=== PATIENT | male | born 1940 | race Caucasian/White ===

== ENCOUNTER 2019-06-02 09:19 | Outpatient (CLI) | payer OTHER, SELFPAY ==
[2019-06-02 09:40] LABS: Basophils Percent Auto 0.7 % (0.2-1.2); Eosinophils Absolute Auto 0.2 K/mm3 (0-0.3); Hematocrit 36.7 % (42.0-52.0); Hemoglobin 12.6 g/dL (14.0-18.0); Immature Granulocyte Absolute 0.01 K/mm3 (0.00-0.031); Immature Granulocyte Percent A 0.2 % (0-0.5); Lymphocytes Absolute Auto 1.01 K/mm3 (0.9-3.2); Lymphocytes Percent Auto 22.1 % (18.3-44.2); Mean Corpuscular HGB Conc 34.3 g/dl (32-36); Mean Corpuscular Hemoglobin 36.3 pg (26-34); Mean Corpuscular Volume 105.8 fl (80-100); Mean Platelet Volume 9.4 fl (7.4-10.4); Monocytes Absolute Auto 0.5 K/mm3 (0.1-0.6); Monocytes Percent Auto 10.3 % (2.6-8.5); Neutrophils Absolute Auto 2.8 K/mm3 (1.3-6.7); Neutrophils Percent Auto 61.7 % (45.5-73.1); Platelet Count Result 103 k/mm3 (150-375); Red Blood Count 3.47 M/mm3 (4.6-6.20); White Blood Count 4.6 K/mm3 (4.5-10.0)
[2019-06-02 12:28] LABS: Alanine Aminotransferase 43 U/L (4-50); Albumin Level 3.8 g/dL (3.5-5.1); Alkaline Phosphatase 77 U/L (38-126); Aspartate Amino Transferase 40 U/L (17-59); Bilirubin,Total 0.8 mg/dL (0.2-1.3); Blood Urea Nitrogen 18 mg/dL (9-20); Calcium 8.9 mg/dL (8.4-10.2); Carbon Dioxide 24 mmol/L (22-30); Chloride 101 mmol/L (98-107); Estimated Glomerular Filt Rate 53; Glucose 330 mg/dL (75-110); Potassium 4.7 mmol/L (3.4-5.0); Sodium 134 mmol/L (137-145)
[2019-06-02 13:55] LABS: Iron 97 ug/dL (49-181); Percent Iron Saturation 37 % (20-50)
[2019-06-02 16:46] LABS: Hemoglobin A1C 7.6 % (<5.7)
== END 2019-06-02 09:20 | disposition home or self-care (01) ==
PROVIDERS: Nurse Practitioner Family; PCP Family Medicine; Visit Provider Internal Medicine Hematology & Oncology
DX: E83.19 Other disorders of iron metabolism (principal); E11.65 Type 2 diabetes mellitus with hyperglycemia
CPT/HCPCS: 36415; 80053; 82728; 83036; 83540; 83550; 85025

== ENCOUNTER 2019-11-27 08:48 | Outpatient (CLI) | payer OTHER, SELFPAY ==
[2019-11-27 09:16] LABS: Basophils Percent Auto 0.3 % (0.2-1.2); Eosinophils Absolute Auto 0.1 K/mm3 (0-0.3); Eosinophils Percent Auto 4.5 % (0-4.4); Hematocrit 37.8 % (42.0-52.0); Hemoglobin 12.8 g/dL (14.0-18.0); Immature Granulocyte Absolute 0.01 K/mm3 (0.00-0.031); Immature Granulocyte Percent A 0.3 % (0-0.5); Immature Platelet Fraction Pct 5.2 % (0.9-11.2); Lymphocytes Absolute Auto 0.94 K/mm3 (0.9-3.2); Mean Corpuscular HGB Conc 33.9 g/dl (32-36); Mean Corpuscular Hemoglobin 35.9 pg (26-34); Mean Corpuscular Volume 105.9 fl (80-100); Mean Platelet Volume 10.1 fl (7.4-10.4); Monocytes Absolute Auto 0.5 K/mm3 (0.1-0.6); Monocytes Percent Auto 15.3 % (2.6-8.5); Neutrophils Absolute Auto 1.6 K/mm3 (1.3-6.7); Neutrophils Percent Auto 49.6 % (45.5-73.1); Platelet Count Result 91 k/mm3 (150-375); Red Blood Count 3.57 M/mm3 (4.6-6.20); Red Cell Distribution Width 12.4 % (11.5-14.5); White Blood Count 3.1 K/mm3 (4.5-10.0)
[2019-11-27 09:17] LABS: Atypical Lymphocytes Present; Platelet Estimate Decreased (Adequate)
[2019-11-27 15:21] LABS: Iron 99 ug/dL (49-181)
[2019-11-27 15:30] LABS: Percent Iron Saturation 38 % (20-50)
[2019-11-27 15:36] LABS: Alanine Aminotransferase 47 U/L (4-50); Albumin Level 3.7 g/dL (3.5-5.1); Alkaline Phosphatase 67 U/L (38-126); Anion Gap 12.5 mmol/L (7-16); Aspartate Amino Transferase 51 U/L (17-59); Bilirubin,Total 0.5 mg/dL (0.2-1.3); Blood Urea Nitrogen 22 mg/dL (9-20); Calcium 8.4 mg/dL (8.4-10.2); Carbon Dioxide 23 mmol/L (22-30); Chloride 105 mmol/L (98-107); Estimated Glomerular Filt Rate 53; Glucose 126 mg/dL (75-110); Potassium 4.5 mmol/L (3.4-5.0); Sodium 136 mmol/L (137-145)
== END 2019-11-27 08:49 | disposition home or self-care (01) ==
PROVIDERS: PCP Family Medicine; Visit Provider Internal Medicine Hematology & Oncology
DX: D69.6 Thrombocytopenia, unspecified (principal)
CPT/HCPCS: 36415; 80053; 82728; 83540; 83550; 85025; 85055

== ENCOUNTER 2020-05-26 08:39 | Outpatient (CLI) | payer OTHER, SELFPAY ==
[2020-05-26 09:18] LABS: Basophils Percent Auto 0.7 % (0.2-1.2); Eosinophils Absolute Auto 0.2 K/mm3 (0-0.3); Eosinophils Percent Auto 3.7 % (0-4.4); Hematocrit 37.9 % (42.0-52.0); Hemoglobin 12.9 g/dL (14.0-18.0); Immature Granulocyte Absolute 0.01 K/mm3 (0.00-0.031); Immature Granulocyte Percent A 0.2 % (0-0.5); Immature Platelet Fraction Pct 14.5 % (0.9-11.2); Lymphocytes Absolute Auto 1.02 K/mm3 (0.9-3.2); Lymphocytes Percent Auto 23.6 % (18.3-44.2); Mean Corpuscular Hemoglobin 36.6 pg (26-34); Mean Corpuscular Volume 107.7 fl (80-100); Monocytes Absolute Auto 0.5 K/mm3 (0.1-0.6); Neutrophils Absolute Auto 2.6 K/mm3 (1.3-6.7); Neutrophils Percent Auto 59.8 % (45.5-73.1); Platelet Count Result 61 k/mm3 (150-375); Red Blood Count 3.52 M/mm3 (4.6-6.20); Red Cell Distribution Width 12.2 % (11.5-14.5); White Blood Count 4.3 K/mm3 (4.5-10.0)
[2020-05-26 11:22] LABS: Iron 205 ug/dL (49-181)
[2020-05-26 11:24] LABS: Alanine Aminotransferase 52 U/L (4-50); Albumin Level 3.6 g/dL (3.5-5.1); Alkaline Phosphatase 70 U/L (38-126); Anion Gap 4 mmol/L (8-16); Aspartate Amino Transferase 52 U/L (17-59); Bilirubin,Total 1.3 mg/dL (0.2-1.3); Blood Urea Nitrogen 18 mg/dL (9-20); Calcium 8.5 mg/dL (8.4-10.2); Carbon Dioxide 26 mmol/L (22-30); Chloride 105 mmol/L (98-107); Estimated Glomerular Filt Rate 53; Glucose 180 mg/dL (75-110); Potassium 4.6 mmol/L (3.4-5.0); Sodium 135 mmol/L (137-145)
[2020-05-26 11:29] LABS: Hemoglobin A1C 7.5 % (<5.7)
[2020-05-26 11:34] LABS: Percent Iron Saturation 82 % (20-50)
== END 2020-05-26 08:40 | disposition home or self-care (01) ==
LOC: ANHLAB 08:41
PROVIDERS: Internal Medicine Hematology & Oncology; PCP Family Medicine; Visit Provider Physician Assistant
DX: E83.19 Other disorders of iron metabolism (principal); E11.22 Type 2 diabetes mellitus with diabetic chronic kidney disease; I12.9 Hypertensive chronic kidney disease with stage 1 through stage 4 chronic kidney disease, or unspecified chronic kidney disease; N18.30 Chronic kidney disease, stage 3 unspecified
CPT/HCPCS: 36415; 80053; 82728; 83036; 83540; 83550; 85025; 85055

== ENCOUNTER 2020-08-02 08:33 | Outpatient (CLI) | payer OTHER, SELFPAY ==
[2020-08-02 08:51] LABS: Eosinophils Absolute Auto 0.2 K/mm3 (0-0.3); Eosinophils Percent Auto 5.2 % (0-4.4); Hematocrit 35.3 % (42.0-52.0); Hemoglobin 11.9 g/dL (14.0-18.0); Immature Granulocyte Absolute 0.02 K/mm3 (0.00-0.031); Immature Granulocyte Percent A 0.5 % (0-0.5); Lymphocytes Absolute Auto 1.06 K/mm3 (0.9-3.2); Lymphocytes Percent Auto 26.4 % (18.3-44.2); Mean Corpuscular HGB Conc 33.7 g/dl (32-36); Mean Corpuscular Hemoglobin 37.1 pg (26-34); Mean Platelet Volume 9.6 fl (7.4-10.4); Monocytes Absolute Auto 0.5 K/mm3 (0.1-0.6); Neutrophils Absolute Auto 2.2 K/mm3 (1.3-6.7); Neutrophils Percent Auto 54.9 % (45.5-73.1); Platelet Count Result 99 k/mm3 (150-375); Red Blood Count 3.21 M/mm3 (4.6-6.20); Red Cell Distribution Width 12.4 % (11.5-14.5)
[2020-08-02 12:36] LABS: Iron 140 ug/dL (49-181)
[2020-08-02 12:44] LABS: Alanine Aminotransferase 49 U/L (4-50); Albumin Level 3.6 g/dL (3.5-5.1); Alkaline Phosphatase 60 U/L (38-126); Anion Gap 6 mmol/L (8-16); Aspartate Amino Transferase 51 U/L (17-59); Blood Urea Nitrogen 19 mg/dL (9-20); Calcium 8.5 mg/dL (8.4-10.2); Carbon Dioxide 26 mmol/L (22-30); Chloride 106 mmol/L (98-107); Estimated Glomerular Filt Rate 53; Glucose 155 mg/dL (75-110); Potassium 4.3 mmol/L (3.4-5.0); Sodium 138 mmol/L (137-145)
[2020-08-02 12:46] LABS: Percent Iron Saturation 58 % (20-50)
[2020-08-07 18:02] LABS: Platelet Ab,Indirect (IgA) POSITIVE (NEGATIVE); Platelet Ab,Indirect (IgG) POSITIVE (NEGATIVE); Platelet Ab,Indirect (IgM) NEGATIVE (NEGATIVE)
== END 2020-08-02 08:34 | disposition home or self-care (01) ==
LOC: ANHLAB 08:35
PROVIDERS: PCP Family Medicine; Visit Provider Internal Medicine Hematology & Oncology
DX: D69.6 Thrombocytopenia, unspecified (principal); E83.19 Other disorders of iron metabolism
CPT/HCPCS: 36415; 80053; 82728; 83540; 83550; 85025; 86022

== ENCOUNTER 2021-01-27 08:24 | Outpatient (CLI) | payer OTHER, SELFPAY ==
[2021-01-27 09:09] LABS: Basophils Percent Auto 0.1 % (0.2-1.2); Eosinophils Absolute Auto 0.2 K/mm3 (0-0.3); Eosinophils Percent Auto 2.5 % (0-4.4); Hematocrit 38.9 % (42.0-52.0); Immature Granulocyte Absolute 0.06 K/mm3 (0.00-0.031); Immature Granulocyte Percent A 0.7 % (0-0.5); Lymphocytes Absolute Auto 1.86 K/mm3 (0.9-3.2); Mean Corpuscular HGB Conc 33.4 g/dl (32-36); Mean Corpuscular Hemoglobin 37.1 pg (26-34); Mean Corpuscular Volume 111.1 fl (80-100); Monocytes Absolute Auto 0.6 K/mm3 (0.1-0.6); Monocytes Percent Auto 7.3 % (2.6-8.5); Neutrophils Absolute Auto 5.7 K/mm3 (1.3-6.7); Neutrophils Percent Auto 67.4 % (45.5-73.1); Platelet Count Result 74 k/mm3 (150-375); Red Cell Distribution Width 13.1 % (11.5-14.5); White Blood Count 8.5 K/mm3 (4.5-10.0)
[2021-01-27 11:22] LABS: Iron 112 ug/dL (49-181)
[2021-01-27 11:25] LABS: Alanine Aminotransferase 54 U/L (4-50); Albumin Level 3.7 g/dL (3.5-5.1); Alkaline Phosphatase 64 U/L (38-126); Anion Gap 12 mmol/L (8-16); Aspartate Amino Transferase 72 U/L (17-59); Bilirubin,Total 1.7 mg/dL (0.2-1.3); Blood Urea Nitrogen 35 mg/dL (9-20); Calcium 8.9 mg/dL (8.4-10.2); Carbon Dioxide 19 mmol/L (22-30); Chloride 104 mmol/L (98-107); Estimated Glomerular Filt Rate 58; Glucose 104 mg/dL (65-110); Potassium 3.9 mmol/L (3.4-5.0); Sodium 135 mmol/L (137-145)
[2021-01-27 11:31] LABS: Percent Iron Saturation 47 % (20-50)
== END 2021-01-27 08:25 | disposition home or self-care (01) ==
LOC: ANHLAB 08:25
PROVIDERS: PCP Family Medicine; Visit Provider Internal Medicine Hematology & Oncology
DX: E83.19 Other disorders of iron metabolism (principal)
CPT/HCPCS: 36415; 80053; 82728; 83540; 83550; 85025

== ENCOUNTER 2021-04-11 16:21 | Observation (INO) | payer OTHER, SELFPAY ==
--- NOTE | ~2021-04-11 | CT_ITS ---
EXAMINATION: CT abdomen pelvis w con DATE: 04/11/2021 21:33 INDICATION: Sepsis. Elevated bilirubin. TECHNIQUE: Computed tomography (CT) of the abdomen and pelvis was performed with 100 cc Omnipaque 350 intravenous contrast. The dose-length product was 1394.76 mGy-cm. Automated exposure control and ite rative reconstruction technique were employed. COMPARISON: CT dated 09/03/2016. FINDINGS: Lung bases are unremarkable. Heart size normal. No significant pleural or pericardial effus ion. Mild atherosclerosis of the abdominal aorta without aneurysm. No evidence for abdominal lymphade nopathy. There is cirrhosis of the liver. There is ascites. There is splenomegaly. There are multiple varices in the upper abdomen, suspicious for portal hypertension. There are gallstones. Mild gallbladder wall thickening with possible pericholecystic fluid. There is a heterogeneously enhancing irregular shape d 3 cm right renal mass, consistent with renal cell carcinoma until proven otherwise. There is a nono bstructing left renal stone. The adrenal glands and pancreas are within normal limits. Status post pa rtial colectomy. There is apical normal mass at the proximal colon contiguous with the surgical anast omosis. Colonic diverticulosis without evidence for diverticulitis. There are multiple ventral abdomi nal wall hernias containing fat. Moderate lumbar spondylosis. No focal lytic or blastic lesions. IMPRESSION: 1. Cholelithiasis with gallbladder wall thickening and pericholecystic fluid, suspicious for cholecys titis in the appropriate clinical setting. 2: Heterogeneously enhancing 3 cm right renal mass, consistent with renal cell carcinoma until proven otherwise. 3: Proximal colon mass at the surgical anastomosis, suspicious for adenocarcinoma. 4: Cirrhosis of the liver with evidence for portal hypertension and splenomegaly. 5: Small amount of ascites. Reviewed, dictated and finalized at location A. T OPERATIONS WORKER IMPRESSION: 1. Cholelithiasis with gallbladder wall thickening and pericholecystic fluid, s uspicious for cholecystitis in the appropriate clinical setting. 2: Heterogeneously enhancing 3 cm right renal mass, consistent with renal cell carcinoma until proven otherwise. 3: Proximal colon mass at the surgical anastomosis, suspicious for adenocarcin nick. 4: Cirrhosis of the liver with evidence for portal hypertension and splenomegal y. 5: Small amount of ascites.
--- NOTE | ~2021-04-11 | XR_ITS ---
EXAMINATION: XR chest 1V portable 04/11/2021 19:57 INDICATION: Fever and chills. History of tachycardia. Hypertension. PROCEDURE: AP portable chest COMPARISON: 10/22/2017 FINDINGS: The lungs are clear. The cardiomediastinal silhouette is within normal limits. There are no pleural effusions. There is no pneumothorax suspected. IMPRESSION: 1: NO ACUTE CARDIOPULMONARY DISEASE. Reviewed, dictated and finalized at location A. LLMENT NURSE
--- NOTE | ~2021-04-11 | XR_ITS ---
EXAMINATION: XR chest 1V portable INDICATION: Fever TECHNIQUE: Portable AP chest at 0604 hours COMPARISON: 04/11/2021 FINDINGS: There are minimal interstitial and airspace opacities throughout the lungs. The heart size is upper limits of normal for technique. There is no pleural effusion or pneumothorax. IMPRESSION: 1. Mild diffuse lung disease, consistent with pneumonia and/or pulmonary edema. Reviewed, dictated and finalized at location A. GER MAINTENANCE
--- NOTE | ~2021-04-11 | NM_ITS ---
EXAMINATION: NM hepatobiliary w pharm EXAM DATE: 04/13/2021 09:18 INDICATION: Cholecystitis. Cirrhosis, ascites. TECHNIQUE: 5 mCi Tc-99m mebrofenin (Choletec) was administered intravenously. Scintigraphic images o f the abdomen were obtained for one hour. At the 1 hour time point, 2.2 mcg sincalide (Kinevac) was a dministered by slow intravenous infusion, and imaging was continued for 30 minutes. Gallbladder eject ion fraction was calculated by the technologist. Correlation is made to CT abdomen pelvis from 2020. FINDINGS: There is normal clearance of radiotracer from the blood pool. There is homogeneous tracer u ptake by the liver. Activity progresses to the gallbladder and bowel. The gallbladder ejection fract ion (GBEF) is 81 % (most patients with gallbladder dysfunction have GBEF < 35%, but there is overlap with the normal range of 10-90%). IMPRESSION: Gallbladder ejection fraction 81%, normal. Some other considerations for gallbladder fin dings on CT include interstitial edema, chronic liver disease. Reviewed, dictated and finalized at location B. GRAPHER IMPRESSION: Gallbladder ejection fraction 81%, normal. Some other consideratio ns for gallbladder findings on CT include interstitial edema, chronic liver dis ease.
[2021-04-11 16:41] VITALS: BP 155/51; PULSE 98; RESP 20; TEMP 38.2; O2SAT 96
[2021-04-11 19:16] VITALS: BP 139/50; PULSE 92; RESP 18; TEMP 37.6; O2SAT 98
[2021-04-11 19:47] VITALS: PULSE 91; RESP 16; TEMP 37.7; O2SAT 98
[2021-04-11 19:52] VITALS: RESP 16
[2021-04-11 20:23] LABS: Hematocrit 34.5 % (42.0-52.0); Hemoglobin 11.6 g/dL (14.0-18.0); Immature Platelet Fraction Pct 4.4 % (0.9-11.2); Mean Corpuscular HGB Conc 33.6 g/dl (32-36); Mean Corpuscular Hemoglobin 38.2 pg (26-34); Mean Corpuscular Volume 113.5 fl (80-100); Mean Platelet Volume 10.1 fl (7.4-10.4); Platelet Count Result 106 k/mm3 (150-375); Red Blood Count 3.04 M/mm3 (4.6-6.20); Red Cell Distribution Width 13.9 % (11.5-14.5); White Blood Count 13.9 K/mm3 (4.5-10.0)
[2021-04-11 20:35] LABS: Albumin Level 3.9 g/dL (3.5-5.1); Alkaline Phosphatase 55 U/L (38-126); Anion Gap 11 mmol/L (8-16); Aspartate Amino Transferase 63 U/L (17-59); Bilirubin,Total 2.7 mg/dL (0.2-1.3); Blood Urea Nitrogen 17 mg/dL (9-20); Calcium 9.2 mg/dL (8.4-10.2); Carbon Dioxide 20 mmol/L (22-30); Chloride 102 mmol/L (98-107); Estimated CRCL calculation 51 ml/min; Estimated Glomerular Filt Rate 58; Glucose 252 mg/dL (65-110); Lactic Acid Reflex 5.1 mmol/L (0.7-2.1); Potassium 4.6 mmol/L (3.4-5.0); Sodium 133 mmol/L (137-145)
[2021-04-11 20:36] LABS: Platelet Estimate Adequate (Adequate)
--- NOTE | 2021-04-11 20:36 | ED.FEVER ---
HPI - Fever General Chief Complaint: Fever <Ye Recinos MD - Last Filed: 04/11/21 21:15> Stated Complaint: chills, fever <Ye Recinos MD - Last Filed: 04/11/21 21:15> Time Seen by Provider: 04/11/21 19:46 <Ye Recinos MD - Last Filed: 04/11/21 21:15> Source: patient and family <Ye Recinos MD - Last Filed: 04/11/21 21:15> Mode of arrival: ambulatory <Ye Recinos MD - Last Filed: 04/11/21 21:15> Limitations: no limitations <Ye Recinos MD - Last Filed: 04/11/21 21:15> History of Present Illness HPI Narrative: 80-year-old male History of hypertension and type 2 diabetes Patient complains of abrupt onset around 10:00 this morning of chills and sweats Family checked on him and found him buried under a bunch of blankets Patient complains that he feels dehydrated but he does not have any other focal symptoms, denies a sore throat, no cough or shortness of breath, no nausea vomiting or diarrhea, no urinary symptoms no rash or musculoskeletal pains <Ye Recinos MD - Last Filed: 04/11/21 21:15> Related Data Home Medications: Home Medications Medication Instructions Recorded Confirmed aspirin 81 mg tablet,delayed 81 mg PO DAILY 01/04/21 01/04/21 release <Ye Recinos MD - Last Filed: 04/11/21 21:15> Allergies/Adverse Reactions: Allergies Allergy/AdvReac Type Severity Reaction Status Date / Time EUGENE Inhibitors Allergy Intermediate cough Verified 01/04/21 13:54 shellfish derived Allergy Mild Itching Verified 04/11/21 20:38 AND RASH <Ye Recinos MD - Last Filed: 04/11/21 21:15> Review of Systems Review of Systems: All systems reviewed & are unremarkable except as noted in HPI and below <Ye Recinos MD - Last Filed: 04/11/21 21:15> Constitutional: Constitutional: Reports chills, Reports fatigue, Reports fever(s) and Denies headache(s) <Ye Recinos MD - Last Filed: 04/11/21 21:15> Eyes: Eyes: Reports no additional eye complaints and Denies change in vision <Ye Recinos MD - Last Filed: 04/11/21 21:15> ENT: Denies headache(s) and Denies sore throat <Ye Recinos MD - Last Filed: 04/11/21 21:15> Cardiovascular: Cardiovascular: Denies chest pain and Denies dyspnea <Ye Recinos MD - Last Filed: 04/11/21 21:15> Respiratory: Respiratory: Denies cough and Denies dyspnea <Ye Recinos MD - Last Filed: 04/11/21 21:15> Gastrointestinal: Gastrointestinal: Denies abdominal pain, Denies diarrhea and Denies vomiting <Ye Recinos MD - Last Filed: 04/11/21 21:15> Genitourinary: Genitourinary: Denies dysuria and Denies urinary frequency <Ye Recinos MD - Last Filed: 04/11/21 21:15> Musculoskeletal: Musculoskeletal: Reports myalgias, Denies deformity, Denies arthralgias, Denies joint swelling and Denies numbness <Ye Recinos MD - Last Filed: 04/11/21 21:15> Integumentary/Breasts: Skin/Breast: Denies rash and Denies wounds <Ye Recinos MD - Last Filed: 04/11/21 21:15> Neurologic: Denies headache(s), Denies focal weakness and Denies numbness <Ye Recinos MD - Last Filed: 04/11/21 21:15> Psychiatric: Psychiatric: Reports no additional psychiatric complaints <Ye Recinos MD - Last Filed: 04/11/21 21:15> Endocrine: Endocrine: Reports no additional endocrine complaints <Ye Recinos MD - Last Filed: 04/11/21 21:15> Hematologic/Lymphatic: Hematologic/Lymphatic: Reports no additional hematologic/lymphatic complaints <Ye Recinos MD - Last Filed: 04/11/21 21:15> Allergic/Immunologic: Allergic/Immunologic: Reports no additional allergic/immunologic complaints <Ye Recinos MD - Last Filed: 04/11/21 21:15> PMFSH Past Medical History Medical History: Medical History (Updated 04/11/21 @ 23:21 by Prosper Russell MD) Alcohol abuse Alcohol dependence, in remission Benign reactive hypertension Chronic kidney disease, stage 3 (moderate) Chronic kidney disease, stage 3a Cirrhosis
[2021-04-11 20:44] LABS: Alanine Aminotransferase 52 U/L (4-50)
[2021-04-11] MEDS: LACTATED RINGERS 1,000 ML 999 ML IV CONT ×2 (21:00→22:26)
[2021-04-11 21:57] LABS: Add Urine Microscopic? YES; Appearance Urine Clear (Clear); Bacteria Urine 1+ /hpf; Bilirubin Urine Negative (Negative); Blood Urine 1+ (Negative); Color Urine Yellow (Yellow); Glucose Urine UA 2+ mg/dL (Negative); Ketones Urine Negative (Negative); Leukocyte Esterase Ur 1+ LEU/UL (Negative); Mucus Urine Rare /lpf; Nitrate Urine Negative (Negative); Protein Urine 1+ mg/dL (Negative); Squamous Epithelial Cell Urine Few /hpf (Few)
[2021-04-11 22:01] LABS: Specific Grav Ur 1.043 (1.001-1.035)
[2021-04-11 22:27] VITALS: BP 154/106; PULSE 90; RESP 18; O2SAT 98
[2021-04-11 22:38] VITALS: BP 175/79
[2021-04-11 23:19] LABS: Reflex Lactic Acid Yes or No Add Lactic
[2021-04-12] VITALS (15 sets, daily range): BP systolic 156–180; BP diastolic 61–82; PULSE 72–88; RESP 12–19; TEMP 36.6–37.1; O2SAT 95–100; BMI 36.6
[2021-04-12] MEDS: SODIUM CHLORIDE 0.9% IV 1,000 ML 125 ML IV CONT ×3 (02:45→18:14)
--- NOTE | 2021-04-12 04:53 | PM.IMHP ---
H&P: HPI History of Present Illness Date/Time: 04/12/21 04:53 Chief Complaint: Chills Narrative: This is a 80-year-old male with past medical history of hypertension and type 2 diabetes history of colon cancer diagnosed in 2010 status post colectomy history of alcohol abuse portal hypertension presents with abrupt onset of chills and feeling dehydrated. He denies any other symptoms like sore throat cough shortness of breath no nausea vomiting or diarrhea. Also denies any urinary symptoms. His family brought him in for evaluation. In the ER he was noted to have fever of 38.2 mildly hypertensive adequate oxygen saturation. Laboratory evaluation showed mild leukocytosis at 13.9 mild hyponatremia of 133 mild anemia at 11.6 hyperglycemia of 252 was noted to have elevated lactic acid was 5.1 along with mildly elevated transaminases and total bilirubin of 2.7. Influenza screen a and B was done which came back negative. She has been swab for COVID which is pending. His urinalysis showed some RBC along with WBC and urine culture has been sent. He has felt better since he is been in the ER. Chest x-ray was negative for any acute cardiopulmonary disease. He subsequently had a CT abdomen and pelvis done for infectious source which revealed multiple different abnormal findings. 1. cholelithiasis with gallbladder wall thickening and pericholecystic fluid suspicious for cholecystitis 2. heterogeneously enhancing 3 cm right renal mass consistent with renal cell carcinoma 3. proximal colon mass at the surgical anastomosis suspicious for adenocarcinoma 4. cirrhosis of liver with evidence for portal hypertension and splenomegaly 5. small amount of ascites Tertiary center were contacted for transfer for further treatment however none of the facilities had open bed available and hence he is getting admitted for further treatment. Review of Systems Review of Systems: - CONSTITUTIONAL: Denies weight loss, reports fever and chills. - HEENT: Denies changes in vision and hearing - RESPIRATORY: Denies SOB and cough. - CV: Denies palpitations and CP. - GI: Denies abdominal pain, nausea, vomiting and diarrhea. - : Denies dysuria and urinary frequency. - MSK: Denies myalgia and joint pain. - SKIN: Denies rash and pruritus. - NEUROLOGICAL: Denies headache and syncope. - PSYCHIATRIC: Denies recent changes in mood. Denies anxiety and depression. All systems reviewed & are unremarkable except as noted in HPI and below Constitutional: Constitutional: Reports fatigue and Reports weakness Neurologic: Reports weakness Endocrine: Endocrine: Reports fatigue [facility] Past Medical History Medical History (Updated 04/11/21 @ 23:21 by Prosper Russell MD) Alcohol abuse Alcohol dependence, in remission Benign reactive hypertension Chronic kidney disease, stage 3 (moderate) Chronic kidney disease, stage 3a Cirrhosis Colon cancer DISH (diffuse idiopathic skeletal hyperostosis) Diverticulosis DM type 2 causing CKD stage 3 History of colon cancer Macrocytic anemia Neuropathy associated with cancer Obesity (BMI 30.0-34.9) 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 Portal hypertension Thrombocytopenia Type 2 diabetes mellitus with diabetic chronic kidney disease Surgical History Surgical History History of colon resection Family History Family History (Updated 04/12/21 @ 03:40 by Marilynn Fernando RN) Sibling Family history of malignant neoplasm of testis Malignant neoplasm of prostate Family history of arthritis Patient's brother is Hypertension Family history of gout Social History Social History Social History: Single Smoking status: Never smoker Second hand tobacco smoke exposure: No Alcohol intake: current Drinks per week: 4 Alcohol use details: couple times a month Substance use: never Subs
[2021-04-12 06:34] LABS: Basophils Percent Auto 0.2 % (0.2-1.2); Eosinophils Absolute Auto 0.1 K/mm3 (0-0.3); Eosinophils Percent Auto 0.8 % (0-4.4); Hematocrit 31.9 % (42.0-52.0); Hemoglobin 10.7 g/dL (14.0-18.0); Immature Granulocyte Absolute 0.05 K/mm3 (0.00-0.031); Immature Granulocyte Percent A 0.4 % (0-0.5); Lymphocytes Absolute Auto 1.18 K/mm3 (0.9-3.2); Lymphocytes Percent Auto 9.8 % (18.3-44.2); Mean Corpuscular HGB Conc 33.5 g/dl (32-36); Mean Corpuscular Hemoglobin 37.4 pg (26-34); Mean Corpuscular Volume 111.5 fl (80-100); Monocytes Absolute Auto 1.2 K/mm3 (0.1-0.6); Monocytes Percent Auto 9.9 % (2.6-8.5); Neutrophils Absolute Auto 9.5 K/mm3 (1.3-6.7); Neutrophils Percent Auto 78.9 % (45.5-73.1); Platelet Count Result 84 k/mm3 (150-375); Red Blood Count 2.86 M/mm3 (4.6-6.20); Red Cell Distribution Width 13.7 % (11.5-14.5); White Blood Count 12.1 K/mm3 (4.5-10.0)
[2021-04-12 06:40] LABS: Alanine Aminotransferase 41 U/L (4-50); Albumin Level 3.1 g/dL (3.5-5.1); Alkaline Phosphatase 52 U/L (38-126); Anion Gap 7 mmol/L (8-16); Aspartate Amino Transferase 45 U/L (17-59); Bilirubin,Total 1.9 mg/dL (0.2-1.3); Blood Urea Nitrogen 16 mg/dL (9-20); Calcium 8.9 mg/dL (8.4-10.2); Carbon Dioxide 23 mmol/L (22-30); Chloride 106 mmol/L (98-107); Estimated CRCL calculation 51 ml/min; Estimated Glomerular Filt Rate 58; Glucose 251 mg/dL (65-110); Potassium 3.8 mmol/L (3.4-5.0); Sodium 136 mmol/L (137-145)
[2021-04-12 06:41] LABS: Hemoglobin A1C 7.4 % (<5.7)
[2021-04-12 06:42] LABS: Lactic Acid Reflex 2.3 mmol/L (0.7-2.1)
--- NOTE | 2021-04-12 08:19 | WPDGICN ---
Assessment and Plan Assessment and plan (1) Fever: Qualifiers: Fever type: unspecified Qualified Code(s): R50.9 - Fever, unspecified Code(s): R50.9 - Fever, unspecified Status: Acute Assessment and Plan: Fever noted at time of presentation. Etiology unclear but scanning suggest he may have cholelithiasis with cholecystitis. Agree with surgical evaluation. Timing of intervention and cholecystectomy may be complicated by findings on the CT scan including underlying cirrhosis and apparent recurrent colon mass. (2) Kidney mass: Code(s): N28.89 - Other specified disorders of kidney and ureter Status: Acute Assessment and Plan: CT scan suggest patient has a renal cell carcinoma. Hematuria is noted on the urinalysis. Follow-up with Urology service is suggested but this may be secondary to his other infectious process. (3) Colonic mass: Code(s): K63.89 - Other specified diseases of intestine Status: Acute Assessment and Plan: CT scan suggest a colon mass. Patient does have a history of colon cancer in 2009 felt to be cured. Given the mass at the anastomosis, recurrent cancer needs to be excluded by a colonoscopy. Alternate explanations for this mass includes scar tissue Septra. Likely this will need to be accomplished before surgery unless patient decompensates. Hopefully this can be done or Saturday this week. (4) Cholelithiasis: Qualifiers: Biliary obstruction: without biliary obstruction Cholelithiasis location: other site Qualified Code(s): K80.80 - Other cholelithiasis without obstruction Code(s): K80.20 - Calculus of gallbladder without cholecystitis without obstruction Status: Acute Assessment and Plan: CT scan suggest gallstones and possible cholecystitis. Surgery follow-up anticipated. Ultimate cholecystectomy likely to be required but could be higher risk because of what appears to be underlying cirrhosis of liver. (5) Obesity (BMI 30.0-34.9): Code(s): E66.9 - Obesity, unspecified Status: Acute (6) Alcohol abuse: Code(s): F10.10 - Alcohol abuse, uncomplicated Status: Acute (7) Cirrhosis: Code(s): K74.60 - Unspecified cirrhosis of liver Status: Acute Assessment and Plan: Patient appears to have cirrhosis of the liver this correlates with his lab work including thrombocytopenia and macrocytosis. This also correlates with x-ray findings. This appears to be on the basis of his significant alcohol abuse over the years. Likely will complicate surgical plans. Surgery consult farr pending. Supportive care advised at this time. He only has mild ascites evident on the CT scan. Low-salt diet would be advised in low dose of diuretics if necessary. GI Consult Note Consult date/time: 04/12/21 08:19 HPI: Robby Graves is a 80 year old male I am asked to see because of history of colon cancer and abnormal CT scan findings. Patient reported to be in his usual state of health till 1 week ago when he began to have a fever. Began to have chills and for this reason presented to the emergency room. He denies abdominal pain or change in bowel habits. He has been eating adequately. A CT scan of the abdomen was performed which revealed multiple abnormalities including of renal mass. Changes consistent with cirrhosis of the liver. Gallstones with suspicion of cholecystitis. Evidence for previous right hemicolectomy with question of a mass at the ileocolonic anastomosis. Patient has a distant history of colon cancer in 2009 this was resected and felt stable. He gives no history of follow-up for that. He has seen Oncology because of Thrombocytopenia. At present patient denies abdominal pain. His bowel habits been normal apparently has been eating well. He does drink alcohol routine basis. Review of Systems Review of Systems: All systems reviewed & are unremarkable
[2021-04-12 08:48] LABS: EDCOVIDSCREEN Negative (Negative)
[2021-04-12 09:25] LABS: Glucose Point of Care 200 mg/dl (65-105)
[2021-04-12] MEDS: ASPIRIN 81 MG ENTERIC TABLET PO (09:35)
[2021-04-12] MEDS: ENOXAPARIN 40 MG/0.4 ML SYRINGE SUB-Q (09:36)
[2021-04-12 11:07] LABS: Carcinoembryonic Antigen 4.2 ng/mL (0.0-3.0)
--- NOTE | 2021-04-12 11:50 | PC.NURSE ---
Assumed care of pt, currently resting in NAD. Pt A&Ox4, denies any needs at this time. Lunch order placed for patient. Call light in reach.
--- NOTE | 2021-04-12 12:17 | PM.CNGS ---
Assessment and Plan Assessment and plan (1) Acute calculous cholecystitis: Code(s): K80.00 - Calculus of gallbladder with acute cholecystitis without obstruction Status: Acute Assessment and Plan: CT scan reviewed and discussed with the patient in detail. He has evidence of cholelithiasis with gallbladder wall thickening and pericholecystic fluid, concerning for acute cholecystitis. He also has leukocytosis and presented with a low-grade fever. His LFTs are elevated, but have trended down this morning. He also has a history of liver cirrhosis with portal hypertension. The patient is not complaining of any abdominal pain and denies any recent issues with abdominal pain prior to admission. Clinically, he appears to be improving with current medical management. The Hospitalist ordered a HIDA scan for today. We will await these results. He would be an extremely high risk surgical candidate for a cholecystectomy considering his liver cirrhosis and multiple medical problems. If the HIDA scan does show cystic duct obstruction, then we may need to consider percutaneous cholecystostomy tube placement. For now, continue broad-spectrum IV antibiotics. Repeat labs and monitor closely. We would agree with a colonoscopy to further assess the possible colon mass noted on the CT scan. If this is found to be a recurrent colon cancer, then we would likely recommend he seek further treatment at a tertiary care facility who also has hepatobiliary specialists to help coordinate his care. Thank you for allowing us to see the patient in consultation and we will continue to follow along with you. (2) SIRS (systemic inflammatory response syndrome): Code(s): R65.10 - Systemic inflammatory response syndrome (SIRS) of non-infectious origin without acute organ dysfunction Status: Acute Assessment and Plan: SIRS criteria met with leukocytosis, fever, and lactic acidosis. Unclear etiology. Possibly secondary to acute cholecystitis, although patient is completely asymptomatic. CXR without any acute findings. UA not suggestive of UTI. Blood cultures pending. Continue broad-spectrum IV antibiotics and IV fluids. HIDA pending. Monitor labs. (3) Elevated lactic acid level: Code(s): R79.89 - Other specified abnormal findings of blood chemistry Status: Acute Assessment and Plan: Lactic acid 5.1 on admission and has come down to 2.3 with IV fluid hydration and medical management. Continue to monitor labs. See plan above. (4) Colonic mass: Code(s): K63.89 - Other specified diseases of intestine Status: Acute Assessment and Plan: GI and Oncology consulted. He has a mass in the proximal colon where the previous anastomosis is located. This is concerning for adenocarcinoma. CEA checked and elevated at 4.2. GI recommendations noted and planning a colonoscopy in the next 1-2 days. (5) Kidney mass: Code(s): N28.89 - Other specified disorders of kidney and ureter Status: Acute Assessment and Plan: Right renal mass that is incidentally noted on the CT scan. In review of his chart, he did have a CT scan in 2017 for a right renal mass found on an ultrasound. At that time, the Radiologist suggested this appeared to be a hemorrhagic cystic mass and he was found to have other renal cysts. I discussed the findings with the patient. Imaging could be compared to 2017. Oncology was consulted. (6) Cirrhosis: Code(s): K74.60 - Unspecified cirrhosis of liver Status: Acute Assessment and Plan: He has known alcoholic liver cirrhosis with evidence of portal hypertension and small volume of ascites on the CT scan. This makes the patient a very high risk surgical candidate for a cholecystectomy. See plan above. (7) Type 2 diabetes mellitus with diabetic chronic kidney disease: Code(s): E11.22 - Type 2 diabetes mellitus with diabetic chronic kidney disease Status: Acute (8) History of colon cancer:
--- NOTE | 2021-04-12 12:47 | PDONCCN ---
HPI - Date of Consult Date/Time: 04/12/21 12:47 Requesting Physician: Darwin Anthony MD Primary Care Provider: Sneha Garcia MD - Consult Narrative Reason for consult: Relapsed colon cancer and renal mass Narrative: Robby Graves is a 80 year old male with history of colon cancer diagnosed in 2009 status post colectomy as well as history of liver cirrhosis secondary to alcohol abuse. He came into the hospital with fevers and chills for couple of days duration. He denies any cough and sore throat. He denies any diarrhea and nausea vomiting. Denies any shortness of breath. Labs showed WBC count of 13.9 with hemoglobin of 11.6. CT abdomen and pelvis was performed that showed 3 cm right renal mass consistent with renal cell carcinoma as well as proximal colon mass at surgical anastomosis site suspicious for relapse adenocarcinoma along with liver cirrhosis and splenomegaly. He denies any diarrhea constipation and bleeding. He denies any dysuria and hematuria. Weight and appetite stable Review of Systems - Review of Systems All systems reviewed & are unremarkable except as noted in HPI and bel - Neurologic Reports weakness, Denies headache(s), Denies focal weakness, Denies numbness PMFSH Medical History: Medical History (Last Reviewed 04/12/21 @ 12:43 by TEJA Rome) Alcohol abuse Benign reactive hypertension Chronic kidney disease, stage 3 (moderate) Cirrhosis with portal hypertension and ascites DISH (diffuse idiopathic skeletal hyperostosis) Diverticulosis DM type 2 causing CKD stage 3 History of colon cancer 2009 s/p right hemicolectomy and chemotherapy Macrocytic anemia Neuropathy associated with cancer Portal hypertension Thrombocytopenia Surgical History: Surgical History (Last Reviewed 04/12/21 @ 12:43 by TEJA Rome) History of colon resection 2009 Family History: Family History (Last Reviewed 04/12/21 @ 12:43 by TEJA Rome) Sibling Family history of malignant neoplasm of testis Malignant neoplasm of prostate Family history of arthritis Patient's brother is Hypertension Family history of gout - Social History Social History: Social History (Last Reviewed 04/12/21 @ 12:43 by TEJA Rome) Gender Identity: Gender identity (if verbalized by the patient): Male Sexual Orientation: Sexual Orientation (if Verbalized by the Patient): Straight or Heterosexual Alcohol Use: Alcohol intake: current Drinks per week: 4 Alcohol use details: couple times a month Substance Use: Substance use: never Substance use type: does not use Others: Spiritual care concerns: No Living Arrangements: Living arrangements: alone Smoking Status: Smoking status: Never smoker Second hand tobacco smoke exposure: No Meds Home Medications Medication Instructions Recorded Confirmed Type lancets 33 gauge #100 ea 08/23/20 04/12/21 Rx blood sugar diagnostic #300 ea 08/25/20 04/12/21 Rx blood sugar diagnostic #300 ea 09/06/20 04/12/21 Rx losartan 25 mg tablet 25 mg PO BID #180 tablet 11/23/20 04/12/21 Rx metformin 1,000 mg tablet 1,000 mg PO BID #180 tablet 11/23/20 04/12/21 Rx aspirin 81 mg tablet,delayed 81 mg PO DAILY 01/04/21 04/12/21 History release Allergies Allergy/AdvReac Type Severity Reaction Status Date / Time EUGENE Inhibitors Allergy Intermediate cough Verified 04/12/21 03:35 shellfish derived Allergy Mild Itching Verified 04/12/21 03:35 AND RASH Results - Labs CBC & Chem 7: 04/12/21 06:20 04/12/21 06:20 Labs: Short CBC 04/11/21 04/12/21 Range/Units 20:15 06:20 WBC 13.9 H 12.1 H (4.5-10.0) K/mm3 Hgb 11.6 L 10.7 L (14.0-18.0) g/dL Hct 34.5 L 31.9 L (42.0-52.0) % Plt Count 106 L 84 L (150-375) k/mm3 [facility] 04/11/21 04/12/21 20:15 06:20 Sodium 133 L 136 L Potassium 4.6 3.8 Chloride 1
[2021-04-12 13:34] LABS: Glucose Point of Care 226 mg/dl (65-105)
[2021-04-12 14:30] LABS: SARS-CoV-2 RNA PCR Negative
[2021-04-12] MEDS: INSULIN ASPART (*BKC) 100 UNITS/ML SUB-Q (14:35)
--- NOTE | 2021-04-12 14:44 | PM.IMPN ---
Progress Note: A&P Assessment and Plan (1) Sepsis: Code(s): A41.9 - Sepsis, unspecified organism Status: Acute (2) Acute calculous cholecystitis: Code(s): K80.00 - Calculus of gallbladder with acute cholecystitis without obstruction Status: Acute (3) Kidney mass: Code(s): N28.89 - Other specified disorders of kidney and ureter Status: Acute (4) Colonic mass: Code(s): K63.89 - Other specified diseases of intestine Status: Acute (5) Cirrhosis: Code(s): K74.60 - Unspecified cirrhosis of liver Status: Acute (6) Alcohol dependence, in remission: Code(s): F10.21 - Alcohol dependence, in remission Status: Deleted (7) Chronic kidney disease, stage 3a: Code(s): N18.31 - Chronic kidney disease, stage 3a Status: Deleted (8) Type 2 diabetes mellitus with diabetic chronic kidney disease: Code(s): E11.22 - Type 2 diabetes mellitus with diabetic chronic kidney disease Status: Acute (9) History of colon cancer: Code(s): Z85.038 - Personal history of other malignant neoplasm of large intestine Status: Acute (10) Portal hypertension: Code(s): K76.6 - Portal hypertension Status: Acute (11) Benign reactive hypertension: Code(s): I10 - Essential (primary) hypertension Status: Acute (12) Obesity (BMI 30.0-34.9): Code(s): E66.9 - Obesity, unspecified Status: Deleted Additional Plan Patient presents with complaints of fever and found to have sepsis present on admission (fever, leukocytosis and lactic acidosis). Etiology unclear but concern for acute cholecystitis. UA noted but no UCx obtained. BCx pending. CXR clear. UTD on vaccines. Influenza negative. Agree with HIDA scan. WBC better. Fever curve better. Continue IV abx. General surgery consulted and appreciate their input. CT scan also showing colonic mass at the anastomotic site. CEA elevated to 4.2. GI consulted with plans for colonoscopy in the morning. The renal mass notes and blood in the urine. Consider RCC. Will need to follow up with urology after discharge once the acute process improved. He has a hx of colon cancer and oncology also consulted and appreciate their input. A1c 7.4. Continue sliding scale. He will be NPO after MN. Review home medications and resume. Continue to monitor. Further recommendations as course dictates. Stop Lovenox and ASA given the low plt count and possible procedures that are planned. SCDs. Subjective Date/time seen: 04/12/21 14:44 Interval history: 80yo male with cirrhosis and hx of colon cancer here for fevers. Patient feels well. No n/v. Has been having diarrheal stools. Not on abx recently. No dysuria or heamturia. Having fevers off/on x 1 week. No anosmia or dysgeusia. No cough or SOB. No weight loss. No abd pain. 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 COVID vaccine with booster. Had flu vaccine in January. Exam Narrative: Tm 100.8 98.4 180/64 76 13 95% RA Gen - NARD Chest - bibasilar inspiratory crackles, nml RR CV - RRR S1/S2 Abd - Soft, obese, NT Ext - trace pedal edema Neuro - Alert and oriented. Nonfocal exam. Psych - Nml mood and affect Skin - small diffuse excoriations/papules mostly abd and LE. Objective Data Vital Signs Vital Signs: Vital Signs - 24 hr 04/11/21 16:41 04/11/21 19:16 04/11/21 19:47 Temperature 100.8 F H 99.6 F 99.8 F H Pulse Rate 98 92 91 Respiratory Rate 20 18 16 Blood Pressure 155/51 H 139/50 L Pulse Oximetry 96 98 98 04/11/21 19:52 04/11/21 22:27 04/11/21 22:38 Temperature Pulse Rate 90 Respiratory Rate 16 18 Blood Pressure 154/106 H 175/79 H Pulse Oximetry 98 04/12/21 00:16 04/12/21 06:20 04/12/21 07:49 Temperature 98.7 F 98.4 F Pulse Rate 88 80 76 Respiratory Rate 18 18 18 Blood Pressure 158/82 H 180/64 H Pulse Oximetry 99 98 95 04/12/21 11:02 04/12/21 11:15 04/12/21 11
--- NOTE | 2021-04-12 16:23 | ADMGEN ---
This patient, Robby Graves, was admitted to [facility] Surg Room 306-02. Patient/family oriented to hospital policies and general routines including ID bracelet, bed and alarms, visiting hours, pain management, procedures, bathroom and other care routines, personal items, smoking policy, room service/diet, and visiting hours. Information on how to activate the Rapid Response Team has been discussed. Patient/Family are encouraged to report perceived risks to care and to ask questions if they do not understand what they are told or what they should do.
[2021-04-12] MEDS: LOSARTAN POTASSIUM 25 MG TABLET PO (17:04)
[2021-04-12 17:11] LABS: Glucose Point of Care 188 mg/dl (65-105)
[2021-04-12 21:55] LABS: Glucose Point of Care 163 mg/dl (65-105)
[2021-04-13 00:21] VITALS: O2SAT 95
[2021-04-13] MEDS: SODIUM CHLORIDE 0.9% IV 1,000 ML 125 ML IV CONT ×2 (01:01→11:11)
[2021-04-13 05:59] VITALS: BP 127/60; PULSE 63; RESP 18; TEMP 36.8; O2SAT 97
[2021-04-13 07:10] LABS: Basophils Percent Auto 0.6 % (0.2-1.2); Eosinophils Absolute Auto 0.3 K/mm3 (0-0.3); Eosinophils Percent Auto 4.1 % (0-4.4); Hematocrit 29.7 % (42.0-52.0); Hemoglobin 9.9 g/dL (14.0-18.0); Immature Granulocyte Absolute 0.02 K/mm3 (0.00-0.031); Immature Granulocyte Percent A 0.3 % (0-0.5); Lymphocytes Absolute Auto 1.09 K/mm3 (0.9-3.2); Lymphocytes Percent Auto 16.6 % (18.3-44.2); Mean Corpuscular HGB Conc 33.3 g/dl (32-36); Mean Corpuscular Hemoglobin 37.6 pg (26-34); Mean Corpuscular Volume 112.9 fl (80-100); Mean Platelet Volume 10.2 fl (7.4-10.4); Monocytes Absolute Auto 0.7 K/mm3 (0.1-0.6); Monocytes Percent Auto 10.4 % (2.6-8.5); Neutrophils Absolute Auto 4.5 K/mm3 (1.3-6.7); Platelet Count Result 80 k/mm3 (150-375); Red Blood Count 2.63 M/mm3 (4.6-6.20); Red Cell Distribution Width 13.7 % (11.5-14.5); White Blood Count 6.6 K/mm3 (4.5-10.0)
[2021-04-13 07:20] LABS: INR 1.6; Prothrombin Time 18.6 Seconds (11.1-14.7)
[2021-04-13 07:21] LABS: Partial Thromboplastin Time 39.4 SECONDS (22.3-36.8)
[2021-04-13 07:23] LABS: Lactic Acid Reflex 1.1 mmol/L (0.7-2.1)
[2021-04-13 07:25] LABS: Alanine Aminotransferase 35 U/L (4-50); Albumin Level 2.8 g/dL (3.5-5.1); Alkaline Phosphatase 49 U/L (38-126); Anion Gap 9 mmol/L (8-16); Aspartate Amino Transferase 40 U/L (17-59); Bilirubin,Total 1.5 mg/dL (0.2-1.3); Blood Urea Nitrogen 14 mg/dL (9-20); CRP 8.9 mg/dL (<1.0); Carbon Dioxide 20 mmol/L (22-30); Chloride 110 mmol/L (98-107); Estimated CRCL calculation 49 ml/min; Estimated Glomerular Filt Rate 53; Glucose 129 mg/dL (65-110); Magnesium 1.8 mg/dL (1.6-2.3); Phosphorus 2.7 mg/dL (2.5-4.5); Potassium 3.7 mmol/L (3.4-5.0); Sodium 139 mmol/L (137-145)
--- NOTE | 2021-04-13 09:31 | WPDGIPROGNO ---
Progress Note: A&P Assessment and Plan (1) Acute calculous cholecystitis: Code(s): K80.00 - Calculus of gallbladder with acute cholecystitis without obstruction Status: Acute Assessment and Plan: Acute cholecystitis with gallstones identified by CT scan. Patient is to have HIDA scan today. Surgery following. Clinically he is improving on antibiotics. (2) Alcohol abuse: Code(s): F10.10 - Alcohol abuse, uncomplicated Status: Acute Assessment and Plan: Long time use of alcohol abuse identified. He should discontinue alcohol use. (3) Kidney mass: Code(s): N28.89 - Other specified disorders of kidney and ureter Status: Acute Assessment and Plan: Renal mass suspicious for renal cell carcinoma identified by CT scan. Ultimately will need nephrology follow-up at some point electively. Hematuria peers to be on this basis. (4) Colonic mass: Code(s): K63.89 - Other specified diseases of intestine Status: Acute Assessment and Plan: CT scan suggest mass at the ileocolonic anastomosis. Colonoscopy will be planned tomorrow after preparation today. He has not had screening colonoscopy after colon cancer resection 10 years ago. CEA is mildly elevated (5) Diverticulosis: Code(s): K57.90 - Diverticulosis of intestine, part unspecified, without perforation or abscess without bleeding Status: Chronic (6) History of colon cancer: Code(s): Z85.038 - Personal history of other malignant neoplasm of large intestine Status: Acute Assessment and Plan: patient has a history of colon cancer resected 10 years ago in [place]. Plan is for follow-up colonoscopy at this time given finding of a suspicious lesion at the ileocolonic anastomosis on CT scan. (7) Cirrhosis: Code(s): K74.60 - Unspecified cirrhosis of liver Status: Acute Assessment and Plan: Patient has cirrhosis of the liver evident by lab test as well as clinical exam and CT scan findings. Continued supportive care suggested. Subjective Date/time seen: 04/13/21 09:31 Patient alert and comfortable this morning. He denies abdominal pain. No fever. Bowel habits have remained normal. Review of Systems Review of Systems: All systems reviewed & are unremarkable except as noted in HPI and below Exam Narrative: On physical exam patient is alert. Vital signs stable. HEENT exam reveals no icterus. Lungs are clear. Heart without murmur. Abdomen is obese. Modest distention identified. Bowel sounds are present soft nontender with no organomegaly. Objective Data Vital Signs Vital Signs: Vital Signs - 24 hr 04/12/21 11:02 04/12/21 11:15 04/12/21 11:30 Temperature Pulse Rate 78 75 80 Respiratory Rate 15 13 15 Blood Pressure Pulse Oximetry 04/12/21 11:45 04/12/21 12:02 04/12/21 12:15 Temperature Pulse Rate 78 76 76 Respiratory Rate 15 15 13 Blood Pressure Pulse Oximetry 04/12/21 14:35 04/12/21 14:39 04/12/21 14:45 Temperature Pulse Rate 74 72 75 Respiratory Rate 14 12 19 Blood Pressure 169/71 H Pulse Oximetry 100 04/12/21 15:00 04/12/21 22:00 04/13/21 00:21 Temperature 97.8 F Pulse Rate 77 73 Respiratory Rate 13 18 Blood Pressure 156/73 H Pulse Oximetry 100 98 95 04/13/21 05:59 Temperature 98.2 F Pulse Rate 63 Respiratory Rate 18 Blood Pressure 127/60 Pulse Oximetry 97 Intake/Output Intake/Output: Intake & Output 04/10/21 04/11/21 04/12/21 04/13/21 23:59 23:59 23:59 23:59 Intake Total 1050 3940 1350 Balance 1050 3940 1350 Meds/Results Medications: Active Medications Generic Name Dose Route Start Last Admin Trade Name Freq PRN Reason Stop Dose Admin Dextrose 12.5 gm 04/12/21 04:52 Dextrose 50% 25 Gm/50 Ml Syringe IV PUSH PRN PRN Hypoglycemia Protocol Glucagon 1 mg 04/12/21 04:52 Glucagon For Inj 1 Mg Vial IM PRN PRN Hypoglycem
[2021-04-13 09:33] LABS: Glucose Point of Care 121 mg/dl (65-105)
[2021-04-13 10:00] VITALS: O2SAT 97
[2021-04-13] MEDS: LOSARTAN POTASSIUM 25 MG TABLET PO ×2 (11:09→18:14)
[2021-04-13] MEDS: PEG (High)/E-LYTE SOLN 4,000 ML BTL 4000 ML PO (11:12)
--- NOTE | 2021-04-13 11:54 | PM.PNGS ---
Progress Note: A&P Assessment and Plan (1) Cholelithiasis without cholecystitis: Onset Date: Unknown Code(s): K80.20 - Calculus of gallbladder without cholecystitis without obstruction Status: Acute Assessment and Plan: Today's HIDA scan shows that there is no acute cholecystitis. Gallbladder did fill. Also there was a much better than average ejection fraction on that portion of the study. I have discussed this with Dr. Maciel Rodriguez regarding that I doubt that his gallbladder caused the infectious signs that he experienced such as fever, lactic acid elevation, and elevated white count. the only possibility I can think of his there is some possibility that he passed a small stone that got stuck temporarily in the common bile duct, but this study also shows that the bile duct drains. So I think this is unlikely. Also the patient did not experience any pain suggestive of that type of an incident. depending on the findings his colonoscopy I believe this patient is probably best served for surgery either for just his gallbladder at some point or to combine a resection for his bowel and gallbladder at the same time at a tertiary care center where a team can follow his gross is surrounding the time of surgery and ideal eyes him for intra-abdominal surgery in view of his thrombocytopenia, signs of cirrhosis and elevated clotting factors. I have also discussed this with Dr. Mendosa he has a hepatobiliary surgeon in mind at [facility] if the patient wishes to go there. I did mention this to the patient and his daughter today. For now I will sign off the patient's case but check back to see what the findings of colonoscopy are. Please call if you need further assistance from General surgery. (2) Diverticulosis: Code(s): K57.90 - Diverticulosis of intestine, part unspecified, without perforation or abscess without bleeding Status: Chronic Assessment and Plan: known from previous colonoscopy. (3) Colonic mass: Code(s): K63.89 - Other specified diseases of intestine Status: Acute Assessment and Plan: This is suspected on recent CT scan of the abdomen and pelvis. From the report sounds as if this is most likely near the site of his previous ileocolic anastomosis. If surgical intervention is needed would suggest patient consider having surgery at a tertiary care center where a team approach be used in view of his significant cirrhosis. He is at increased risk for complications at the time of any intra-abdominal surgery. (4) Kidney mass: Code(s): N28.89 - Other specified disorders of kidney and ureter Status: Acute Assessment and Plan: See CT report. recommend urologic evaluation as an outpatient. (5) Alcohol abuse: Code(s): F10.10 - Alcohol abuse, uncomplicated Status: Acute Assessment and Plan: Further discussion with patient well POA daughter is present reveals that over the last 3 years patient has really cut back on his alcoholic intake. Typically limits o'clock intake now to 2-3 beers every Saturday. (6) Cirrhosis: Code(s): K74.60 - Unspecified cirrhosis of liver Status: Acute Assessment and Plan: Seen on CT but all parameters slightly improving with bilirubin down, sodium serum pretty normal and no history of bleeding from their sees seen. Does have thrombocytopenia and splenomegaly. (7) DM type 2 causing CKD stage 3: Code(s): E11.22 - Type 2 diabetes mellitus with diabetic chronic kidney disease; N18.3 - Chronic kidney disease, stage 3 (moderate) Status: Acute Assessment and Plan: As per primary service. (8) Thrombocytopenia: Code(s): D69.6 - Thrombocytopenia, unspecified Status: Acute Assessment and Plan: Most likely related to his splenomegaly secondary to cirrhosis. (9) Macrocytic anemia: Code(s): D53.9 - Nutritional anemia, unspecified Status: Acute
[2021-04-13 12:25] LABS: Glucose Point of Care 127 mg/dl (65-105)
--- NOTE | 2021-04-13 13:25 | PM.IMPN ---
Progress Note: A&P Assessment and Plan (1) Sepsis: Code(s): A41.9 - Sepsis, unspecified organism Status: Acute (2) Kidney mass: Code(s): N28.89 - Other specified disorders of kidney and ureter Status: Acute (3) Colonic mass: Code(s): K63.89 - Other specified diseases of intestine Status: Acute (4) Cirrhosis: Code(s): K74.60 - Unspecified cirrhosis of liver Status: Acute (5) Thrombocytopenia: Code(s): D69.6 - Thrombocytopenia, unspecified Status: Acute (6) Chronic kidney disease, stage 3a: Code(s): N18.31 - Chronic kidney disease, stage 3a Status: Deleted (7) Type 2 diabetes mellitus with diabetic chronic kidney disease: Code(s): E11.22 - Type 2 diabetes mellitus with diabetic chronic kidney disease Status: Acute (8) History of colon cancer: Code(s): Z85.038 - Personal history of other malignant neoplasm of large intestine Status: Acute (9) Portal hypertension: Code(s): K76.6 - Portal hypertension Status: Acute (10) Benign reactive hypertension: Code(s): I10 - Essential (primary) hypertension Status: Acute (11) Alcohol dependence, in remission: Code(s): F10.21 - Alcohol dependence, in remission Status: Deleted Additional Plan Patient presents with complaints of fever and found to have sepsis present on admission (fever, leukocytosis and lactic acidosis). Etiology unclear but concern for acute cholecystitis. UA noted but no UCx obtained. BCx pending. CXR clear. UTD on vaccines. Influenza negative. Agree with HIDA scan. WBC better. Fever curve better. Continue IV abx. General surgery consulted and appreciate their input. CT scan also showing colonic mass at the anastomotic site. CEA elevated to 4.2. GI consulted with plans for colonoscopy in the morning. The renal mass notes and blood in the urine. Consider RCC. Will need to follow up with urology after discharge once the acute process improved. He has a hx of colon cancer and oncology also consulted and appreciate their input. A1c 7.4. Continue sliding scale. He will be NPO after MN. Review home medications and resume. Continue to monitor. 16: No fevers overnight. White count is normal. CRP still elevated at 8.9. Renal function stable with mild metabolic acidosis but has been noted in the past. hgb dropped to 10 now from 11.6. Plt count low but stable. Feels well. No source for the fevers. BCx NGTD. CXR clear. HIDA with GB EF 81% making acute cholecystitis less likely. Remains on Zosyn. Stop IV fluids. Repeat CXR in the morning. Subjective Date/time seen: 04/13/21 13:25 Interval history: 80yo male with cirrhosis and hx of colon cancer here for fevers. No CP. No fever or cough. No sore throat or other complaints. Toelrating bowel prep. Exam Narrative: AF 98.2 127/60 63 18 97% RA Gen - NARD Chest - mild bibasilar inspiratory rhonchi CV - RRR S1/S2 Abd - Soft, obese, NT Ext - trace pedal edema Psych - Nml mood and affect Skin - mild diffuse dry papular and crusted rash Objective Data Vital Signs Vital Signs: Vital Signs - 24 hr 04/12/21 14:35 04/12/21 14:39 04/12/21 14:45 Temperature Pulse Rate 74 72 75 Respiratory Rate 14 12 19 Blood Pressure 169/71 H Pulse Oximetry 100 04/12/21 15:00 04/12/21 22:00 04/13/21 00:21 Temperature 97.8 F Pulse Rate 77 73 Respiratory Rate 13 18 Blood Pressure 156/73 H Pulse Oximetry 100 98 95 04/13/21 05:59 04/13/21 10:00 Temperature 98.2 F Pulse Rate 63 Respiratory Rate 18 Blood Pressure 127/60 Pulse Oximetry 97 97 Intake/Output Intake/Output: Intake & Output 04/10/21 04/11/21 04/12/21 04/13/21 23:59 23:59 23:59 23:59 Intake Total 1050 3940 2350 Balance 1050 3940 2350 Meds/Results Medications: Active Medications Generic Name Dose Route Start Last Admin Trade Name Freq PRN Reason Stop Dose Admin Dextrose 12.5 gm 04/12/21
[2021-04-13 14:00] VITALS: BP 151/78; PULSE 75; RESP 18; TEMP 36.4; O2SAT 95
[2021-04-13 17:15] LABS: Glucose Point of Care 120 mg/dl (65-105)
[2021-04-13 20:24] LABS: Glucose Point of Care 195 mg/dl (65-105)
[2021-04-13 22:00] VITALS: BP 158/65; PULSE 75; RESP 18; TEMP 36.9; O2SAT 99
[2021-04-14 05:52] VITALS: BP 135/58; PULSE 71; RESP 20; TEMP 36.9; O2SAT 98
[2021-04-14 06:54] LABS: Basophils Percent Auto 0.6 % (0.2-1.2); Eosinophils Absolute Auto 0.3 K/mm3 (0-0.3); Eosinophils Percent Auto 6.8 % (0-4.4); Hematocrit 30.9 % (42.0-52.0); Hemoglobin 10.5 g/dL (14.0-18.0); Immature Granulocyte Absolute 0.02 K/mm3 (0.00-0.031); Immature Granulocyte Percent A 0.4 % (0-0.5); Lymphocytes Absolute Auto 0.88 K/mm3 (0.9-3.2); Lymphocytes Percent Auto 17.5 % (18.3-44.2); Mean Corpuscular Hemoglobin 38.6 pg (26-34); Mean Corpuscular Volume 113.6 fl (80-100); Mean Platelet Volume 10.3 fl (7.4-10.4); Monocytes Absolute Auto 0.7 K/mm3 (0.1-0.6); Monocytes Percent Auto 13.1 % (2.6-8.5); Neutrophils Absolute Auto 3.1 K/mm3 (1.3-6.7); Neutrophils Percent Auto 61.6 % (45.5-73.1); Platelet Count Result 86 k/mm3 (150-375); Red Blood Count 2.72 M/mm3 (4.6-6.20); Red Cell Distribution Width 13.6 % (11.5-14.5)
[2021-04-14 07:14] LABS: Albumin Level 3.1 g/dL (3.5-5.1); Anion Gap 4 mmol/L (8-16); Blood Urea Nitrogen 13 mg/dL (9-20); CRP 4.6 mg/dL (<1.0); Calcium 7.8 mg/dL (8.4-10.2); Carbon Dioxide 23 mmol/L (22-30); Chloride 106 mmol/L (98-107); Estimated CRCL calculation 45 ml/min; Estimated Glomerular Filt Rate 49; Glucose 112 mg/dL (65-110); Magnesium 1.8 mg/dL (1.6-2.3); Phosphorus 2.9 mg/dL (2.5-4.5); Sodium 133 mmol/L (137-145)
[2021-04-14 08:11] LABS: Glucose Point of Care 122 mg/dl (65-105)
[2021-04-14 12:16] LABS: Glucose Point of Care 114 mg/dl (65-105)
[2021-04-14 12:30] VITALS: BP 171/66; PULSE 76; RESP 18; TEMP 36.6; O2SAT 98
--- NOTE | 2021-04-14 12:30 | PC.NURSE ---
To GI Lab per wheelchair at 1230 with an IV 22 right hand present and is saline locked. Denies pain or discomfort.
--- NOTE | 2021-04-14 13:00 | WPDANESEPPF ---
Anes - Initial Pre Proc Eval Procedure: Operation Date: 04/14/21 13:30 Proposed Procedures p Colonoscopy - Ye aSnz MD Date/Time: 04/14/21 13:00 Surgeon: Darwin Anthony MD Pre Op Diagnosis: Fever Patient Data Age: 80 Gender: M Height: 1.75 m Weight: 112.7 kg Last Vital Signs Temp 36.9 C 04/14/21 05:52 Pulse 71 04/14/21 05:52 Resp 20 04/14/21 05:52 BP 135/58 L 04/14/21 05:52 Pulse Ox 98 04/14/21 05:52 Allergies Allergy/AdvReac Type Severity Reaction Status Date / Time EUGENE Inhibitors Allergy Intermediate cough Verified 04/14/21 13:02 shellfish derived Allergy Mild Itching Verified 04/14/21 13:02 AND RASH Home Medications Medication Instructions Recorded Confirmed Type lancets 33 gauge #100 ea 08/23/20 04/12/21 Rx blood sugar diagnostic #300 ea 08/25/20 04/12/21 Rx blood sugar diagnostic #300 ea 09/06/20 04/12/21 Rx losartan 25 mg tablet 25 mg PO BID #180 tablet 11/23/20 04/12/21 Rx metformin 1,000 mg tablet 1,000 mg PO BID #180 tablet 11/23/20 04/12/21 Rx aspirin 81 mg tablet,delayed 81 mg PO DAILY 01/04/21 04/12/21 History release Laboratory Tests 04/13/21 04/13/21 04/14/21 17:07 20:12 05:52 WBC 5.0 K/mm3 K/mm3 (4.5-10.0) RBC 2.72 M/mm3 L M/mm3 (4.6-6.20) Hgb 10.5 g/dL L g/dL (14.0-18.0) Hct 30.9 % L % (42.0-52.0) MCV 113.6 fl H fl (80-100) MCH 38.6 pg H pg (26-34) MCHC 34.0 g/dl g/dl (32-36) RDW 13.6 % % (11.5-14.5) Plt Count 86 k/mm3 L k/mm3 (150-375) MPV 10.3 fl fl (7.4-10.4) Immature Gran % (Auto) 0.4 % % (0-0.5) Neut % (Auto) 61.6 % % (45.5-73.1) Lymph % (Auto) 17.5 % L % (18.3-44.2) Banks % (Auto) 13.1 % H % (2.6-8.5) Eos % (Auto) 6.8 % H % (0-4.4) Baso % (Auto) 0.6 % % (0.2-1.2) Lymph # (Auto) 0.88 K/mm3 L K/mm3 (0.9-3.2) Banks # (Auto) 0.7 K/mm3 H K/mm3 (0.1-0.6) Eos # (Auto) 0.3 K/mm3 K/mm3 (0-0.3) Baso # (Auto) 0.0 K/mm3 K/mm3 (0.0-0.1) Abs Immat Gran (auto) 0.02 K/mm3 K/mm3 (0.00-0.031) Absolute Neuts (auto) 3.1 K/mm3 K/mm3 (1.3-6.7) Absolute Nucleated RBC 0.0 K/mm3 K/mm3 (0.0-0.012) Nucleated RBC % 0.0 % % (0.0-0.2) Sodium Potassium Chloride Carbon Dioxide Anion Gap BUN Creatinine Estim Creat Clear Calc Estimated GFR Glucose POC Capillary Glucose 120 mg/dl H mg/dl 195 mg/dl H mg/dl (65-105) (65-105) Calcium Phosphorus Magnesium C-Reactive Protein Albumin 04/14/21 04/14/21 04/14/21 05:52 08:08 11:45 WBC RBC Hgb Hct MCV MCH MCHC RDW Plt Count MPV Immature Gran % (Auto) Neut % (Auto) Lymph % (Auto) Banks % (Auto) Eos % (Auto) Baso % (Auto) Lymph # (Auto) Banks # (Auto) Eos # (Auto) Baso # (Auto) Abs Immat Gran (auto) Absolute Neuts (auto) Absolute Nucleated RBC Nucleated RBC % Sodium 133 mmol/L L mmol/L (137-145) Potassium 4.0 mmol/L mmol/L (3.4-5.0) Chloride 106 mmol/L mmol/L (98-107) Carbon Dioxide 23 mmol/L mmol/L (22-30) Anion Gap 4 mmol/L L mmol/L (8-16) BUN 13 mg/dL mg/dL (9-20) Creatinine 1.40 mg/dL H mg/dL (0.7-1.3) Estim Creat Clear Calc 45 ml/min ml/min Estimated GFR 49 L (59 - ) Glucose 112 mg/dL H mg/dL (65-110) POC Capillary Glucose 122 mg/dl H
[2021-04-14] MEDS: LACTATED RINGERS 1,000 ML 150 ML IV CONT (13:08)
[2021-04-14 14:00] VITALS: BP 166/79; PULSE 73; RESP 19; TEMP 36.1; O2SAT 100
--- NOTE | 2021-04-14 14:12 | PM.IMPN ---
Progress Note: A&P Assessment and Plan (1) Sepsis: Code(s): A41.9 - Sepsis, unspecified organism Status: Acute (2) Kidney mass: Code(s): N28.89 - Other specified disorders of kidney and ureter Status: Acute (3) Colonic mass: Code(s): K63.89 - Other specified diseases of intestine Status: Acute (4) Cirrhosis: Code(s): K74.60 - Unspecified cirrhosis of liver Status: Acute (5) Thrombocytopenia: Code(s): D69.6 - Thrombocytopenia, unspecified Status: Acute (6) Chronic kidney disease, stage 3a: Code(s): N18.31 - Chronic kidney disease, stage 3a Status: Deleted (7) Type 2 diabetes mellitus with diabetic chronic kidney disease: Code(s): E11.22 - Type 2 diabetes mellitus with diabetic chronic kidney disease Status: Acute (8) History of colon cancer: Code(s): Z85.038 - Personal history of other malignant neoplasm of large intestine Status: Acute (9) Portal hypertension: Code(s): K76.6 - Portal hypertension Status: Acute (10) Benign reactive hypertension: Code(s): I10 - Essential (primary) hypertension Status: Acute (11) Alcohol dependence, in remission: Code(s): F10.21 - Alcohol dependence, in remission Status: Deleted Additional Plan Patient presents with complaints of fever and found to have sepsis present on admission (fever, leukocytosis and lactic acidosis). Etiology unclear but concern for acute cholecystitis. UA noted but no UCx obtained. BCx pending. CXR clear. UTD on vaccines. Influenza negative. Agree with HIDA scan. WBC better. Fever curve better. Continue IV abx. General surgery consulted and appreciate their input. CT scan also showing colonic mass at the anastomotic site. CEA elevated to 4.2. GI consulted with plans for colonoscopy in the morning. The renal mass notes and blood in the urine. Consider RCC. Will need to follow up with urology after discharge once the acute process improved. He has a hx of colon cancer and oncology also consulted and appreciate their input. A1c 7.4. Continue sliding scale. He will be NPO after MN. Review home medications and resume. Continue to monitor. 16: No fevers overnight. White count is normal. CRP still elevated at 8.9. Renal function stable with mild metabolic acidosis but has been noted in the past. hgb dropped to 10 now from 11.6. Plt count low but stable. Feels well. No source for the fevers. BCx NGTD. CXR clear. HIDA with GB EF 81% making acute cholecystitis less likely. Remains on Zosyn. Stop IV fluids. Repeat CXR in the morning. 04/14: CXR reviewed showing mild diffuse lung disease. Consider PNA or edema. WBC remaining normal and CRP trending downward. COVID PCR was negative. Cr up slightly but will follow. Currently on Zosyn. Platelet count low but stable. Remains on room air. Home on Augmentin when okay with others. Subjective Date/time seen: 04/14/21 14:12 Interval history: 80yo male with cirrhosis and hx of colon cancer here for fevers. No problems overnight. No CP or SOB. Slight cough that is nonproductive. Walking tothe bathroom and out in the halls. Exam Narrative: AF 97.8 171/66 76 18 98% RA Gen - NARD Chest - few basilar rhonchi CV - RRR Abd - soft, NT/ND Ext - trace pedal edema Psych - nml mood and affect Skin - warm and dry, difuse resolving rash noted Objective Data Vital Signs Vital Signs: Vital Signs - 24 hr 04/13/21 22:00 04/14/21 05:52 04/14/21 12:30 Temperature 98.5 F 98.5 F 97.8 F Pulse Rate 75 71 76 Respiratory Rate 18 20 18 Blood Pressure 158/65 H 135/58 L 171/66 H Pulse Oximetry 99 98 98 Intake/Output Intake/Output: Intake & Output 04/11/21 04/12/21 04/13/21 04/14/21 23:59 23:59 23:59 23:59 Intake Total 1050 3940 5620 100 Output Total 300 Balance 1050 3940 5620 -200 Meds/Results Medications: Active Medications Generic Name Dose Route Start Last Admin Tr
[2021-04-14 14:13] VITALS: BP 118/67; PULSE 67; RESP 13; O2SAT 97
[2021-04-14 14:23] VITALS: BP 133/70; PULSE 65; RESP 23; O2SAT 98
[2021-04-14 14:33] VITALS: BP 153/71; PULSE 71; RESP 18; O2SAT 94
[2021-04-14] MEDS: LOSARTAN POTASSIUM 25 MG TABLET PO ×2 (15:26→18:21)
--- NOTE | 2021-04-14 16:37 | PM.DS ---
DS: Admitting Diagnosis Discharge Date 04/14/21 Admitting Diagnosis Chills DS: Discharge Diagnosis Discharge Diagnosis (1) SIRS (systemic inflammatory response syndrome): Code(s): R65.10 - Systemic inflammatory response syndrome (SIRS) of non-infectious origin without acute organ dysfunction Status: Acute (2) Cholelithiasis without cholecystitis: Onset Date: Unknown Code(s): K80.20 - Calculus of gallbladder without cholecystitis without obstruction Status: Acute (3) Kidney mass: Code(s): N28.89 - Other specified disorders of kidney and ureter Status: Acute (4) Colonic mass: Code(s): K63.89 - Other specified diseases of intestine Status: Acute (5) Cirrhosis: Code(s): K74.60 - Unspecified cirrhosis of liver Status: Acute (6) Thrombocytopenia: Code(s): D69.6 - Thrombocytopenia, unspecified Status: Acute (7) Chronic kidney disease, stage 3a: Code(s): N18.31 - Chronic kidney disease, stage 3a Status: Deleted (8) Type 2 diabetes mellitus with diabetic chronic kidney disease: Code(s): E11.22 - Type 2 diabetes mellitus with diabetic chronic kidney disease Status: Acute (9) History of colon cancer: Code(s): Z85.038 - Personal history of other malignant neoplasm of large intestine Status: Acute (10) Portal hypertension: Code(s): K76.6 - Portal hypertension Status: Acute (11) Benign reactive hypertension: Code(s): I10 - Essential (primary) hypertension Status: Acute (12) Alcohol dependence, in remission: Code(s): F10.21 - Alcohol dependence, in remission Status: Deleted DS: Summary Hospital Course Reason for hospitalization: 80yo male with cirrhosis and hx of colon cancer here for chills. Please see H&P details. Hospital Course: Patient presents with complaints of chills and found to have sepsis present on admission (low-grade fever, leukocytosis and lactic acidosis). Chest x-ray was clear. CT of the abdomen and pelvis showed clear lung bases, cholelithiasis gallbladder wall thickening pericholecystic fluid, 3 cm right renal mass approximate clonic mass at the surgical anastomosis. Incidental finding of cirrhosis of liver with evidence of portal hypertension and splenomegaly. He has a history of alcohol abuse. Small amount of ascites noted. He has some cytopenia which is chronic. White count was 87087. Blood cultures collected. UA noted and UCx pending. We did repeat chest x-ray which shows mild diffuse lung disease consistent with pneumonia versus pulmonary edema possibly edema related to the IV fluids. He never required supplemental O2. He is UTD on vaccines. Influenza was negative. HIDA scan was performed which showed gallbladder EF 81%. Was felt acute cholecystitis is less likely. He was started on Zosyn on admission. Patient was seen by General surgery and appreciate their input. Patient also seen by GI and patient underwent colonoscopy on 04/14/2021. He had multiple polyps that were removed. He had internal hemorrhoids. At the ileocolonic anastomosis, there was no obvious masses near this area. Patient's white count normalized. No further low-grade fevers or chills; suspec he had a viral illness. CEA was elevated to 4.2. The renal mass noted and blood in the urine. Consider RCC. Will need to follow up with urology after discharge. He has a hx of colon cancer and oncology also consulted and appreciate their input. Plan to follow up Oncology after discharge. He has diabetes and his A1c 7.4. He was treated with sliding scale and hypoglycemia protocol was available as needed. He overall did well as a been discharged home on 04/14/2021. Status at Discharge Cognitive/behavioral status at discharge: Stable Time Spent with Patient Time attestation: Total time spent providing and/or coordinating discharge services: 38 minutes Exam Narrative: AF 97.8
--- NOTE | 2021-04-14 18:17 | PC.NURSE ---
Dr Martinez made aware that hospitalist is discharging patient home. No follow up with surgery needed. If it is needed, Dr. Valencia will call them on Saturday to schedule.
[2021-04-17 07:01] LABS: Glucose Point of Care 102 mg/dl (65-105)
--- NOTE | 2021-05-04 08:00 | PC.NURSE ---
Pathology report faxed to Dr. Hoover.
== END 2021-04-14 19:00 | disposition home or self-care (01) ==
LOC: ANHED 23:20 → ANH3MEDSUR 04-12 14:03
PROVIDERS: Emergency Medicine; Internal Medicine Gastroenterology; Surgery; Admitting Provider Internal Medicine; Emergency Provider Emergency Medicine; PCP Family Medicine; Visit Provider Internal Medicine
PROC: 0DJD8ZZ Inspection of Lower Intestinal Tract, Via Natural or Artificial Opening Endoscopic (ICD-10-PCS; CPT 45378; principal; 2021-04-14 13:30)
DX: A41.9 Sepsis, unspecified organism (principal); R65.10 Systemic inflammatory response syndrome (SIRS) of non-infectious origin without acute organ dysfunction; K80.20 Calculus of gallbladder without cholecystitis without obstruction; N28.89 Other specified disorders of kidney and ureter; K63.89 Other specified diseases of intestine; D13.39 Benign neoplasm of other parts of small intestine; D12.4 Benign neoplasm of descending colon; D12.5 Benign neoplasm of sigmoid colon; I12.9 Hypertensive chronic kidney disease with stage 1 through stage 4 chronic kidney disease, or unspecified chronic kidney disease; E11.22 Type 2 diabetes mellitus with diabetic chronic kidney disease; F10.10 Alcohol abuse, uncomplicated; K76.6 Portal hypertension; K64.8 Other hemorrhoids; K74.60 Unspecified cirrhosis of liver; D69.6 Thrombocytopenia, unspecified; N18.30 Chronic kidney disease, stage 3 unspecified; R16.1 Splenomegaly, not elsewhere classified; D75.9 Disease of blood and blood-forming organs, unspecified; R91.8 Other nonspecific abnormal finding of lung field; Z85.038 Personal history of other malignant neoplasm of large intestine; Z90.49 Acquired absence of other specified parts of digestive tract; Z20.822 Contact with and (suspected) exposure to COVID-19; Z79.84 Long term (current) use of oral hypoglycemic drugs
CPT/HCPCS: 45385; 36415; 71045; 74177; 78227; 80053; 80069; 81001; 82378; 82948; 83036; 83605; 83735; 84100; 85025; 85055; 85610; 85730; 86140; 87040; 87086; 87426; 87804; 88305; 96361; 96365; 96366; 96367; 96372; 97161; 97165; 99285; A9270; A9537; C9803; G0378; J0696; J1650; J1815; J2543; J2704; J2805; J7030; J7120; Q9967; U0003; U0005

== ENCOUNTER 2021-07-12 09:25 | Outpatient (CLI) | payer OTHER, SELFPAY ==
--- NOTE | ~2021-07-12 | CT_ITS ---
EXAMINATION: CT abdomen pelvis wo/w con DATE: 07/12/2021 10:05 INDICATION: Renal mass TECHNIQUE: Computed tomography (CT) of the abdomen and pelvis was performed without and subsequently with 100 CC Omnipaque 350 intravenous contrast. Automated exposure control and iterative reconstructi on technique were employed. Exam dose: 2279.07 mGy-cm total exam DLP. COMPARISON: 04/11/2021 and 09/03/2016 CT abdomen pelvis examinations FINDINGS: Heart size is within normal range. No pericardial or pleural effusion. There is minimal neli ateral dependent lower lobe atelectasis and/or scarring. There is surface nodularity of the liver consistent with cirrhosis. The spleen measures 15 cm height, consistent with mild splenomegaly. No hepatic, splenic, and adrenal or renal space-occupying mass lesion is evident. No pancreatic calci fication or ductal dilatation. Small gallstones are noted. No gallbladder wall thickening or pericholecystic fluid or fat stranding. Circumscribed approximately 3 cm x 2.2 cm probable right hemorrhagic cyst; this measured 2.7 x 2.1 cm on 09/03/2016 but is unchanged in size since 04/11/2021. Adjacent stable 7 mm cyst. Stable of millimeter cyst at the inferior tip of the left kidney. There are a couple of stable left renal cysts measuring up to 1 cm. There is atherosclerotic calcification of the abdominal aorta, iliac and femoral arteries. No intrape ritoneal or retroperitoneal or pelvic mass lesion or adenopathy or ascites. Moderate prostate enlargement. Moderate diffuse thickening of the urinary bladder wall, likely due to the prostatomegaly. Status post right partial colectomy. There is diverticulosis of left and right colon; no CT evidence of diverticulitis. No bowel obstruction or intraperitoneal free air. There are couple of supraumbilical fat-containing ventral abdominal wall hernias near midline. Diffuse idiopathic skeletal hyperostosis of the thoracic and lumbar spine. No suspicious osteolytic o r osteoblastic lesions are noted. Bilateral hip osteoarthritis. IMPRESSION: Cirrhosis, mild splenomegaly, portal hypertension Cholelithiasis Status post right partial colectomy Diverticulosis of colon; no CT evidence of diverticulitis Stable bilateral renal probable cysts including up to 2.2 x 3 cm right probable hemorrhagic renal cys t Prostatomegaly, likely responsible for moderate diffuse thickening of the urinary bladder wall Supraumbilical fat-containing abdominal wall hernias. Small fat-containing right inguinal hernia. Reviewed, dictated and finalized at [facility]. Reviewed, dictated and finalized at location A. IMPRESSION: Cirrhosis, mild splenomegaly, portal hypertension Cholelithiasis Status post right partial colectomy Diverticulosis of colon; no CT evidence of diverticulitis Stable bilateral renal probable cysts including up to 2.2 x 3 cm right probable hemorrhagic renal cyst Prostatomegaly, likely responsible for moderate diffuse thickening of the urina ry bladder wall Supraumbilical fat-containing abdominal wall hernias. Small fat-containing right inguinal hernia.
[2021-07-12 09:53] LABS: Estimated Glomerular Filt Rate 53
== END 2021-07-12 09:26 | disposition home or self-care (01) ==
LOC: ANHIMG 09:28
PROVIDERS: PCP Family Medicine; Visit Provider Urology
DX: N28.89 Other specified disorders of kidney and ureter (principal); K74.69 Other cirrhosis of liver; K80.20 Calculus of gallbladder without cholecystitis without obstruction; K57.30 Diverticulosis of large intestine without perforation or abscess without bleeding; K40.90 Unilateral inguinal hernia, without obstruction or gangrene, not specified as recurrent; K44.9 Diaphragmatic hernia without obstruction or gangrene; N40.0 Benign prostatic hyperplasia without lower urinary tract symptoms
CPT/HCPCS: 74178; Q9967

== ENCOUNTER 2021-11-03 09:04 | Outpatient (CLI) | payer OTHER, SELFPAY ==
[2021-11-03 09:23] LABS: Basophils Percent Auto 0.5 % (0.2-1.2); Eosinophils Absolute Auto 0.3 K/mm3 (0-0.3); Eosinophils Percent Auto 6.7 % (0-4.4); Hematocrit 33.6 % (42.0-52.0); Hemoglobin 11.4 g/dL (14.0-18.0); Immature Granulocyte Absolute 0.01 K/mm3 (0.00-0.031); Immature Granulocyte Percent A 0.3 % (0-0.5); Lymphocytes Absolute Auto 0.84 K/mm3 (0.9-3.2); Lymphocytes Percent Auto 21.6 % (18.3-44.2); Mean Corpuscular HGB Conc 33.9 g/dl (32-36); Mean Corpuscular Hemoglobin 37.6 pg (26-34); Mean Corpuscular Volume 110.9 fl (80-100); Mean Platelet Volume 9.5 fl (7.4-10.4); Monocytes Absolute Auto 0.4 K/mm3 (0.1-0.6); Monocytes Percent Auto 11.1 % (2.6-8.5); Neutrophils Absolute Auto 2.3 K/mm3 (1.3-6.7); Neutrophils Percent Auto 59.8 % (45.5-73.1); Platelet Count Result 83 k/mm3 (150-375); Red Blood Count 3.03 M/mm3 (4.6-6.20); Red Cell Distribution Width 12.2 % (11.5-14.5); White Blood Count 3.9 K/mm3 (4.5-10.0)
[2021-11-03 16:50] LABS: Alanine Aminotransferase 34 U/L (6-50); Albumin Level 3.4 g/dL (3.5-5.1); Alkaline Phosphatase 70 U/L (38-126); Anion Gap 7 mmol/L (8-16); Aspartate Amino Transferase 43 U/L (17-59); Bilirubin,Total 1.4 mg/dL (0.2-1.3); Blood Urea Nitrogen 16 mg/dL (9-20); Calcium 8.6 mg/dL (8.4-10.2); Carbon Dioxide 25 mmol/L (22-30); Chloride 105 mmol/L (98-107); Estimated Glomerular Filt Rate 53; Glucose 305 mg/dL (65-110); Potassium 4.6 mmol/L (3.4-5.0); Sodium 137 mmol/L (137-145)
[2021-11-03 17:16] LABS: Carcinoembryonic Antigen 3.4 ng/mL (0.0-3.0)
== END 2021-11-03 09:05 | disposition home or self-care (01) ==
LOC: ANHLAB 09:06
PROVIDERS: PCP Family Medicine; Visit Provider Internal Medicine Hematology & Oncology
DX: D69.6 Thrombocytopenia, unspecified (principal); C18.9 Malignant neoplasm of colon, unspecified
CPT/HCPCS: 36415; 80053; 82378; 85025

== ENCOUNTER 2022-05-14 09:04 | Outpatient (CLI) | payer OTHER, SELFPAY ==
[2022-05-14 09:22] LABS: Basophils Percent Auto 1.3 % (0.2-1.2); Eosinophils Absolute Auto 0.3 K/mm3 (0-0.3); Eosinophils Percent Auto 7.8 % (0-4.4); Hematocrit 34.2 % (42.0-52.0); Hemoglobin 11.5 g/dL (14.0-18.0); Immature Granulocyte Absolute 0.01 K/mm3 (0.00-0.031); Immature Granulocyte Percent A 0.3 % (0-0.5); Lymphocytes Absolute Auto 0.87 K/mm3 (0.9-3.2); Lymphocytes Percent Auto 27.3 % (18.3-44.2); Mean Corpuscular HGB Conc 33.6 g/dl (32-36); Mean Corpuscular Volume 112.9 fl (80-100); Mean Platelet Volume 9.1 fl (7.4-10.4); Monocytes Absolute Auto 0.3 K/mm3 (0.1-0.6); Monocytes Percent Auto 10.7 % (2.6-8.5); Neutrophils Absolute Auto 1.7 K/mm3 (1.3-6.7); Neutrophils Percent Auto 52.6 % (45.5-73.1); Platelet Count Result 102 k/mm3 (150-375); Red Blood Count 3.03 M/mm3 (4.6-6.20); Red Cell Distribution Width 12.3 % (11.5-14.5); White Blood Count 3.2 K/mm3 (4.5-10.0)
[2022-05-14 12:35] LABS: Iron 107 ug/dL (49-181)
[2022-05-14 12:42] LABS: Alanine Aminotransferase 38 U/L (6-50); Albumin Level 3.3 g/dL (3.5-5.1); Alkaline Phosphatase 69 U/L (38-126); Anion Gap 6 mmol/L (8-16); Aspartate Amino Transferase 48 U/L (17-59); Blood Urea Nitrogen 17 mg/dL (9-20); Calcium 8.2 mg/dL (8.4-10.2); Carbon Dioxide 24 mmol/L (22-30); Chloride 108 mmol/L (98-107); Estimated Glomerular Filt Rate 48; Glucose 238 mg/dL (65-110); Potassium 4.2 mmol/L (3.4-5.0); Sodium 138 mmol/L (137-145)
[2022-05-14 13:26] LABS: Percent Iron Saturation 46 % (20-50)
== END 2022-05-14 09:05 | disposition home or self-care (01) ==
LOC: ANHLAB 09:05
PROVIDERS: PCP Family Medicine; Visit Provider Internal Medicine Hematology & Oncology
DX: D69.6 Thrombocytopenia, unspecified (principal); E83.19 Other disorders of iron metabolism
CPT/HCPCS: 36415; 80053; 82607; 82728; 82746; 83540; 83550; 85025

== ENCOUNTER 2022-09-02 17:36 | Emergency (ER) | payer OTHER, SELFPAY ==
--- NOTE | ~2022-09-02 | XR_ITS ---
EXAMINATION: XR chest 1V portable DATE: 09/02/2022 18:33 INDICATION: Cough. TECHNIQUE: A single frontal view of the chest was obtained. COMPARISON: Chest single view 04/14/2021, CT abdomen and pelvis 07/12/2021 FINDINGS: There is mild atelectasis in left lower lung zone. No pleural effusion or pneumothorax. The heart size is normal. IMPRESSION: 1. Mild atelectasis in left lower lung zone. Reviewed, dictated and finalized at location A.
--- NOTE | 2022-09-02 17:40 | ECG_ITS ---
Measurements Intervals Shell Rate: 78 P: 28 ND: 167 QRS: -32 QRSD: 96 T: 50 QT: 381 QTc: 435 Interpretive Statements SINUS RHYTHM LEFT AXIS DEVIATION VOLTAGE CRITERIA FOR LVH MINIMAL Q WAVES- HIGH LATERAL LEADS BASELINE WANDER- V6 BORDERLINE ECG NO PREVIOUS ECG AVAILABLE FOR COMPARISON Electronically Signed On 09-02-2022 21:24:13 CDT by Cory Woods D.O.
[2022-09-02 17:43] VITALS: BP 162/65; PULSE 80; RESP 17; TEMP 36.9; O2SAT 98
--- NOTE | 2022-09-02 18:03 | PC.NURSE ---
Pt ambulates into ER from home c/o weakness. Pt returned from [place] on Saturday and states he started to feel weak. States the weakness has progress over the week. States that he feels dehydrated. States he has not been wanting to eat and has been sleeping extra. Denies any SOB, CP, n/v/d.
--- NOTE | 2022-09-02 18:37 | ED.GENADULT ---
HPI - General Adult General Chief complaint: Weakness Stated complaint: bad cold, weak, dehydrated Time Seen by Provider: 09/02/22 17:49 History of Present Illness HPI narrative: 81-year-old male presented the emergency department for evaluation of increased generalized weakness. Patient states symptoms started on Saturday have slowly been progressing. Patient states he does not feel he has been drinking enough water and suspects he is dehydrated. Patient denies any chest pain or shortness of breath. Patient denies any nausea vomiting diarrhea. Patient denies any associate abdominal pain. Patient reports he has had issues with dehydration previously. Patient did just return from a trip to [place]. Related Data Home Medications Medication Instructions Recorded Confirmed aspirin 81 mg tablet,delayed 81 mg PO DAILY 01/04/21 07/17/22 release (Adult Aspirin Regimen) empagliflozin 10 mg tablet 10 mg PO DAILY 03/05/22 07/17/22 (Jardiance) Allergies Allergy/AdvReac Type Severity Reaction Status Date / Time EUGENE Inhibitors Allergy Intermediate cough Verified 09/02/22 18:02 shellfish derived Allergy Mild Itching Verified 09/02/22 18:02 AND RASH Review of Systems Review of Systems: All systems reviewed & are unremarkable except as noted in HPI and below PMFSH Past Medical History Medical History Acute calculous cholecystitis Acute left flank pain Alcohol abuse Alcohol abuse Alcoholic cirrhosis of liver without ascites Arthritis Balanitis Benign reactive hypertension Blood glucose elevated Cholelithiasis NOS Chronic kidney disease, stage 3 (moderate) Chronic kidney disease, stage II (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 Congestive splenomegaly Cough Counseling for living will Cyst of kidney, acquired Dietary counseling and surveillance (08/28/18) DISH (diffuse idiopathic skeletal hyperostosis) DISH (diffuse idiopathic skeletal hyperostosis) Diverticulosis DM type 2 causing CKD stage 3 Elevated lactic acid level Elevated liver enzymes Encounter for other general examination Essential (primary) hypertension Fatty liver Gout, unspecified Hemochromatosis History of colon cancer 2009 s/p right hemicolectomy and chemotherapy History of colon cancer in adulthood Idiopathic chronic gout Leukocytosis (leucocytosis) Macrocytic anemia Malignant (primary) neoplasm, unspecified Mixed hyperlipidemia Neuropathy associated with cancer PMR (polymyalgia rheumatica) Pneumonia Polyneuropathy 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assified elsewhere Portal hypertension Right renal mass Rotator cuff tear arthropathy Sepsis Shoulder arthritis SIRS (systemic inflammatory response syndrome) Thrombocytopenia Ventral hernia without obstruction or gangrene Surgical History Surgical History History of colon resection 2009 Family History Family History Sibling Family history of malignant neoplasm of testis Malignant neoplasm of prostate Family history of arthritis Patient's brother is Hypertension Family history of gout Social History Social History Social History: Single Smoking status: Never smoker Second hand tobacco smoke exposure: No Alcohol intake: current Alcohol use details: Occasionally Substance use: never Substance use type: does not use Living arrangements: with family Occupation/Education: retired Gender identity (if verbalized by the patient): Male Sexual Orientation (if Verbalized by the Patient): Straight or Heterosexual Spiritual care concerns: No Exam Narrative: APPEARANCE: Well appearing, no pain, no distress, well-nourished. HEAD: normocephalic, atraumatic. EYES: PERRLA/EOMI, conjunct
[2022-09-02] MEDS: SODIUM CHLORIDE 0.9% IV 1,000 ML 999 ML IV CONT (18:42)
[2022-09-02 18:45] LABS: Basophils Absolute Auto 0.1 K/mm3 (0.0-0.1); Basophils Percent Auto 0.9 % (0.2-1.2); Eosinophils Absolute Auto 0.3 K/mm3 (0-0.3); Hematocrit 32.8 % (42.0-52.0); Immature Granulocyte Absolute 0.03 K/mm3 (0.00-0.031); Immature Granulocyte Percent A 0.5 % (0-0.5); Immature Platelet Fraction Pct 6.2 % (0.9-11.2); Lymphocytes Absolute Auto 0.74 K/mm3 (0.9-3.2); Lymphocytes Percent Auto 12.8 % (18.3-44.2); Mean Corpuscular HGB Conc 33.5 g/dl (32-36); Mean Corpuscular Hemoglobin 37.8 pg (26-34); Mean Corpuscular Volume 112.7 fl (80-100); Mean Platelet Volume 10.7 fl (7.4-10.4); Neutrophils Absolute Auto 3.6 K/mm3 (1.3-6.7); Neutrophils Percent Auto 62.8 % (45.5-73.1); Platelet Count Result 101 k/mm3 (150-375); Red Blood Count 2.91 M/mm3 (4.6-6.20); Red Cell Distribution Width 12.8 % (11.5-14.5); White Blood Count 5.8 K/mm3 (4.5-10.0)
[2022-09-02 18:54] LABS: Macrocytosis 1+ (NORMAL); Platelet Estimate Decreased (Adequate)
[2022-09-02 18:55] LABS: Schistocytes None Seen (NORMAL)
--- NOTE | 2022-09-02 18:57 | PC.NURSE ---
Pt attempted to urinate into a urinal and the lid closed causing pt to urinate onto the floor. Pt states that he has not had any issues urinating at home.
[2022-09-02 18:59] LABS: Alanine Aminotransferase 35 U/L (6-50); Albumin Level 3.3 g/dL (3.5-5.1); Alkaline Phosphatase 80 U/L (38-126); Anion Gap 6 mmol/L (8-16); Aspartate Amino Transferase 42 U/L (17-59); Bilirubin,Total 1.2 mg/dL (0.2-1.3); Blood Urea Nitrogen 24 mg/dL (9-20); Calcium 8.1 mg/dL (8.4-10.2); Carbon Dioxide 24 mmol/L (22-30); Chloride 107 mmol/L (98-107); Estimated CRCL calculation 43 ml/min; Estimated Glomerular Filt Rate 48; Glucose 153 mg/dL (65-110); Sodium 137 mmol/L (137-145)
--- NOTE | 2022-09-02 19:01 | PC.NURSE ---
Pt has hx of HTN and DM.
[2022-09-02 19:04] LABS: SARS-CoV-2 RNA PCR Negative (Negative)
[2022-09-02 19:14] VITALS: BP 152/69; PULSE 76; RESP 25; O2SAT 85
[2022-09-02 19:15] VITALS: PULSE 76; RESP 16; O2SAT 99
[2022-09-02 19:16] VITALS: BP 178/68; PULSE 76; RESP 16; O2SAT 99
[2022-09-02 20:34] LABS: Appearance Urine Clear (Clear); Bacteria Urine None Seen /hpf; Bilirubin Urine Negative (Negative); Blood Urine Negative (Negative); Color Urine Yellow (Yellow); Glucose Urine UA 3+ mg/dL (Negative); Ketones Urine Negative (Negative); Leukocyte Esterase Ur Negative LEU/UL (Negative); Need Manual Microscopic Reviewed; Nitrate Urine Positive (Negative); Non Pathogenic Casts 0-2; Protein Urine Negative (Negative); RBC Urine 0-2 /hpf (0-2); Specific Grav Ur 1.029 (1.001-1.035); Squamous Epithelial Cell Urine None seen /hpf (Few); Urobilinogen Urine >=8.0 mg/dL (<2.0)
[2022-09-02 20:35] LABS: Add Urine Microscopic? YES
[2022-09-02] MEDS: ERYTHROMYCIN OPHTH OINTMENT 1 GM TUBE 1 APPLIC LEFT EYE (20:58)
== END 2022-09-02 21:07 | disposition home or self-care (01) ==
PROVIDERS: Emergency Medicine; Emergency Provider Emergency Medicine; PCP Family Medicine
DX: R53.1 Weakness (principal); H10.9 Unspecified conjunctivitis; Z20.822 Contact with and (suspected) exposure to COVID-19; K70.30 Alcoholic cirrhosis of liver without ascites; K76.6 Portal hypertension; E11.22 Type 2 diabetes mellitus with diabetic chronic kidney disease; I12.9 Hypertensive chronic kidney disease with stage 1 through stage 4 chronic kidney disease, or unspecified chronic kidney disease; E11.42 Type 2 diabetes mellitus with diabetic polyneuropathy; N18.30 Chronic kidney disease, stage 3 unspecified; E78.2 Mixed hyperlipidemia; D53.9 Nutritional anemia, unspecified; M1A.00X0 Idiopathic chronic gout, unspecified site, without tophus (tophi); Z85.038 Personal history of other malignant neoplasm of large intestine; Z92.21 Personal history of antineoplastic chemotherapy; Z90.49 Acquired absence of other specified parts of digestive tract; Z79.4 Long term (current) use of insulin; Z79.82 Long term (current) use of aspirin; R94.31 Abnormal electrocardiogram [ECG] [EKG]
CPT/HCPCS: 36415; 71045; 80053; 81001; 85025; 85055; 87086; 87147; 87181; 87186; 93005; 96360; 96361; 99283; A9270; J7030; U0003; U0005

== ENCOUNTER 2022-11-08 11:55 | Outpatient (CLI) | payer OTHER, SELFPAY ==
[2022-11-08 12:11] LABS: Basophils Percent Auto 0.8 % (0.2-1.2); Eosinophils Absolute Auto 0.2 K/mm3 (0-0.3); Eosinophils Percent Auto 4.4 % (0-4.4); Hematocrit 34.4 % (42.0-52.0); Hemoglobin 11.3 g/dL (14.0-18.0); Immature Granulocyte Absolute 0.01 K/mm3 (0.00-0.031); Immature Granulocyte Percent A 0.3 % (0-0.5); Lymphocytes Absolute Auto 0.81 K/mm3 (0.9-3.2); Lymphocytes Percent Auto 21.1 % (18.3-44.2); Mean Corpuscular HGB Conc 32.8 g/dl (32-36); Mean Corpuscular Hemoglobin 37.8 pg (26-34); Mean Corpuscular Volume 115.1 fl (80-100); Mean Platelet Volume 10.1 fl (7.4-10.4); Monocytes Absolute Auto 0.5 K/mm3 (0.1-0.6); Monocytes Percent Auto 14.1 % (2.6-8.5); Neutrophils Absolute Auto 2.3 K/mm3 (1.3-6.7); Neutrophils Percent Auto 59.3 % (45.5-73.1); Platelet Count Result 79 k/mm3 (150-375); Red Blood Count 2.99 M/mm3 (4.6-6.20); Red Cell Distribution Width 13.4 % (11.5-14.5); White Blood Count 3.8 K/mm3 (4.5-10.0)
[2022-11-08 12:43] LABS: Iron 144 ug/dL (49-181)
[2022-11-08 12:45] LABS: Alanine Aminotransferase 32 U/L (6-50); Albumin Level 3.6 g/dL (3.5-5.1); Alkaline Phosphatase 95 U/L (38-126); Anion Gap 7 mmol/L (8-16); Aspartate Amino Transferase 47 U/L (17-59); Bilirubin,Total 1.1 mg/dL (0.2-1.3); Blood Urea Nitrogen 22 mg/dL (9-20); Calcium 8.9 mg/dL (8.4-10.2); Carbon Dioxide 24 mmol/L (22-30); Chloride 108 mmol/L (98-107); Estimated Glomerular Filt Rate 53; Glucose 144 mg/dL (65-110); Potassium 4.1 mmol/L (3.4-5.0); Sodium 139 mmol/L (137-145)
[2022-11-08 12:59] LABS: Percent Iron Saturation 58 % (20-50)
[2022-11-08 13:16] LABS: Carcinoembryonic Antigen 2.8 ng/mL (0.0-3.0)
[2022-11-08 14:48] LABS: Folic Acid 16.9 ng/mL (2.76->20)
== END 2022-11-08 11:56 | disposition home or self-care (01) ==
LOC: ANHLAB 11:56
PROVIDERS: PCP Family Medicine; Visit Provider Internal Medicine Hematology & Oncology
DX: E83.19 Other disorders of iron metabolism (principal); C18.9 Malignant neoplasm of colon, unspecified
CPT/HCPCS: 36415; 80053; 82378; 82607; 82728; 82746; 83540; 83550; 85025

== ENCOUNTER 2023-05-14 10:56 | Outpatient (CLI) | payer OTHER, SELFPAY ==
[2023-05-14 11:22] LABS: Basophils Percent Auto 0.6 % (0.2-1.2); Eosinophils Absolute Auto 0.2 K/mm3 (0-0.3); Eosinophils Percent Auto 5.3 % (0-4.4); Hematocrit 32.9 % (42.0-52.0); Hemoglobin 11.2 g/dL (14.0-18.0); Immature Granulocyte Absolute 0.02 K/mm3 (0.00-0.031); Immature Granulocyte Percent A 0.6 % (0-0.5); Immature Platelet Fraction Pct 4.1 % (0.9-11.2); Lymphocytes Absolute Auto 0.68 K/mm3 (0.9-3.2); Mean Corpuscular Hemoglobin 38.8 pg (26-34); Mean Corpuscular Volume 113.8 fl (80-100); Mean Platelet Volume 10.2 fl (7.4-10.4); Monocytes Absolute Auto 0.5 K/mm3 (0.1-0.6); Monocytes Percent Auto 15.3 % (2.6-8.5); Neutrophils Percent Auto 58.2 % (45.5-73.1); Platelet Count Result 76 k/mm3 (150-375); Red Blood Count 2.89 M/mm3 (4.6-6.20); Red Cell Distribution Width 13.5 % (11.5-14.5); White Blood Count 3.4 K/mm3 (4.5-10.0)
[2023-05-14 13:45] LABS: Iron 210 ug/dL (49-181)
[2023-05-14 13:48] LABS: Alanine Aminotransferase 34 U/L (6-50); Albumin Level 3.3 g/dL (3.5-5.1); Alkaline Phosphatase 91 U/L (38-126); Anion Gap 8 mmol/L (8-16); Aspartate Amino Transferase 54 U/L (17-59); Bilirubin,Total 1.7 mg/dL (0.2-1.3); Blood Urea Nitrogen 22 mg/dL (9-20); Calcium 8.5 mg/dL (8.4-10.2); Carbon Dioxide 25 mmol/L (22-30); Chloride 102 mmol/L (98-107); Estimated Glomerular Filt Rate > 60; Glucose 351 mg/dL (65-110); Potassium 4.2 mmol/L (3.4-5.0); Sodium 135 mmol/L (137-145)
[2023-05-14 13:57] LABS: Percent Iron Saturation 96 % (20-50)
[2023-05-14 14:17] LABS: Carcinoembryonic Antigen 3.9 ng/mL (0.0-3.0)
[2023-05-14 16:08] LABS: Folic Acid > 20.0 ng/mL (2.76->20)
== END 2023-05-14 10:57 | disposition home or self-care (01) ==
LOC: ANHLAB 10:58
PROVIDERS: PCP Family Medicine; Visit Provider Internal Medicine Hematology & Oncology
DX: C18.9 Malignant neoplasm of colon, unspecified (principal); D64.9 Anemia, unspecified
CPT/HCPCS: 36415; 80053; 82378; 82607; 82728; 82746; 83540; 83550; 85025; 85055

== ENCOUNTER 2023-06-05 01:17 | Day surgery (SDC) | payer OTHER, SELFPAY ==
[2023-06-04 12:26] VITALS: BMI 34.7
--- NOTE | ~2023-06-05 | BM_ITS ---
EXAMINATION: CCL bone marrow asp w bx diag ORDER COMPLETED DATE: 06/05/2023 09:50 INDICATION: Leukocytopenia. TECHNIQUE: A time-out was performed to verify the patient's name, date of , and procedure to b e performed. The procedure including the risks and benefits was discussed with the patient. Risks dis cussed included bleeding, infection, nerve injury and allergic reaction. The patient understood the r isks and agreed to proceed. The skin overlying the right posterior iliac spine was prepped and draped in usual sterile fashion. Anesthetic was administered with 1% lidocaine subcutaneously. Moderate co nscious sedation was achieved with 50 mcg fentanyl IV. An 11 gauge needle was inserted into the right ilium with fluoroscopic guidance. Bone marrow was aspirated. An 8 gauge needle was then inserted int o the right ilium with fluoroscopic guidance. 2 core bone marrow biopsy specimens were obtained. The needle was removed and the entry site was cleaned and dressed. There were no immediate complications . A total of 0 fluoroscopic images were recorded. Fluoroscopy exposure time was 0.1 minutes. Total DA P was 159 mGycm^2 FINDINGS: Real-time fluoroscopy demonstrates the biopsy needle tip overlying the right posterior kike c spine. IMPRESSION: 1. Successful fluoroscopic guided bone marrow aspiration. 2. Successful fluoroscopic guided bone marrow biopsy. Reviewed, dictated and finalized at location A. EQUIPMENT FIELD SERVICE TECHNICIAN
[2023-06-05 07:43] VITALS: BP 144/63; PULSE 75; RESP 18; TEMP 37.1; O2SAT 98; BMI 34.7
[2023-06-05 08:03] LABS: Basophils Percent Auto 0.8 % (0.2-1.2); Eosinophils Absolute Auto 0.3 K/mm3 (0-0.3); Eosinophils Percent Auto 6.4 % (0-4.4); Hematocrit 33.7 % (42.0-52.0); Hemoglobin 11.4 g/dL (14.0-18.0); Immature Granulocyte Absolute 0.01 K/mm3 (0.00-0.031); Immature Granulocyte Percent A 0.3 % (0-0.5); Immature Platelet Fraction Pct 12.6 % (0.9-11.2); Lymphocytes Absolute Auto 0.87 K/mm3 (0.9-3.2); Lymphocytes Percent Auto 22.2 % (18.3-44.2); Mean Corpuscular HGB Conc 33.8 g/dl (32-36); Mean Corpuscular Volume 112.3 fl (80-100); Mean Platelet Volume 11.7 fl (7.4-10.4); Monocytes Absolute Auto 0.5 K/mm3 (0.1-0.6); Neutrophils Absolute Auto 2.3 K/mm3 (1.3-6.7); Neutrophils Percent Auto 57.3 % (45.5-73.1); Platelet Count Result 55 k/mm3 (150-375); White Blood Count 3.9 K/mm3 (4.5-10.0)
[2023-06-05 08:23] LABS: INR 1.3
--- NOTE | 2023-06-05 09:12 | WPDMODSED ---
Moderate Sedation Note-Pt Data Patient Data Diagnosis: iron overload Present Complaint: iron overload Procedure to be performed/Plan: bone marrow biopsy Allergies Allergy/AdvReac Type Severity Reaction Status Date / Time EUGENE Inhibitors Allergy Intermediate cough Verified 06/05/23 07:41 shellfish derived Allergy Mild Itching Verified 06/05/23 07:41 AND RASH Home Medications Medication Instructions Recorded Confirmed Type blood sugar diagnostic (Contour #300 ea 08/25/20 01/22/23 Rx Test Strips) needle (disp) #100 ea 03/07/22 01/22/23 Rx blood sugar diagnostic (Contour #300 ea 09/27/22 01/22/23 Rx Next Test Strips) lancets (Microlet Lancet) #100 ea 12/06/22 01/22/23 Rx losartan 25 mg tablet 25 mg PO BID #180 tabs 01/10/23 06/05/23 Rx metformin 1,000 mg tablet 500 mg PO BID #90 tabs 05/16/23 06/04/23 Rx omega 3-uhd-baw-fish oil 300 1 cap PO DAILY 06/04/23 06/04/23 History mg-1,000 mg capsule (Fish Oil) vit A 7,160 unit-vit C 113 mg-vit 1 tablet PO DAILY 06/04/23 06/04/23 History E 100 kqhp-dwcm-qvqomp tablet vitamin B complex (B 1 tablet PO DAILY 06/04/23 06/04/23 History Complex-Vitamin B12 tablet) furosemide 20 mg tablet See Rx Instructions .Route 06/05/23 Rx .COMPLEX #90 tabs Sedation/Anesthesia: No previous sedation/anesthesia problems (including family history). [facility] Past Medical History Medical History Acute calculous cholecystitis Acute left flank pain Alcohol abuse Alcohol abuse Alcoholic cirrhosis of liver without ascites Arthritis Balanitis Benign reactive hypertension Blood glucose elevated Cholelithiasis NOS Chronic kidney disease, stage 3 (moderate) Chronic kidney disease, stage II (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 Congestive splenomegaly Cough Counseling for living will Cyst of kidney, acquired Dietary counseling and surveillance (08/28/18) DISH (diffuse idiopathic skeletal hyperostosis) DISH (diffuse idiopathic skeletal hyperostosis) Diverticulosis DM type 2 causing CKD stage 3 Elevated lactic acid level Elevated liver enzymes Encounter for other general examination Essential (primary) hypertension Fatty liver Gout, unspecified Hemochromatosis History of colon cancer 2009 s/p right hemicolectomy and chemotherapy History of colon cancer in adulthood Idiopathic chronic gout Leukocytosis (leucocytosis) Macrocytic anemia Malignant (primary) neoplasm, unspecified Mixed hyperlipidemia Neuropathy associated with cancer PMR (polymyalgia rheumatica) Pneumonia Polyneuropathy 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assified elsewhere Portal hypertension Right renal mass Rotator cuff tear arthropathy Sepsis Shoulder arthritis SIRS (systemic inflammatory response syndrome) Thrombocytopenia Ventral hernia without obstruction or gangrene Surgical History Surgical History History of colon resection 2009 Family History Family History Sibling Family history of malignant neoplasm of testis Malignant neoplasm of prostate Family history of arthritis Patient's brother is Hypertension Family history of gout Social History Social History Social History: Single Smoking status: Never smoker Second hand tobacco smoke exposure: No Alcohol intake: former Alcohol use details: Occasionally Substance use: never Substance use type: does not use Lack of Transportation: No Lack of Food: Never True Current Housing: I Have Housing Concerned About Future Housing: No Difficulty Paying Gas/Electric Bills: No Difficulty Paying for Meds: No Currently Unemployed: YES Education: Decline to Answer Difficulty w/ Childcare or Family Care: No Living arrangements: alone O
[2023-06-05 09:55] VITALS: BP 153/68; PULSE 66; RESP 12; TEMP 36.9; O2SAT 99
[2023-06-05 10:00] VITALS: BP 151/65; PULSE 65; RESP 14; O2SAT 98
[2023-06-05 10:15] VITALS: BP 153/72; PULSE 67; RESP 14; O2SAT 99
[2023-06-05 10:30] VITALS: BP 159/72; PULSE 65; RESP 13; O2SAT 98
[2023-06-05 10:45] VITALS: BP 163/74; PULSE 66; RESP 15; O2SAT 94
== END 2023-06-05 11:03 | disposition home or self-care (01) ==
PROVIDERS: Radiology Diagnostic Radiology; PCP Family Medicine; Referring Provider Internal Medicine Hematology & Oncology; Visit Provider Radiology Diagnostic Radiology
DX: E83.119 Hemochromatosis, unspecified (principal); D72.819 Decreased white blood cell count, unspecified; I12.9 Hypertensive chronic kidney disease with stage 1 through stage 4 chronic kidney disease, or unspecified chronic kidney disease; N18.30 Chronic kidney disease, stage 3 unspecified; E78.2 Mixed hyperlipidemia; K74.69 Other cirrhosis of liver; M48.10 Ankylosing hyperostosis [Forestier], site unspecified; K57.90 Diverticulosis of intestine, part unspecified, without perforation or abscess without bleeding; E11.8 Type 2 diabetes mellitus with unspecified complications; D53.9 Nutritional anemia, unspecified; M35.3 Polymyalgia rheumatica; R65.10 Systemic inflammatory response syndrome (SIRS) of non-infectious origin without acute organ dysfunction; D69.6 Thrombocytopenia, unspecified; Z79.84 Long term (current) use of oral hypoglycemic drugs; Z90.49 Acquired absence of other specified parts of digestive tract; Z85.038 Personal history of other malignant neoplasm of large intestine; Z80.42 Family history of malignant neoplasm of prostate; Z80.43 Family history of malignant neoplasm of testis
CPT/HCPCS: 36415; 38222; 85025; 85055; 85610; 88305; 88311; 88313; J1642; J2250; J3010; J7040

== ENCOUNTER 2023-07-04 10:31 | Outpatient (CLI) | payer OTHER, SELFPAY ==
--- NOTE | ~2023-07-04 | XR_ITS ---
EXAMINATION: XR lumbar spine min 4V DATE: 07/04/2023 10:56 INDICATION: Chronic low back pain. TECHNIQUE: 5 views of lumbar spine were obtained. COMPARISON: CT abdomen and pelvis 07/12/2021 FINDINGS: Bone alignment is normal. Vertebral body heights are normal. There are endplate osteophytes at most levels. There are bridging endplate osteophytes at multiple levels in the spine, consistent with diffuse idiopathic skeletal hyperostosis (DISH). There is multilevel facet joint osteoarthritis, severe on the left at L4-L5 and bilaterally at T12-L1 and L5-S1. IMPRESSION: 1. Mild lumbar spondylosis. 2. DISH. Reviewed, dictated and finalized at location E. H LEADER
== END 2023-07-04 10:32 | disposition home or self-care (01) ==
PROVIDERS: PCP Family Medicine; Visit Provider Family Medicine
DX: M48.16 Ankylosing hyperostosis [Forestier], lumbar region (principal); M47.896 Other spondylosis, lumbar region
CPT/HCPCS: 72110

== ENCOUNTER 2023-07-15 09:59 | Outpatient (CLI) | payer OTHER, SELFPAY ==
[2023-07-15 10:24] LABS: Eosinophils Absolute Auto 0.2 K/mm3 (0-0.3); Eosinophils Percent Auto 6.7 % (0-4.4); Hematocrit 31.3 % (42.0-52.0); Hemoglobin 10.6 g/dL (14.0-18.0); Immature Granulocyte Absolute 0.01 K/mm3 (0.00-0.031); Immature Granulocyte Percent A 0.3 % (0-0.5); Immature Platelet Fraction Pct 3.8 % (0.9-11.2); Lymphocytes Absolute Auto 0.71 K/mm3 (0.9-3.2); Lymphocytes Percent Auto 22.5 % (18.3-44.2); Mean Corpuscular HGB Conc 33.9 g/dl (32-36); Mean Corpuscular Hemoglobin 38.3 pg (26-34); Mean Platelet Volume 9.5 fl (7.4-10.4); Monocytes Absolute Auto 0.4 K/mm3 (0.1-0.6); Neutrophils Absolute Auto 1.8 K/mm3 (1.3-6.7); Neutrophils Percent Auto 56.5 % (45.5-73.1); Platelet Count Result 92 k/mm3 (150-375); Red Blood Count 2.77 M/mm3 (4.6-6.20); Red Cell Distribution Width 12.9 % (11.5-14.5); White Blood Count 3.2 K/mm3 (4.5-10.0)
[2023-07-15 10:25] LABS: Blood Urea Nitrogen 17 mg/dL (8-26); Carbon Dioxide 25 mmol/L (22-30); Chloride 103 mmol/L (98-109); Estimated Glomerular Filt Rate 58; Glucose 302 mg/dL (70-105); Ionized Calcium (POC) 1.19 mmol/L (1.11-1.31); Sodium 140 mmol/L (138-146)
== END 2023-07-15 10:00 | disposition home or self-care (01) ==
PROVIDERS: PCP Family Medicine; Visit Provider Internal Medicine Hematology & Oncology
DX: D61.818 Other pancytopenia (principal)
CPT/HCPCS: 36415; 80047; 85025; 85055

== ENCOUNTER 2023-07-29 12:52 | Emergency (ER) | payer OTHER, SELFPAY ==
[2023-07-29] VITALS (10 sets, daily range): BP systolic 161–189; BP diastolic 67–87; PULSE 69–77; RESP 3–19; TEMP 36.5–36.9; O2SAT 98–100
--- NOTE | ~2023-07-29 | XR_ITS ---
EXAMINATION: XR chest 2V Exam Date/Time: 07/29/2023 16:40 CDT HISTORY: weakness, SOB, NANCY LEG SWELLING Comparison: 04/14/2021, report only. RESULT: Lines, tubes, and devices: None. Lungs and pleura: Mild diffuse reticular opacities, indistinct vessels. Streaky bibasilar atelectasi s/scar. Cardiomediastinal silhouette: Stable. Other: No acute osseous or upper abdominal finding. IMPRESSION: Mild interstitial edema. Reviewed, dictated and finalized at location K. IMPRESSION: Mild interstitial edema.
--- NOTE | ~2023-07-29 | CT_ITS ---
EXAMINATION: CTA abdomen pelvis DATE: 07/29/2023 18:47 INDICATION: precipitous anemia; hx colon cancer; c/f GI Bleed TECHNIQUE: Computed tomography (CT) of the abdomen and pelvis was performed with 100 mL Omnipaque-350 intravenous contrast in the arterial phase. Automated exposure control and iterative reconstruction technique were employed. The dose-length product was 1264.24 mGy-cm. COMPARISON: 07/12/2021. FINDINGS: Lower thorax: Coronary artery calcification. Bibasilar scar/atelectasis. Liver: Nodular liver border. Diffuse low-density liver parenchyma. Biliary/Gallbladder: Gallbladder is normal. No bile duct dilation. Pancreas: No mass or duct dilation. Spleen: Enlarged. Adrenals:No mass. Kidneys: No obstructing calcification or hydronephrosis. Bilateral simple cysts and hypodensities angelita t are too small to characterize. Field pancreas fatty infiltration. GI tract: Mild distal esophageal and gastric wall edema. No abnormal hyperdensity or extravasation de tected within the colon. Status post left colonic anastomosis. No small or large bowel dilation. Norm al appendix. Diverticulosis without diverticulitis. Mesentery/Peritoneum: No ascites, mass, or free air. Retroperitoneum: No mass. Atherosclerotic abdominal aortic and/or arterial calcifications. Pelvis: Mild bladder wall thickening and distention, likely related to obstruction from prostatomegal y. Soft Tissues: Fat-containing uncomplicated small ventral hernias. Bones: No acute osseous finding. IMPRESSION: Cirrhosis with splenomegaly. Mild esophagitis/gastritis. Cystitis versus chronic wall thickening from outlet obstruction. Otherwise, no acute abdominopelvic process. No CT findings to explain GI bleeding. Reviewed, dictated and finalized at location K. IMPRESSION: Cirrhosis with splenomegaly. Mild esophagitis/gastritis. Cystitis versus chronic wall thickening from outlet obstruction. Otherwise, no acute abdominopelvic process. No CT findings to explain GI bleedi ng.
--- NOTE | 2023-07-29 16:21 | ECG_ITS ---
Measurements Intervals [place] Rate: 69 P: 27 MS: 175 QRS: -34 QRSD: 114 T: 51 QT: 431 QTc: 465 Interpretive Statements SINUS RHYTHM PREMATURE VENTRICULAR CONTRACTIONS MARKED LEFT AXIS DEVIATION [QRS AXIS < -30] LEFT VENTRICULAR HYPERTROPHY AND ST-T CHANGE [VOLTAGE CRITERIA PLUS ST/T ABNORMALITY] COMPARED TO ECG 09/02/2022 18:05:17 NO SIGNIFICANT CHANGES Electronically Signed On 07-30-2023 8:47:26 CDT by Ethel Delatorre M.D.
[2023-07-29 16:47] LABS: Basophils Percent Auto 0.4 % (0.2-1.2); Eosinophils Absolute Auto 0.3 K/mm3 (0-0.3); Eosinophils Percent Auto 6.7 % (0-4.4); Immature Granulocyte Absolute 0.02 K/mm3 (0.00-0.031); Immature Granulocyte Percent A 0.4 % (0-0.5); Lymphocytes Absolute Auto 1.04 K/mm3 (0.9-3.2); Lymphocytes Percent Auto 20.5 % (18.3-44.2); Mean Corpuscular HGB Conc 33.2 g/dl (32-36); Mean Corpuscular Hemoglobin 38.2 pg (26-34); Mean Corpuscular Volume 115.3 fl (80-100); Mean Platelet Volume 10.4 fl (7.4-10.4); Monocytes Absolute Auto 0.7 K/mm3 (0.1-0.6); Monocytes Percent Auto 13.2 % (2.6-8.5); Neutrophils Percent Auto 58.8 % (45.5-73.1); Platelet Count Result 102 k/mm3 (150-375); Red Cell Distribution Width 13.7 % (11.5-14.5); White Blood Count 5.1 K/mm3 (4.5-10.0)
[2023-07-29 16:55] LABS: Appearance Urine Clear (Clear); Bacteria Urine None Seen /hpf; Bilirubin Urine Negative (Negative); Blood Urine Negative (Negative); Color Urine Yellow (Yellow); Glucose Urine UA Negative (Negative); Ketones Urine Negative (Negative); Leukocyte Esterase Ur Trace LEU/UL (Negative); Nitrate Urine Negative (Negative); Non Pathogenic Casts 0-2; Protein Urine Negative (Negative); RBC Urine 0-2 /hpf (0-2); Specific Grav Ur 1.005 (1.001-1.035); Squamous Epithelial Cell Urine None Seen /hpf (Few); WBC Urine 0-5 /hpf (0-3)
[2023-07-29 17:02] LABS: Hematocrit 19.6 % (42.0-52.0); Hemoglobin 6.5 g/dL (14.0-18.0)
[2023-07-29 17:07] LABS: Macrocytosis 1+ (NORMAL); Ovalocytes 1+; Platelet Estimate Decreased (Adequate); Schistocytes None Seen
--- NOTE | 2023-07-29 17:07 | ED.WEAKNESS ---
HPI - Weakness General Chief complaint: Weakness Stated complaint: dehydration Time Seen by Provider: 07/29/23 16:54 Source: patient and family (son) Mode of arrival: ambulatory Limitations: no limitations History of Present Illness HPI Narrative: Patient is a 82-year-old male who presents with report of generalized weakness particularly in his bilateral lower extremities which also ache. no Recent falls or trauma. He believes he may be dehydrated since he experienced these symptoms before when dehydrated but denies any vomiting or diarrhea. Denies paresthesias. His grandson brought him some Liquid IV. History of colon cancer treatment 13 years ago finished 2009. Denies history of CHF or SOB. No cough or fevers. Medications patient's list include 1 listed below as well as losartan, metformin glimepiride. He also previously to gabapentin states he discontinued this as it was helping. He also states he takes a medication that begins with an f that makes me have to go to the bathroom but can not say with certainty if it is furosemide/Lasix. Related Data Home Medications Medication Instructions Recorded Confirmed omega 1-bxo-ets-fish oil 300 1 cap PO DAILY 06/04/23 07/04/23 mg-1,000 mg capsule (Fish Oil) vit A 7,160 unit-vit C 113 mg-vit 1 tablet PO DAILY 06/04/23 07/04/23 E 100 yilk-xkeu-cetabf tablet vitamin B complex (B 1 tablet PO DAILY 06/04/23 07/04/23 Complex-Vitamin B12 tablet) Allergies Allergy/AdvReac Type Severity Reaction Status Date / Time EUGENE Inhibitors Allergy Intermediate cough Verified 07/04/23 09:29 shellfish derived Allergy Mild Itching Verified 07/04/23 09:29 AND RASH PMFSH Past Medical History Medical History Acute calculous cholecystitis Acute left flank pain Alcohol abuse Alcohol abuse Alcoholic cirrhosis of liver without ascites Arthritis Balanitis Benign reactive hypertension Blood glucose elevated Cholelithiasis NOS Chronic kidney disease, stage 3 (moderate) Chronic kidney disease, stage II (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 Congestive splenomegaly Cough Counseling for living will Cyst of kidney, acquired Dietary counseling and surveillance (08/28/18) DISH (diffuse idiopathic skeletal hyperostosis) DISH (diffuse idiopathic skeletal hyperostosis) Diverticulosis DM type 2 causing CKD stage 3 Elevated lactic acid level Elevated liver enzymes Encounter for other general examination Essential (primary) hypertension Fatty liver Gout, unspecified Hemochromatosis History of colon cancer 2009 s/p right hemicolectomy and chemotherapy History of colon cancer in adulthood Idiopathic chronic gout Leukocytosis (leucocytosis) Macrocytic anemia Malignant (primary) neoplasm, unspecified Mixed hyperlipidemia Neuropathy associated with cancer PMR (polymyalgia rheumatica) Pneumonia Polyneuropathy 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assified elsewhere Portal hypertension Right renal mass Rotator cuff tear arthropathy Sepsis Shoulder arthritis SIRS (systemic inflammatory response syndrome) Thrombocytopenia Ventral hernia without obstruction or gangrene Surgical History Surgical History History of colon resection 2009 Family History Family History Sibling Family history of malignant neoplasm of testis Malignant neoplasm of prostate Family history of arthritis Patient's brother is Hypertension Family history of gout Social History Social History Social History: Single Smoking status: Never smoker Second hand tobacco smoke exposure: No Alcohol intake: current Alcohol use details: 2-3 cans/week Substance use: never Substance use type: does not use Do You Feel Safe in yo
[2023-07-29 17:14] LABS: Alanine Aminotransferase 38 U/L (6-50); Albumin Level 3.5 g/dL (3.5-5.1); Alkaline Phosphatase 109 U/L (38-126); Anion Gap 3 mmol/L (4-12); Aspartate Amino Transferase 65 U/L (17-59); Bilirubin,Total 1.5 mg/dL (0.2-1.3); Blood Urea Nitrogen 15 mg/dL (9-20); Calcium 9.1 mg/dL (8.4-10.2); Carbon Dioxide 26 mmol/L (22-30); Chloride 110 mmol/L (98-107); Estimated CRCL calculation 58 ml/min; Estimated Glomerular Filt Rate > 60; Glucose 79 mg/dL (65-110); Potassium 3.9 mmol/L (3.4-5.0); Sodium 139 mmol/L (137-145)
[2023-07-29 17:28] LABS: Add Urine Microscopic? YES
[2023-07-29 17:38] LABS: INR 1.3; Prothrombin Time 16.8 Seconds (11.1-14.7)
[2023-07-29 17:39] LABS: Partial Thromboplastin Time 34.3 Seconds (22.3-36.8)
[2023-07-29 17:41] LABS: Creatine Kinase 158 U/L (55-170)
[2023-07-29] MEDS: SODIUM CHLORIDE 0.9% IV 250 ML 30 ML IV CONT (19:18)
== END 2023-07-29 22:21 | disposition home or self-care (01) ==
PROVIDERS: Emergency Provider Student in an Organized Health Care Education/Training Program; PCP Family Medicine
DX: D53.9 Nutritional anemia, unspecified (principal); E11.22 Type 2 diabetes mellitus with diabetic chronic kidney disease; I12.9 Hypertensive chronic kidney disease with stage 1 through stage 4 chronic kidney disease, or unspecified chronic kidney disease; N18.30 Chronic kidney disease, stage 3 unspecified; E11.42 Type 2 diabetes mellitus with diabetic polyneuropathy; D73.2 Chronic congestive splenomegaly; K70.30 Alcoholic cirrhosis of liver without ascites; E78.2 Mixed hyperlipidemia; M48.10 Ankylosing hyperostosis [Forestier], site unspecified; M1A.00X0 Idiopathic chronic gout, unspecified site, without tophus (tophi); M35.3 Polymyalgia rheumatica; M19.019 Primary osteoarthritis, unspecified shoulder; Z85.038 Personal history of other malignant neoplasm of large intestine; Z87.01 Personal history of pneumonia (recurrent); Z92.21 Personal history of antineoplastic chemotherapy; Z90.49 Acquired absence of other specified parts of digestive tract; I49.3 Ventricular premature depolarization; I51.7 Cardiomegaly; J81.1 Chronic pulmonary edema; K20.90 Esophagitis, unspecified without bleeding; K29.70 Gastritis, unspecified, without bleeding; R93.41 Abnormal radiologic findings on diagnostic imaging of renal pelvis, ureter, or bladder; Z79.84 Long term (current) use of oral hypoglycemic drugs
CPT/HCPCS: 36415; 36430; 71046; 74174; 80053; 81001; 82550; 83735; 85025; 85610; 85730; 86850; 86900; 86901; 86923; 93005; 96360; 96361; 99285; J7050; P9016; Q9967

== ENCOUNTER 2023-09-16 11:47 | Outpatient (CLI) | payer OTHER, SELFPAY ==
[2023-09-16 12:05] LABS: Basophils Percent Auto 0.7 % (0.2-1.2); Eosinophils Absolute Auto 0.2 K/mm3 (0-0.3); Eosinophils Percent Auto 4.9 % (0-4.4); Hematocrit 30.6 % (42.0-52.0); Hemoglobin 10.4 g/dL (14.0-18.0); Immature Granulocyte Absolute 0.01 K/mm3 (0.00-0.031); Immature Granulocyte Percent A 0.2 % (0-0.5); Immature Platelet Fraction Pct 3.9 % (0.9-11.2); Lymphocytes Absolute Auto 0.85 K/mm3 (0.9-3.2); Mean Corpuscular Volume 111.7 fl (80-100); Mean Platelet Volume 9.6 fl (7.4-10.4); Monocytes Absolute Auto 0.7 K/mm3 (0.1-0.6); Monocytes Percent Auto 16.7 % (2.6-8.5); Neutrophils Absolute Auto 2.4 K/mm3 (1.3-6.7); Neutrophils Percent Auto 57.5 % (45.5-73.1); Platelet Count Result 86 k/mm3 (150-375); Red Blood Count 2.74 M/mm3 (4.6-6.20); Red Cell Distribution Width 13.6 % (11.5-14.5); White Blood Count 4.3 K/mm3 (4.5-10.0)
[2023-09-16 16:35] LABS: Iron 98 ug/dL (49-181)
[2023-09-16 16:45] LABS: Percent Iron Saturation 46 % (20-50)
== END 2023-09-16 11:48 | disposition home or self-care (01) ==
LOC: ANHLAB 11:49
PROVIDERS: PCP Family Medicine; Visit Provider Internal Medicine Hematology & Oncology
DX: D61.818 Other pancytopenia (principal)
CPT/HCPCS: 36415; 82728; 83540; 83550; 85025; 85055

== ENCOUNTER 2023-11-05 14:35 | Outpatient (CLI) | payer OTHER, SELFPAY ==
--- NOTE | ~2023-11-05 | CT_ITS ---
EXAMINATION: CT abdomen pelvis wo con DATE: 11/05/2023 15:03 INDICATION: Left flank pain. TECHNIQUE: Computed tomography (CT) of the abdomen and pelvis was performed without intravenous contr ast. Automated exposure control and iterative reconstruction technique were employed. The dose-length product was 1123.66 mGy-cm. COMPARISON: CT abdomen and pelvis 07/29/2023 FINDINGS: The portions of the lung bases demonstrate mild atelectasis. No pleural effusion. Cardiomeg mike is noted. There are coronary artery calcifications. No pericardial effusion. The liver demonstrat es surface nodularity, consistent with cirrhosis. There are gallstones in the gallbladder, which is n ormal in size. There is moderate splenomegaly. The pancreas and adrenal glands are normal. There are cysts in the kidneys measuring up to 2.4 cm on the right. There is a supraumbilical ventral hernia co ntaining fat. The bladder is distended. The prostate is moderately enlarged. There is diverticulosis of the colon without evidence of diverticulitis. There are changes of right hemicolectomy. There is a right inguinal hernia containing fat. There are no pathologically enlarged lymph nodes. There is no free intraperitoneal fluid. There are bridging endplate osteophytes at multiple levels in the spine, consistent with diffuse idiopathic skeletal hyperostosis (DISH). There is mild lumbar spondylosis. IMPRESSION: 1. Cirrhosis of the liver with portal venous hypertension. 2. Supraumbilical ventral hernia containing fat. Reviewed, dictated and finalized at location E.
== END 2023-11-05 14:36 ==
LOC: GOSHIMG 14:36
PROVIDERS: PCP Family Medicine; Visit Provider Physician Assistant
DX: K43.9 Ventral hernia without obstruction or gangrene (principal); K74.69 Other cirrhosis of liver
CPT/HCPCS: 74176

== ENCOUNTER 2023-11-26 01:41 | Observation (INO) | payer OTHER, SELFPAY ==
[2023-11-26] VITALS (7 sets, daily range): BP systolic 134–164; BP diastolic 45–84; PULSE 77–87; RESP 12–18; TEMP 36.2–37.2; O2SAT 97–100; BMI 33.7
--- NOTE | ~2023-11-26 | CT_ITS ---
Non-contrast Head CT History: Weakness Technique: Axial non-contrast imaging of the brain was performed. Dose reduction technique was used on this scan by utilizing automated exposure control and iterative reconstruction technique. The dose -length product (DLP) was 605.33 mGy-cm. Findings: There is no evidence of intracranial hemorrhage, mass lesion, or acute infarct. Brain par enchyma appears normal. The ventricles and subarachnoid spaces are normal in size. The calvarium ap pears normal. The visualized paranasal sinuses and mastoid air cells are clear. Impression: No significant abnormality seen. Reviewed, dictated and finalized at location . Impression: No significant abnormality seen.
--- NOTE | ~2023-11-26 | MR_ITS ---
EXAMINATION: MR lumbar spine wo con DATE: 11/26/2023 14:22 INDICATION: Lower extremity weakness. Urinary retention. TECHNIQUE: Magnetic resonance imaging (MRI) of the lumbar spine was performed without intravenous con trast. Sequences included sagittal T2-weighted FSE, sagittal T2-weighted FS FSE, sagittal T1-weighted FSE, and axial T2-weighted FSE. COMPARISON: CT lumbar spine 11/26/2023 FINDINGS: There is 4 degrees dextrocurvature of lumbar spine. There is mild chronic anterior wedging of T12 and L1 vertebral bodies. Intervertebral disc heights are normal. The distal spinal cord signal intensity is normal. The conus medullaris is at T12-L1. The following disc levels are specifically d iscussed: L1-L2: The disc is bulging and has an annular fissure. There is moderate bilateral facet joint osteoa rthritis. There is mild bilateral neural foraminal stenosis. There is no central canal stenosis. L2-L3: The disc is bulging and has an annular fissure. There is mild bilateral facet joint osteoarthr itis. There is mild bilateral neural foraminal stenosis. There is no central canal stenosis. L3-L4: The disc is bulging and has an annular fissure. There is mild bilateral facet joint osteoarthr itis. There is mild right and moderate left neural foraminal stenosis. There is no central canal sten osis. L4-L5: The disc is bulging. There is moderate and severe left facet joint osteoarthritis. There is mi ld right and moderate left neural foraminal stenosis. There is mild central canal stenosis. L5-S1: The disc is bulging. There is severe bilateral facet joint osteoarthritis. There is mild bilat eral neural foraminal stenosis. There is no central canal stenosis. IMPRESSION: 1. Moderate lumbar spondylosis. Reviewed, dictated and finalized at location A.
--- NOTE | ~2023-11-26 | CT_ITS ---
Noncontrast CT scan of the lumbar spine CLINICAL HISTORY: Weakness TECHNIQUE: Axial noncontrast imaging of the lumbar spine was performed. Sagittal and coronal reformat darien images were constructed. Dose reduction technique was used on this scan by utilizing automated ex posure control and iterative reconstruction technique. The dose-length product (DLP) was 1207.83 mGy- cm. FINDINGS: No acute fracture or subluxation identified. Vertebral bodies appear to maintain normal hei ght and line. There are extensive anterior marginal osteophytes with relative preservation of disc sp aces, there are mild degenerative disc changes throughout the lumbar spine. At L1-L2, there is no significant disc bulge or herniation. There is mild facet arthropathy. No centr al canal stenosis or definite neural foraminal narrowing. At L2-L3, there is minimal disc bulge. There is mild central canal stenosis. There is mild to moderat e bilateral neural foraminal narrowing. At L3-L4, there is disc bulge with mild facet arthropathy. There is probable mild central canal steno sis. There is severe bilateral neural foraminal narrowing, left worse than right. At L4-L5, there is disc bulge and moderate facet arthropathy. There is mild central canal stenosis. T here is moderate bilateral neural foraminal narrowing. At L5-S1, there is disc bulge and severe facet arthropathy. No elvira central canal stenosis. There is moderate to severe bilateral neural foraminal narrowing, right worse than left. Paravertebral soft tissues are unremarkable. Impression: Moderate to advanced degenerative spondylosis, as detailed above. DISH. Reviewed, dictated and finalized at [facility]. Impression: Moderate to advanced degenerative spondylosis, as detailed above. DISH.
--- NOTE | 2023-11-26 01:51 | ECG_ITS ---
Test Date: 2023-11-26 01:48:42 Measurements Intervals [place] Rate: 82 P: 70 MO: 167 QRS: -35 QRSD: 110 T: 35 QT: 394 QTc: 461 Interpretive Statements SINUS RHYTHM WITH SINUS ARRHYTHMIA MARKED LEFT AXIS DEVIATION [QRS AXIS < -30] LEFT VENTRICULAR HYPERTROPHY AND ST-T CHANGE POSSIBLE SEPTAL MYOCARDIAL INFARCTION , PROBABLY OLD MINIMAL Q WAVE- HIGH LATERAL LEADS BORDERLINE T WAVE ABNORMALITY- ANTERIOR LEADS BASELINE ARTIFACT- II, III, V2, V6 ABNORMAL ECG No previous ECG available for comparison Electronically Signed On 11-26-2023 06:22:34 CDT by Cory Woods D.O.
[2023-11-26 02:02] LABS: Basophils Percent Auto 0.7 % (0.2-1.2); Eosinophils Absolute Auto 0.2 K/mm3 (0-0.3); Hematocrit 26.9 % (42.0-52.0); Hemoglobin 9.2 g/dL (14.0-18.0); Immature Granulocyte Absolute 0.01 K/mm3 (0.00-0.031); Immature Granulocyte Percent A 0.2 % (0-0.5); Immature Platelet Fraction Pct 4.2 % (0.9-11.2); Lymphocytes Absolute Auto 0.87 K/mm3 (0.9-3.2); Lymphocytes Percent Auto 20.6 % (18.3-44.2); Mean Corpuscular HGB Conc 34.2 g/dl (32-36); Mean Corpuscular Hemoglobin 38.7 pg (26-34); Mean Platelet Volume 9.9 fl (7.4-10.4); Monocytes Absolute Auto 0.4 K/mm3 (0.1-0.6); Monocytes Percent Auto 9.7 % (2.6-8.5); Neutrophils Absolute Auto 2.7 K/mm3 (1.3-6.7); Neutrophils Percent Auto 63.8 % (45.5-73.1); Platelet Count Result 72 k/mm3 (150-375); Red Blood Count 2.38 M/mm3 (4.6-6.20); Red Cell Distribution Width 13.7 % (11.5-14.5); White Blood Count 4.2 K/mm3 (4.5-10.0)
[2023-11-26 02:11] LABS: Alanine Aminotransferase 36 U/L (6-50); Albumin Level 3.1 g/dL (3.5-5.1); Alkaline Phosphatase 99 U/L (38-126); Anion Gap 10 mmol/L (4-12); Aspartate Amino Transferase 52 U/L (17-59); Bilirubin,Total 1.4 mg/dL (0.2-1.3); Blood Urea Nitrogen 24 mg/dL (9-20); Calcium 9.8 mg/dL (8.4-10.2); Carbon Dioxide 23 mmol/L (22-30); Chloride 103 mmol/L (98-107); Estimated CRCL calculation 37 ml/min; Estimated Glomerular Filt Rate 41; Glucose 202 mg/dL (65-110); Potassium 3.8 mmol/L (3.4-5.0); Sodium 136 mmol/L (137-145)
--- NOTE | 2023-11-26 02:31 | ED.WEAKNESS ---
HPI - Weakness General Chief complaint: Weakness Stated complaint: generalized weakness Time Seen by Provider: 11/26/23 01:43 Source: patient and family Limitations: no limitations History of Present Illness HPI Narrative: Patient is a 83-year-old male presents to the emergency department by EMS for weakness. Patient states over the past 1.5 days he has been feeling weaker in his bilateral legs compared to his baseline weakness. Patient notes that he is wheelchair dependent but is typically able to hold himself up when trying to get onto the toilet with use of his arms and is able to bear some weight on his legs however he was unable to do so now. Family notes that the patient has been weaker in his legs for the past approximately 3-4 weeks. Patient is currently pending physical therapy and occupational therapy in the upcoming week. Patient states he is getting chemotherapy for myelodysplastic syndrome in which he gets 2 shots in his abdomen for 5 days every month any got it last month and then just finished the course this month a few days ago. Patient was told that he would get some side effects but he usually would get too severe and typically after about the 4th treatment. Patient also states states that the chemotherapy is a stimulator for red blood cells but does not know what the name of the chemotherapy is. Patient denies any recent injuries, recent illness, chest pain, difficulty breathing, weakness in his arms, urinary incontinence, stool incontinence, dysuria, urinary frequency, melena, hematochezia, diarrhea, constipation, abdominal pain, confusion, sore throat, nasal congestion, fever, numbness. Patient admits to chronic peripheral neuropathy that is unchanged. Patient admits to chronic lower back pain that is unchanged. Patient is noted Dr. Melo are shot from Hematology-Oncology. Related Data Home Medications Medication Instructions Recorded Confirmed omega 6-qsl-vss-fish oil 300 1 cap PO DAILY 06/04/23 11/22/23 mg-1,000 mg capsule (Fish Oil) vit A 7,160 unit-vit C 113 mg-vit 1 tablet PO DAILY 06/04/23 11/22/23 E 100 bxfg-care-beklkd tablet vitamin B complex (B 1 tablet PO DAILY 06/04/23 11/22/23 Complex-Vitamin B12 tablet) Allergies Allergy/AdvReac Type Severity Reaction Status Date / Time EUGENE Inhibitors Allergy Intermediate cough Verified 11/22/23 11:05 shellfish derived Allergy Mild Itching Verified 11/22/23 11:05 AND RASH Review of Systems Review of Systems: A 10 system review of systems was completed on the patient and is negative except for what is stated in the HPI. Nursing and ancillary documentation was reviewed. [facility] Past Medical History Medical History Acute calculous cholecystitis Acute left flank pain Alcohol abuse Alcohol abuse Alcoholic cirrhosis of liver without ascites Arthritis Balanitis Benign reactive hypertension Blood glucose elevated Cholelithiasis NOS Chronic kidney disease, stage 3 (moderate) Chronic kidney disease, stage II (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 Congestive splenomegaly Cough Counseling for living will Cyst of kidney, acquired Dietary counseling and surveillance (08/28/18) DISH (diffuse idiopathic skeletal hyperostosis) DISH (diffuse idiopathic skeletal hyperostosis) Diverticulosis DM type 2 causing CKD stage 3 Elevated lactic acid level Elevated liver enzymes Encounter for other general examination Essential (primary) hypertension Fatty liver Gout, unspecified Hemochromatosis History of colon cancer 2009 s/p right hemicolectomy and chemotherapy History of colon cancer in adulthood Idiopathic chronic gout Leukocytosis (leucocytosis) Macrocytic anemia Malignant (primary) neoplasm, unspecified Mixed hyperlipidemia Neuropathy associated with cancer PMR (polymyalgia rheumatica) Pneumonia Polyneuropathy 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
[2023-11-26 02:47] LABS: Creatine Kinase 176 U/L (55-170)
[2023-11-26 02:49] LABS: Magnesium 2.1 mg/dL (1.6-2.3); Phosphorus 2.6 mg/dL (2.5-4.5)
[2023-11-26] MEDS: SODIUM CHLORIDE 0.9% IV 500 ML 100 ML IV CONT (02:52)
[2023-11-26 03:01] LABS: Troponin I < 0.012 ng/mL (0.000-0.034)
--- NOTE | 2023-11-26 04:01 | PM.IMHP ---
H&P: HPI History of Present Illness Date/Time: 11/26/23 04:01 Chief Complaint: weakness Narrative: This is a 83-year-old male with past medical history significant for colon cancer status post surgery, myelodysplastic syndrome, type diabetes mellitus, alcohol abuse, alcoholic cirrhosis chronic kidney disease, hypertension, gout, polymyalgia rheumatica, polyneuropathy. Patient uses wheelchair but he is able to get it up and transfer on his on however he has not been able to get up on his on in the last few days, in emergency room patient was found to have urinary retention. Patient denies any fevers, rigors, chills, nausea, vomiting, diarrhea, night sweats. Preliminary workup was significant for urinalysis with 50-100 WBCs per high-power field. A CT of lumbar spine was negative for vertebral fracture. Patient has been admitted for further evaluation management and treatment. Review of Systems Review of Systems: bilateral lower extremity weakness, urinary retention PMFSH Past Medical History Medical History Acute calculous cholecystitis Acute left flank pain Alcohol abuse Alcohol abuse Alcoholic cirrhosis of liver without ascites Arthritis Balanitis Benign reactive hypertension Blood glucose elevated Cholelithiasis NOS Chronic kidney disease, stage 3 (moderate) Chronic kidney disease, stage II (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 Congestive splenomegaly Cough Counseling for living will Cyst of kidney, acquired Dietary counseling and surveillance (08/28/18) DISH (diffuse idiopathic skeletal hyperostosis) DISH (diffuse idiopathic skeletal hyperostosis) Diverticulosis DM type 2 causing CKD stage 3 Elevated lactic acid level Elevated liver enzymes Encounter for other general examination Essential (primary) hypertension Fatty liver Gout, unspecified Hemochromatosis History of colon cancer 2009 s/p right hemicolectomy and chemotherapy History of colon cancer in adulthood Idiopathic chronic gout Leukocytosis (leucocytosis) Macrocytic anemia Malignant (primary) neoplasm, unspecified Mixed hyperlipidemia Neuropathy associated with cancer PMR (polymyalgia rheumatica) Pneumonia Polyneuropathy 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assified elsewhere Portal hypertension Right renal mass Rotator cuff tear arthropathy Sepsis Shoulder arthritis SIRS (systemic inflammatory response syndrome) Thrombocytopenia Ventral hernia without obstruction or gangrene Surgical History Surgical History History of colon resection 2009 Family History Family History Sibling Family history of malignant neoplasm of testis Malignant neoplasm of prostate Family history of arthritis Patient's brother is Hypertension Family history of gout Social History Social History Social History: Single Smoking status: Never smoker Second hand tobacco smoke exposure: No Alcohol intake: current Alcohol use details: 2-3 cans/week Substance use: never Substance use type: does not use Do You Feel Safe in your Home?: Yes Lack of Transportation: No Lack of Food: Never True Current Housing: I Have Housing Concerned About Future Housing: No Difficulty Paying Gas/Electric Bills: No Difficulty Paying for Meds: No Currently Unemployed: YES Education: Decline to Answer Difficulty w/ Childcare or Family Care: No Living arrangements: alone Occupation/Education: retired Gender identity (if verbalized by the patient): Male Sexual Orientation (if Verbalized by the Patient): Straight or Heterosexual Spiritual care concerns: No Meds Home Medications and Allergies Home Medications Medication Instructions Recorded Confirmed Typ
[2023-11-26 04:44] LABS: Appearance Urine Cloudy (Clear); Bacteria Urine 2+ /hpf; Bilirubin Urine Negative (Negative); Blood Urine Negative (Negative); Color Urine Yellow (Yellow); Glucose Urine UA Negative (Negative); Ketones Urine Negative (Negative); Leukocyte Esterase Ur 3+ LEU/UL (Negative); Need Manual Microscopic Reviewed; Nitrate Urine Positive (Negative); Non Pathogenic Casts 0-2; Protein Urine Negative (Negative); RBC Urine 0-2 /hpf (0-2); Specific Grav Ur 1.014 (1.001-1.035); Squamous Epithelial Cell Urine None Seen /hpf (Few); WBC Urine 51-100 /hpf (0-3)
[2023-11-26 04:47] LABS: Add Urine Microscopic? YES
--- NOTE | 2023-11-26 05:05 | ADMGEN ---
This patient, Robby Graves, was admitted to [facility] Surg Room 325-01. Patient/family oriented to hospital policies and general routines including ID bracelet, bed and alarms, visiting hours, pain management, procedures, bathroom and other care routines, personal items, smoking policy, room service/diet, and visiting hours. Information on how to activate the Rapid Response Team has been discussed. Patient/Family are encouraged to report perceived risks to care and to ask questions if they do not understand what they are told or what they should do.
[2023-11-26 05:43] LABS: Glucose Point of Care 148 mg/dl (65-105)
[2023-11-26 07:29] LABS: Glucose Point of Care 144 mg/dl (65-105)
[2023-11-26] MEDS: TOLNAFTATE 1% POWDER 45 GM BTL 1 APPLIC TOPICAL ×2 (09:06→20:27)
--- NOTE | 2023-11-26 09:50 | PCPTNOTE ---
Spoke with hospitalist, Dr. Oliveira, regarding bedrest orders. Per hospitalist, he has not seen the pt yet. Bedrest orders remain until hospitalist assessment. Holding PT evaluations until hospitalist clears bedrest orders.
[2023-11-26 11:17] LABS: Glucose Point of Care 196 mg/dl (65-105)
[2023-11-26] MEDS: GABAPENTIN 100 MG CAPSULE PO ×2 (12:33→16:48)
[2023-11-26] MEDS: SODIUM CHLORIDE 0.9% IV 1,000 ML 75 ML IV CONT (15:06)
[2023-11-26 16:17] LABS: Glucose Point of Care 158 mg/dl (65-105)
[2023-11-26] MEDS: HEPARIN SODIUM 5,000 UNITS/ML VIAL 5000 UNITS SUB-Q (20:28)
[2023-11-27 05:39] LABS: Basophils Percent Auto 0.7 % (0.2-1.2); Eosinophils Absolute Auto 0.3 K/mm3 (0-0.3); Eosinophils Percent Auto 6.9 % (0-4.4); Hematocrit 26.1 % (42.0-52.0); Hemoglobin 8.9 g/dL (14.0-18.0); Immature Granulocyte Absolute 0.02 K/mm3 (0.00-0.031); Immature Granulocyte Percent A 0.5 % (0-0.5); Immature Platelet Fraction Pct 4.8 % (0.9-11.2); Lymphocytes Percent Auto 19.7 % (18.3-44.2); Mean Corpuscular HGB Conc 34.1 g/dl (32-36); Mean Corpuscular Hemoglobin 39.6 pg (26-34); Monocytes Absolute Auto 0.4 K/mm3 (0.1-0.6); Monocytes Percent Auto 9.9 % (2.6-8.5); Neutrophils Absolute Auto 2.5 K/mm3 (1.3-6.7); Neutrophils Percent Auto 62.3 % (45.5-73.1); Platelet Count Result 55 k/mm3 (150-375); Red Blood Count 2.25 M/mm3 (4.6-6.20); Red Cell Distribution Width 13.6 % (11.5-14.5); White Blood Count 4.1 K/mm3 (4.5-10.0)
[2023-11-27 05:42] LABS: Anion Gap 7 mmol/L (4-12); Blood Urea Nitrogen 19 mg/dL (9-20); Calcium 8.5 mg/dL (8.4-10.2); Carbon Dioxide 23 mmol/L (22-30); Chloride 107 mmol/L (98-107); Estimated CRCL calculation 44 ml/min; Estimated Glomerular Filt Rate 52; Glucose 120 mg/dL (65-110); Magnesium 1.8 mg/dL (1.6-2.3); Potassium 4.3 mmol/L (3.4-5.0); Sodium 137 mmol/L (137-145)
[2023-11-27 06:00] VITALS: BP 143/58; PULSE 71; RESP 18; TEMP 36.4; O2SAT 96
[2023-11-27] MEDS: SODIUM CHLORIDE 0.9% IV 1,000 ML 75 ML IV CONT (06:30)
[2023-11-27 06:31] LABS: Anisocytosis 1+; Macrocytosis 1+ (NORMAL); Platelet Estimate Decreased (Adequate)
[2023-11-27 06:32] LABS: Schistocytes None Seen
[2023-11-27 06:37] LABS: Glucose Point of Care 164 mg/dl (65-105)
--- NOTE | 2023-11-27 06:50 | PC.NURSE ---
I have reviewed the LPNs charting at this time and I agree with the documentation. Will continue to monitor patient at this time.
[2023-11-27 07:49] LABS: Glucose Point of Care 124 mg/dl (65-105)
[2023-11-27] MEDS: GABAPENTIN 100 MG CAPSULE PO ×2 (08:31→12:12)
[2023-11-27] MEDS: TOLNAFTATE 1% POWDER 45 GM BTL 1 APPLIC TOPICAL ×2 (08:32→20:15)
[2023-11-27 11:51] LABS: Glucose Point of Care 196 mg/dl (65-105)
--- NOTE | 2023-11-27 13:50 | PM.IMPN ---
Progress Note: A&P Assessment and Plan (1) UTI (urinary tract infection): Code(s): N39.0 - Urinary tract infection, site not specified Status: Acute (2) TRINIDAD (acute kidney injury): Code(s): N17.9 - Acute kidney failure, unspecified Status: Acute (3) Bilateral leg weakness: Code(s): R29.898 - Other symptoms and signs involving the musculoskeletal system Status: Acute (4) Debility: Code(s): R53.81 - Other malaise Status: Acute (5) Acute urinary retention: Code(s): R33.8 - Other retention of urine Status: Acute (6) Back pain: Code(s): M54.9 - Dorsalgia, unspecified Status: Acute (7) MDS (myelodysplastic syndrome): Code(s): D46.9 - Myelodysplastic syndrome, unspecified Status: Acute Plan 83-year-old male with PMH CKD, myelodysplastic syndrome currently receiving Azacitidine, alcohol use disorder, alcoholic cirrhosis, hypertension, chronic lower back pain, lumbar spondylosis, gout, polymyalgia rheumatica, polyneuropathy, history of iron overload, pancytopenia, history of colon cancer, hop-jntjzjj-bxcixjtqi diabetes mellitus, hyperlipidemia. Presented to [place] [facility] on 11/26/2023 with increasing bilateral lower extremity weakness and unable to transfer on his wheelchair. Found to have pancytopenia and abnormal urinalysis and urinary retention. # debility/weakness/polyneuropathy/lumbar spondylosis/myelodysplastic syndrome -status: Acute on chronic -MRI L-spine with moderate lumbar spondylosis. He was getting outpatient PT and OT. Feels it is not enough. Therapy evaluations here command acute rehab, agree. Disposition pending, being arranged by care coordinators. Complicated by UTI and possible side effect of chemo. -follows with Dr. Melo -patient has poor appetite. Diabetic diet with Glucerna shakes b.i.d. -discontinue gabapentin. It is causing him nausea. He was not taking that at home # pancytopenia -status: Chronic -continue to monitor # urinary tract infection -status: Acute -abnormal urinalysis on admission demonstrating 3+ leukocyte esterase, no squamous cells, 51-100 wbc's, positive nitrates. Patient does not have symptomatology although he has neuropathy. -continue ceftriaxone started on admission 11/26/2023. Follow-up urine cultures. Previously grew coag-negative staph pansensitive # urinary retention -status: Acute -multiple etiologies considered. -voiding trial tomorrow on 11/28/2023 Chronic Conditions -[id number]-[id number] diabetes mellitus: glucose monitoring ACHS, LDISS, hypoglycemia protocol -alcohol use disorder -hypertension F/E/N: saline lock IV, replace lytes as needed, diabetic diet, dietary supplements with Glucerna GI prophylaxis: Not indicated DVT prophylaxis: Holding heparin, SCDs Lines: Peripheral IV, San catheter inserted on admission Code Status: Patient wishes to be DNR. Dispo: Stable on medical floor Functional status and anticipated needs: Therapy evaluations pending, disposition to acute rehab Medication reconciliation obtained via the following: Completed on admission [facility] -Living arrangements, functional status, significant history: Lives at home alone. Previously ambulatory, now uses wheelchair as he has had progressive weakness of the bilateral lower extremities. Kids check on him daily -Patient was screened for food insecurity, housing instability, transportation needs, utility difficulties, and interpersonal safety. Will need to go to nursing home/acute rehab due to debility Agents of Abuse -Illicit drug abuse: Denies -ETOH abuse: -Tobacco/nicotine: Denies -Energy drinks: Denies -Additional supplements: Denies Note to the patient: The Century Cures Act makes medical notes like these available to patients in the interest of transparency. Please be advised this is a medical document. It is in
[2023-11-27 14:00] VITALS: BP 123/51; PULSE 76; RESP 18; TEMP 36.3; O2SAT 100
[2023-11-27 16:35] LABS: Glucose Point of Care 220 mg/dl (65-105)
[2023-11-27] MEDS: INSULIN ASPART (*BKC) 100 UNITS/ML SUB-Q ×2 (16:39→20:15)
[2023-11-27 20:30] VITALS: O2SAT 100
[2023-11-27 21:07] LABS: Glucose Point of Care 225 mg/dl (65-105)
[2023-11-27 21:11] VITALS: BP 139/59; PULSE 78; RESP 16; TEMP 36.2; O2SAT 100
[2023-11-28 06:00] VITALS: BP 152/59; PULSE 80; RESP 16; TEMP 36.3; O2SAT 99
[2023-11-28 06:18] LABS: Hematocrit 26.1 % (42.0-52.0); Immature Platelet Fraction Pct 5.2 % (0.9-11.2); Mean Corpuscular HGB Conc 34.5 g/dl (32-36); Mean Corpuscular Hemoglobin 39.5 pg (26-34); Mean Corpuscular Volume 114.5 fl (80-100); Mean Platelet Volume 11.2 fl (7.4-10.4); Platelet Count Result 49 k/mm3 (150-375); Red Blood Count 2.28 M/mm3 (4.6-6.20); Red Cell Distribution Width 13.3 % (11.5-14.5); White Blood Count 4.2 K/mm3 (4.5-10.0)
[2023-11-28 06:28] LABS: Anion Gap 6 mmol/L (4-12); Blood Urea Nitrogen 19 mg/dL (9-20); Calcium 8.4 mg/dL (8.4-10.2); Carbon Dioxide 23 mmol/L (22-30); Chloride 108 mmol/L (98-107); Estimated CRCL calculation 52 ml/min; Estimated Glomerular Filt Rate > 60; Glucose 126 mg/dL (65-110); Magnesium 1.8 mg/dL (1.6-2.3); Potassium 4.2 mmol/L (3.4-5.0); Sodium 137 mmol/L (137-145)
[2023-11-28 07:52] LABS: Glucose Point of Care 147 mg/dl (65-105)
[2023-11-28] MEDS: TOLNAFTATE 1% POWDER 45 GM BTL 1 APPLIC TOPICAL ×2 (08:34→20:53)
[2023-11-28] MEDS: polyethylene glycoL 3350 17 GM POWD.PACK PO (10:31)
--- NOTE | 2023-11-28 11:30 | PCOTNOTE ---
Attempted to see Patient at this time. Patient stated he was not feeling the best at this time, having increased nausea. Patient requested therapist to come back this afternoon.
[2023-11-28 11:49] LABS: Glucose Point of Care 207 mg/dl (65-105)
[2023-11-28] MEDS: INSULIN ASPART (*BKC) 100 UNITS/ML SUB-Q (13:33)
[2023-11-28 14:05] VITALS: BP 147/48; PULSE 73; RESP 16; TEMP 36.4; O2SAT 99
--- NOTE | 2023-11-28 15:31 | PM.IMPN ---
Progress Note: A&P Assessment and Plan (1) UTI (urinary tract infection): Code(s): N39.0 - Urinary tract infection, site not specified Status: Acute (2) TRINIDAD (acute kidney injury): Code(s): N17.9 - Acute kidney failure, unspecified Status: Acute (3) Bilateral leg weakness: Code(s): R29.898 - Other symptoms and signs involving the musculoskeletal system Status: Acute (4) Debility: Code(s): R53.81 - Other malaise Status: Acute (5) Acute urinary retention: Code(s): R33.8 - Other retention of urine Status: Acute (6) Back pain: Code(s): M54.9 - Dorsalgia, unspecified Status: Acute (7) MDS (myelodysplastic syndrome): Code(s): D46.9 - Myelodysplastic syndrome, unspecified Status: Acute Plan 83-year-old male with PMH CKD, myelodysplastic syndrome currently receiving Azacitidine, alcohol use disorder, alcoholic cirrhosis, hypertension, chronic lower back pain, lumbar spondylosis, gout, polymyalgia rheumatica, polyneuropathy, history of iron overload, pancytopenia, history of colon cancer, mjv-yrbdekz-uxstqqzvp diabetes mellitus, hyperlipidemia. Presented to [facility] on 11/26/2023 with increasing bilateral lower extremity weakness and unable to transfer on his wheelchair. Found to have pancytopenia and abnormal urinalysis and urinary retention. # debility/weakness/polyneuropathy/lumbar spondylosis/myelodysplastic syndrome -status: Acute on chronic -MRI L-spine with moderate lumbar spondylosis. He was getting outpatient PT and OT. Feels it is not enough. Therapy evaluations here recommend acute rehab, agree. Disposition pending, being arranged by care coordinators. Complicated by UTI and possible side effect of chemo. -follows with Dr. Melo -patient has poor appetite. Diabetic diet with Glucerna shakes b.i.d. -discontinue gabapentin. It is causing him nausea. He was not taking that at home -November 27: Strength is improved # pancytopenia -status: Chronic -continue to monitor # urinary tract infection -status: Acute -abnormal urinalysis on admission demonstrating 3+ leukocyte esterase, no squamous cells, 51-100 wbc's, positive nitrates. Patient does not have symptomatology although he has neuropathy. -ceftriaxone started on admission 11/26/2023. Urine cultures growing coag-negative staph just like prior. Switch ceftriaxone to Augmentin for total 7 days on 11/27 follow-up sensitivities. # urinary retention -status: Acute -multiple etiologies considered. -voiding trial today on 11/28/2023 Chronic Conditions -cgb-hdwqalx-eungbiqgf diabetes mellitus: glucose monitoring ACHS, LDISS, hypoglycemia protocol -alcohol use disorder -hypertension F/E/N: saline lock IV, replace lytes as needed, diabetic diet, dietary supplements with Glucerna GI prophylaxis: Not indicated DVT prophylaxis: Holding heparin due to thrombocytopenia, SCDs Lines: Peripheral IV, San catheter inserted on admission, removed on 11/27 for voiding trial Code Status: Patient wishes to be DNR. Dispo: Stable on medical floor Functional status and anticipated needs: Therapy, disposition to acute rehab, being arranged by care coordination Medication reconciliation obtained via the following: Completed on admission [facility] [place] [facility] -Living arrangements, functional status, significant history: Lives at home alone. Previously ambulatory, now uses wheelchair as he has had progressive weakness of the bilateral lower extremities. Kids check on him daily -Patient was screened for food insecurity, housing instability, transportation needs, utility difficulties, and interpersonal safety. Will need to go to assisted/acute rehab due to debility Agents of Abuse -Illicit drug abuse: Denies -ETOH abuse: -Tobacco/nicotine: Denies -Energy drinks: Denies -Additional supplements: Denies Note to the patient:
[2023-11-28 17:33] LABS: Glucose Point of Care 166 mg/dl (65-105)
[2023-11-28 20:00] VITALS: PULSE 78; RESP 16; O2SAT 100
[2023-11-28] MEDS: AMOXICILLIN/CLAVULANATE K 875-125 MG TAB 1 TABLET PO (20:52)
[2023-11-28 21:58] VITALS: BP 134/54; PULSE 78; RESP 16; TEMP 36.9; O2SAT 100
[2023-11-28 23:53] LABS: Glucose Point of Care 176 mg/dl (65-105)
--- NOTE | 2023-11-29 05:57 | WPDURCON ---
Assessment and Plan Assessment and plan (1) BPH loc w urin obs/LUTS: Code(s): N40.1 - Benign prostatic hyperplasia with lower urinary tract symptoms Status: Acute Assessment and Plan: Transient difficulty voiding likely related to constipation This is now resolved and she had required no additional intervention from a urological standpoint Urology Consult Note HPI Date Seen: 11/29/23 Requesting Physician: Lester Wise MD Primary Care Provider: Sneha Garcia MD Consult Narrative Narrative: Robby Graves is a 83 year old male Known to our practice with a history of BPH not requiring medical intervention and an atypical renal mass followed conservatively. We are asked to see him during this admission for transient difficulty voiding around the time that he was constipated. When saw him in consultation last evening he had started to void effectively and without signs of retention following a bowel movement Review of Systems Review of Systems: All systems reviewed & are unremarkable except as noted in HPI and below PMFSH Past Medical History Medical History Acute calculous cholecystitis Acute left flank pain Alcohol abuse Alcohol abuse Alcoholic cirrhosis of liver without ascites Arthritis Balanitis Benign reactive hypertension Blood glucose elevated Cholelithiasis NOS Chronic kidney disease, stage 3 (moderate) Chronic kidney disease, stage II (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 Congestive splenomegaly Cough Counseling for living will Cyst of kidney, acquired Dietary counseling and surveillance (08/28/18) DISH (diffuse idiopathic skeletal hyperostosis) DISH (diffuse idiopathic skeletal hyperostosis) Diverticulosis DM type 2 causing CKD stage 3 Elevated lactic acid level Elevated liver enzymes Encounter for other general examination Essential (primary) hypertension Fatty liver Gout, unspecified Hemochromatosis History of colon cancer 2009 s/p right hemicolectomy and chemotherapy History of colon cancer in adulthood Idiopathic chronic gout Leukocytosis (leucocytosis) Macrocytic anemia Malignant (primary) neoplasm, unspecified Mixed hyperlipidemia Neuropathy associated with cancer PMR (polymyalgia rheumatica) Pneumonia Polyneuropathy 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assified elsewhere Portal hypertension Right renal mass Rotator cuff tear arthropathy Sepsis Shoulder arthritis SIRS (systemic inflammatory response syndrome) Thrombocytopenia Ventral hernia without obstruction or gangrene Surgical History Surgical History History of colon resection 2010 Family History Family History Sibling Family history of malignant neoplasm of testis Malignant neoplasm of prostate Family history of arthritis Patient's brother is Hypertension Family history of gout Social History Social History Social History: Single Smoking status: Never smoker Second hand tobacco smoke exposure: No Alcohol intake: never Alcohol use details: 2-3 cans/week Substance use: never Substance use type: does not use Do You Feel Safe in your Home?: Yes Lack of Transportation: No Lack of Food: Never True Current Housing: I Have Housing Concerned About Future Housing: No Difficulty Paying Gas/Electric Bills: No Difficulty Paying for Meds: No Currently Unemployed: No Education: High School Diploma/GED Difficulty w/ Childcare or Family Care: No Living arrangements: alone Occupation/Education: retired Gender identity (if verbalized by the patient): Male Sexual Orientation (if Verbalized by the Patient): Straight or Heterosexual Spiritual care concerns: No Meds Home
[2023-11-29 06:00] VITALS: BP 152/63; PULSE 84; RESP 16; TEMP 37; O2SAT 99
[2023-11-29 06:26] LABS: Hematocrit 27.1 % (42.0-52.0); Hemoglobin 9.2 g/dL (14.0-18.0); Immature Platelet Fraction Pct 6.2 % (0.9-11.2); Mean Corpuscular HGB Conc 33.9 g/dl (32-36); Mean Corpuscular Volume 114.8 fl (80-100); Mean Platelet Volume 10.3 fl (7.4-10.4); Platelet Count Result 53 k/mm3 (150-375); Red Blood Count 2.36 M/mm3 (4.6-6.20); Red Cell Distribution Width 13.3 % (11.5-14.5); White Blood Count 3.8 K/mm3 (4.5-10.0)
[2023-11-29 06:43] LABS: Anion Gap 7 mmol/L (4-12); Blood Urea Nitrogen 18 mg/dL (9-20); Calcium 8.5 mg/dL (8.4-10.2); Carbon Dioxide 23 mmol/L (22-30); Chloride 107 mmol/L (98-107); Estimated CRCL calculation 57 ml/min; Estimated Glomerular Filt Rate > 60; Glucose 130 mg/dL (65-110); Magnesium 1.9 mg/dL (1.6-2.3); Potassium 4.1 mmol/L (3.4-5.0); Sodium 137 mmol/L (137-145)
[2023-11-29 08:19] LABS: Glucose Point of Care 152 mg/dl (65-105)
[2023-11-29] MEDS: AMOXICILLIN/CLAVULANATE K 875-125 MG TAB 1 TABLET PO ×2 (08:55→20:37)
[2023-11-29] MEDS: polyethylene glycoL 3350 17 GM POWD.PACK PO (08:55)
[2023-11-29] MEDS: TOLNAFTATE 1% POWDER 45 GM BTL 1 APPLIC TOPICAL ×2 (08:57→20:37)
[2023-11-29 11:55] LABS: Glucose Point of Care 174 mg/dl (65-105)
[2023-11-29 14:34] VITALS: BP 145/60; PULSE 75; RESP 17; TEMP 36.7; O2SAT 100
[2023-11-29 16:52] LABS: Glucose Point of Care 157 mg/dl (65-105)
--- NOTE | 2023-11-29 18:37 | PM.IMPN ---
Progress Note: A&P Assessment and Plan (1) UTI (urinary tract infection): Code(s): N39.0 - Urinary tract infection, site not specified Status: Acute (2) TRINIDAD (acute kidney injury): Code(s): N17.9 - Acute kidney failure, unspecified Status: Acute (3) Bilateral leg weakness: Code(s): R29.898 - Other symptoms and signs involving the musculoskeletal system Status: Acute (4) Debility: Code(s): R53.81 - Other malaise Status: Acute (5) Acute urinary retention: Code(s): R33.8 - Other retention of urine Status: Acute (6) Back pain: Code(s): M54.9 - Dorsalgia, unspecified Status: Acute (7) MDS (myelodysplastic syndrome): Code(s): D46.9 - Myelodysplastic syndrome, unspecified Status: Acute Plan 83-year-old male with PMH CKD, myelodysplastic syndrome currently receiving Azacitidine, alcohol use disorder, alcoholic cirrhosis, hypertension, chronic lower back pain, lumbar spondylosis, gout, polymyalgia rheumatica, polyneuropathy, history of iron overload, pancytopenia, history of colon cancer, cmv-ppusxgr-sjnepvurn diabetes mellitus, hyperlipidemia. Presented to [facility] on 11/26/2023 with increasing bilateral lower extremity weakness and unable to transfer on his wheelchair. Found to have pancytopenia and abnormal urinalysis and urinary retention. We continue to wait for insurance to be approved. Continue present management. # debility/weakness/polyneuropathy/lumbar spondylosis/myelodysplastic syndrome -status: Acute on chronic -MRI L-spine with moderate lumbar spondylosis. He was getting outpatient PT and OT. Feels it is not enough. Therapy evaluations here recommend acute rehab, agree. Disposition pending, being arranged by care coordinators. Complicated by UTI and possible side effect of chemo. -follows with Dr. Melo -patient has poor appetite. Diabetic diet with Glucerna shakes b.i.d. -discontinue gabapentin. It is causing him nausea. He was not taking that at home -November 27: Strength is improved # pancytopenia -status: Chronic -continue to monitor # urinary tract infection -status: Acute -abnormal urinalysis on admission demonstrating 3+ leukocyte esterase, no squamous cells, 51-100 wbc's, positive nitrates. Patient does not have symptomatology although he has neuropathy. -ceftriaxone started on admission 11/26/2023. Urine cultures growing coag-negative staph just like prior. Switch ceftriaxone to Augmentin for total 7 days on 11/27 follow-up sensitivities. # urinary retention -status: Acute -multiple etiologies considered. -voiding trial today on 11/28/2023 Chronic Conditions -ovd-kwrwscb-mkgvkcxwo diabetes mellitus: glucose monitoring ACHS, LDISS, hypoglycemia protocol -alcohol use disorder -hypertension F/E/N: saline lock IV, replace lytes as needed, diabetic diet, dietary supplements with Glucerna GI prophylaxis: Not indicated DVT prophylaxis: Holding heparin due to thrombocytopenia, SCDs Lines: Peripheral IV, San catheter inserted on admission, removed on 11/27 for voiding trial Code Status: Patient wishes to be DNR. Dispo: Stable on medical floor Functional status and anticipated needs: Therapy, disposition to acute rehab, being arranged by care coordination Medication reconciliation obtained via the following: Completed on admission [employer] -Living arrangements, functional status, significant history: Lives at home alone. Previously ambulatory, now uses wheelchair as he has had progressive weakness of the bilateral lower extremities. Kids check on him daily -Patient was screened for food insecurity, housing instability, transportation needs, utility difficulties, and interpersonal safety. Will need to go to jail/acute rehab due to debility Agents of Abuse -Illicit drug abuse: Denies -ETOH abuse: -Tobacco/nicotine: Denies -Energy drinks: Denies -A
[2023-11-29 20:13] LABS: Glucose Point of Care 256 mg/dl (65-105)
[2023-11-29] MEDS: INSULIN ASPART (*BKC) 100 UNITS/ML SUB-Q (20:37)
[2023-11-29 20:40] VITALS: BP 142/53; PULSE 97; RESP 20; TEMP 35.7; O2SAT 94
[2023-11-30 06:00] VITALS: BP 144/55; PULSE 82; RESP 18; TEMP 36; O2SAT 97
[2023-11-30 08:34] LABS: Glucose Point of Care 139 mg/dl (65-105)
[2023-11-30] MEDS: polyethylene glycoL 3350 17 GM POWD.PACK PO (08:48)
[2023-11-30] MEDS: TOLNAFTATE 1% POWDER 45 GM BTL 1 APPLIC TOPICAL ×2 (08:48→19:58)
[2023-11-30] MEDS: AMOXICILLIN/CLAVULANATE K 875-125 MG TAB 1 TABLET PO ×2 (08:48→19:54)
[2023-11-30 11:46] LABS: Glucose Point of Care 250 mg/dl (65-105)
[2023-11-30] MEDS: INSULIN ASPART (*BKC) 100 UNITS/ML SUB-Q ×2 (11:46→19:57)
[2023-11-30 14:00] VITALS: BP 124/44; PULSE 84; RESP 16; TEMP 36.6; O2SAT 100
--- NOTE | 2023-11-30 14:25 | PM.IMPN ---
Progress Note: A&P Assessment and Plan (1) UTI (urinary tract infection): Code(s): N39.0 - Urinary tract infection, site not specified Status: Acute (2) TRINIDAD (acute kidney injury): Code(s): N17.9 - Acute kidney failure, unspecified Status: Acute (3) Bilateral leg weakness: Code(s): R29.898 - Other symptoms and signs involving the musculoskeletal system Status: Acute (4) Debility: Code(s): R53.81 - Other malaise Status: Acute (5) Acute urinary retention: Code(s): R33.8 - Other retention of urine Status: Acute (6) Back pain: Code(s): M54.9 - Dorsalgia, unspecified Status: Acute (7) MDS (myelodysplastic syndrome): Code(s): D46.9 - Myelodysplastic syndrome, unspecified Status: Acute Plan 83-year-old male with PMH CKD, myelodysplastic syndrome currently receiving Azacitidine, alcohol use disorder (abstinence around 09/2023), alcoholic cirrhosis, hypertension, chronic lower extremity edema, chronic lower back pain, lumbar spondylosis, gout, polymyalgia rheumatica, polyneuropathy, history of iron overload, pancytopenia, history of colon cancer, fcs-atyknzj-iozffxwsq diabetes mellitus, hyperlipidemia. Presented to [facility] on 11/26/2023 with increasing bilateral lower extremity weakness and unable to transfer on his wheelchair. Found to have pancytopenia and abnormal urinalysis and urinary retention. # debility/weakness/polyneuropathy/lumbar spondylosis/myelodysplastic syndrome -status: Acute on chronic -MRI L-spine with moderate lumbar spondylosis. He was getting outpatient PT and OT. Feels it is not enough. Therapy evaluations here recommend acute rehab, agree. Disposition pending, being arranged by care coordinators. Complicated by UTI and possible side effect of chemo. -follows with Dr. Melo -patient has poor appetite. Diabetic diet with Glucerna shakes b.i.d. -discontinue gabapentin. It is causing him nausea. He was not taking that at home -strength continues to improve. Pending insurance authorizations. Otherwise he is okay to be discharged. # pancytopenia -status: Chronic -continue to monitor # urinary tract infection -status: Acute -abnormal urinalysis on admission demonstrating 3+ leukocyte esterase, no squamous cells, 51-100 wbc's, positive nitrates. Patient does not have symptomatology although he has neuropathy. -ceftriaxone started on admission 11/26/2023. Urine cultures growing coag-negative staph just like prior, pansensitive. Switch ceftriaxone to Augmentin for total 7 days on 11/27 # urinary retention -status: Acute, resolved -multiple etiologies considered. -voiding trial 11/28/2023 completed. -get constipation. It is now improved with MiraLax. Chronic Conditions -cnn-yojyrgj-tpysoqqdi diabetes mellitus: glucose monitoring ACHS, LDISS, hypoglycemia protocol. 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 q.a.m. and heat 324 F/E/N: saline lock IV, replace lytes as needed, diabetic diet, dietary supplements with Glucerna GI prophylaxis: Not indicated DVT prophylaxis: Holding heparin due to thrombocytopenia, SCDs Lines: Peripheral IV, San catheter inserted on admission, removed on 11/27 for voiding trial Code Status: Patient wishes to be DNR. Dispo: Stable on medical floor Functional status and anticipated needs: Therapy, disposition to acute rehab, being arranged by care coordination Medication reconciliation obtained via the following: Completed on admission [facility] -Living arrangements, functional status, significant history: Lives at home alone. Previously ambulatory, now uses wheelchair as he has had progressive weakness of the bilateral lower extremities. Kids check on him daily -Patient was screened for f
[2023-11-30] MEDS: metFORMIN HCL 500 MG TABLET 1000 MG PO (16:46)
[2023-11-30] MEDS: TORSEMIDE 10 MG TABLET PO (16:47)
[2023-11-30 17:00] LABS: Glucose Point of Care 179 mg/dl (65-105)
[2023-11-30] MEDS: LOSARTAN POTASSIUM 25 MG TABLET PO (19:54)
[2023-11-30 20:29] LABS: Glucose Point of Care 208 mg/dl (65-105)
[2023-11-30 20:45] VITALS: BP 132/41; PULSE 80; RESP 18; TEMP 36.1; O2SAT 100
[2023-12-01 05:48] VITALS: BP 106/55; PULSE 80; RESP 16; TEMP 36.4; O2SAT 98
[2023-12-01 05:56] LABS: Hematocrit 25.8 % (42.0-52.0); Hemoglobin 8.8 g/dL (14.0-18.0); Immature Platelet Fraction Pct 5.9 % (0.9-11.2); Mean Corpuscular HGB Conc 34.1 g/dl (32-36); Mean Corpuscular Hemoglobin 39.3 pg (26-34); Mean Corpuscular Volume 115.2 fl (80-100); Mean Platelet Volume 10.4 fl (7.4-10.4); Platelet Count Result 55 k/mm3 (150-375); Red Blood Count 2.24 M/mm3 (4.6-6.20); White Blood Count 3.5 K/mm3 (4.5-10.0)
[2023-12-01 06:08] LABS: Anion Gap 8 mmol/L (4-12); Blood Urea Nitrogen 21 mg/dL (9-20); Calcium 8.6 mg/dL (8.4-10.2); Carbon Dioxide 22 mmol/L (22-30); Chloride 106 mmol/L (98-107); Estimated CRCL calculation 57 ml/min; Estimated Glomerular Filt Rate > 60; Glucose 130 mg/dL (65-110); Magnesium 1.8 mg/dL (1.6-2.3); Potassium 3.9 mmol/L (3.4-5.0); Sodium 136 mmol/L (137-145)
[2023-12-01 07:36] LABS: Glucose Point of Care 135 mg/dl (65-105)
[2023-12-01] MEDS: AMOXICILLIN/CLAVULANATE K 875-125 MG TAB 1 TABLET PO ×2 (08:32→20:40)
[2023-12-01] MEDS: GLIMEPIRIDE 1 MG TABLET PO (08:32)
[2023-12-01] MEDS: TORSEMIDE 10 MG TABLET PO (08:33)
[2023-12-01] MEDS: TOLNAFTATE 1% POWDER 45 GM BTL 1 APPLIC TOPICAL ×2 (08:33→20:41)
[2023-12-01] MEDS: LOSARTAN POTASSIUM 25 MG TABLET PO ×2 (08:33→20:40)
[2023-12-01] MEDS: metFORMIN HCL 500 MG TABLET 1000 MG PO ×2 (08:33→17:13)
[2023-12-01 11:25] LABS: Glucose Point of Care 249 mg/dl (65-105)
[2023-12-01] MEDS: INSULIN ASPART (*BKC) 100 UNITS/ML SUB-Q (11:53)
[2023-12-01] MEDS: CALCIUM CARBONATE (TUMS) 500 MG (200 MG ELEMENTAL) PO (12:37)
--- NOTE | 2023-12-01 12:44 | PM.IMPN ---
Progress Note: A&P Assessment and Plan (1) UTI (urinary tract infection): Code(s): N39.0 - Urinary tract infection, site not specified Status: Acute (2) TRINIDAD (acute kidney injury): Code(s): N17.9 - Acute kidney failure, unspecified Status: Acute (3) Bilateral leg weakness: Code(s): R29.898 - Other symptoms and signs involving the musculoskeletal system Status: Acute (4) Debility: Code(s): R53.81 - Other malaise Status: Acute (5) Acute urinary retention: Code(s): R33.8 - Other retention of urine Status: Acute (6) Back pain: Code(s): M54.9 - Dorsalgia, unspecified Status: Acute (7) MDS (myelodysplastic syndrome): Code(s): D46.9 - Myelodysplastic syndrome, unspecified Status: Acute Plan 83-year-old male with PMH CKD, myelodysplastic syndrome currently receiving Azacitidine, alcohol use disorder (abstinence around 09/2023), alcoholic cirrhosis, hypertension, chronic lower extremity edema, chronic lower back pain, lumbar spondylosis, gout, polymyalgia rheumatica, polyneuropathy, history of iron overload, pancytopenia, history of colon cancer, vda-kvrpgdr-wqclpsvhe diabetes mellitus, hyperlipidemia. Presented to [facility] on 11/26/2023 with increasing bilateral lower extremity weakness and unable to transfer on his wheelchair. Found to have pancytopenia and abnormal urinalysis and urinary retention. # debility/weakness/polyneuropathy/lumbar spondylosis/myelodysplastic syndrome -status: Acute on chronic -MRI L-spine with moderate lumbar spondylosis. He was getting outpatient PT and OT. Feels it is not enough. Therapy evaluations here recommend acute rehab, agree. Disposition pending, being arranged by care coordinators. Complicated by UTI and possible side effect of chemo. -follows with Dr. Melo -patient has poor appetite. Diabetic diet with Glucerna shakes b.i.d. -discontinue gabapentin. It is causing him nausea. He was not taking that at home -strength continues to improve. Pending insurance authorizations. Otherwise he is okay to be discharged. # pancytopenia -status: Chronic -continue to monitor, he has MDS receiving Azacitidine. # urinary tract infection -status: Acute -abnormal urinalysis on admission demonstrating 3+ leukocyte esterase, no squamous cells, 51-100 wbc's, positive nitrates. Patient does not have symptomatology although he has neuropathy. -ceftriaxone started on admission 11/26/2023. Urine cultures growing coag-negative staph just like prior, pansensitive. on 11/27 switch ceftriaxone to Augmentin for total 7 days abx course. # urinary retention -status: Acute, resolved -multiple etiologies considered. -voiding trial 11/28/2023 completed. -had constipation. Miralax started. had multiple bouts of diarrhea on 11/29. holding miralax. (also restarted his home metformin on 11/29). Chronic Conditions -wco-amvirse-hejvcpdov diabetes mellitus: glucose monitoring ACHS, LDISS, hypoglycemia protocol. 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 q.a.m. on 11/29 F/E/N: saline lock IV, replace lytes as needed, diabetic diet, dietary supplements with Glucerna GI prophylaxis: Not indicated DVT prophylaxis: Holding heparin due to thrombocytopenia, SCDs, frequent ambulation if possible, with assistance. Lines: Peripheral IV, San catheter inserted on admission, removed on 11/27 for voiding trial Code Status: Patient wishes to be DNR. Dispo: Stable on medical floor Functional status and anticipated needs: Therapy, disposition to acute rehab, being arranged by care coordination Medication reconciliation obtained via the following: Completed on admission [employer] -Living arrangements, functional status, significant history: Lives at home josefina
[2023-12-01 14:00] VITALS: BP 102/37; PULSE 85; RESP 17; TEMP 36.2; O2SAT 100
[2023-12-01 14:20] VITALS: BP 123/42
[2023-12-01 16:25] LABS: Glucose Point of Care 112 mg/dl (65-105)
[2023-12-01] MEDS: SIMETHICONE 125 MG CHEW TAB PO (17:42)
[2023-12-01 20:34] LABS: Glucose Point of Care 111 mg/dl (65-105)
[2023-12-01 20:46] VITALS: BP 124/57; PULSE 80; RESP 20; TEMP 36.7; O2SAT 99
[2023-12-02 05:39] VITALS: BP 120/49; PULSE 81; RESP 18; TEMP 36.9; O2SAT 100
[2023-12-02 06:00] LABS: Basophils Percent Auto 0.9 % (0.2-1.2); Eosinophils Absolute Auto 0.3 K/mm3 (0-0.3); Eosinophils Percent Auto 7.4 % (0-4.4); Hematocrit 25.6 % (42.0-52.0); Hemoglobin 8.4 g/dL (14.0-18.0); Immature Granulocyte Absolute 0.02 K/mm3 (0.00-0.031); Immature Granulocyte Percent A 0.6 % (0-0.5); Immature Platelet Fraction Pct 5.9 % (0.9-11.2); Lymphocytes Absolute Auto 0.81 K/mm3 (0.9-3.2); Lymphocytes Percent Auto 23.9 % (18.3-44.2); Mean Corpuscular HGB Conc 32.8 g/dl (32-36); Mean Corpuscular Volume 115.8 fl (80-100); Mean Platelet Volume 10.8 fl (7.4-10.4); Monocytes Absolute Auto 0.4 K/mm3 (0.1-0.6); Monocytes Percent Auto 11.2 % (2.6-8.5); Neutrophils Absolute Auto 1.9 K/mm3 (1.3-6.7); Platelet Count Result 59 k/mm3 (150-375); Red Blood Count 2.21 M/mm3 (4.6-6.20); Red Cell Distribution Width 13.7 % (11.5-14.5); White Blood Count 3.4 K/mm3 (4.5-10.0)
[2023-12-02 06:13] LABS: Anion Gap 7 mmol/L (4-12); Blood Urea Nitrogen 25 mg/dL (9-20); Calcium 8.5 mg/dL (8.4-10.2); Carbon Dioxide 23 mmol/L (22-30); Chloride 103 mmol/L (98-107); Estimated CRCL calculation 52 ml/min; Estimated Glomerular Filt Rate > 60; Glucose 90 mg/dL (65-110); Magnesium 1.8 mg/dL (1.6-2.3); Potassium 3.9 mmol/L (3.4-5.0); Sodium 133 mmol/L (137-145)
[2023-12-02 06:45] LABS: Platelet Estimate Decreased (Adequate)
[2023-12-02 06:46] LABS: Anisocytosis 1+; Macrocytosis 2+ (NORMAL); Schistocytes None Seen
[2023-12-02 07:38] LABS: Glucose Point of Care 108 mg/dl (65-105)
[2023-12-02] MEDS: LOSARTAN POTASSIUM 25 MG TABLET PO (08:26)
[2023-12-02] MEDS: TORSEMIDE 10 MG TABLET PO (08:26)
[2023-12-02] MEDS: AMOXICILLIN/CLAVULANATE K 875-125 MG TAB 1 TABLET PO (08:26)
[2023-12-02] MEDS: metFORMIN HCL 500 MG TABLET 1000 MG PO (08:26)
[2023-12-02] MEDS: GLIMEPIRIDE 1 MG TABLET PO (08:26)
[2023-12-02] MEDS: TOLNAFTATE 1% POWDER 45 GM BTL 1 APPLIC TOPICAL (08:27)
[2023-12-02 11:36] LABS: Glucose Point of Care 153 mg/dl (65-105)
[2023-12-02 13:19] LABS: SARS-CoV-2 RNA PCR Negative (Negative)
[2023-12-02 14:00] VITALS: BP 112/43; PULSE 85; RESP 14; TEMP 35.7; O2SAT 100
--- NOTE | 2023-12-02 21:23 | PM.DS ---
DS: Admitting Diagnosis Discharge Date 12/02/23 Admitting Diagnosis Bilateral leg weakness, TRINIDAD (acute kidney injury), Debility, Acute urinary retention DS: Discharge Diagnosis Discharge Diagnosis (1) UTI (urinary tract infection): Code(s): N39.0 - Urinary tract infection, site not specified Status: Acute (2) TRINIDAD (acute kidney injury): Code(s): N17.9 - Acute kidney failure, unspecified Status: Acute (3) Bilateral leg weakness: Code(s): R29.898 - Other symptoms and signs involving the musculoskeletal system Status: Acute (4) Debility: Code(s): R53.81 - Other malaise Status: Acute (5) Acute urinary retention: Code(s): R33.8 - Other retention of urine Status: Acute (6) Back pain: Code(s): M54.9 - Dorsalgia, unspecified Status: Acute (7) MDS (myelodysplastic syndrome): Code(s): D46.9 - Myelodysplastic syndrome, unspecified Status: Acute Plan 83-year-old male with PMH CKD, myelodysplastic syndrome currently receiving Azacitidine, alcohol use disorder (abstinence around 09/2023), alcoholic cirrhosis, hypertension, chronic lower extremity edema, chronic lower back pain, lumbar spondylosis, gout, polymyalgia rheumatica, polyneuropathy, history of iron overload, pancytopenia, history of colon cancer, ejy-yoonuhv-jmmxtucow diabetes mellitus, hyperlipidemia. Presented to [facility] on 11/26/2023 with increasing bilateral lower extremity weakness and unable to transfer on his wheelchair. Found to have pancytopenia and abnormal urinalysis and urinary retention. # debility/weakness/polyneuropathy/lumbar spondylosis/myelodysplastic syndrome -status: Acute on chronic -MRI L-spine with moderate lumbar spondylosis. He was getting outpatient PT and OT. Feels it is not enough. Therapy evaluations here recommend acute rehab, agree. Disposition pending, being arranged by care coordinators. Complicated by UTI and possible side effect of chemo. -follows with Dr. Melo -patient has poor appetite. Diabetic diet with Glucerna shakes b.i.d. -discontinue gabapentin. It is causing him nausea. He was not taking that at home -strength continues to improve. Pending insurance authorizations. Otherwise he is okay to be discharged. # pancytopenia -status: Chronic -continue to monitor, he has MDS receiving Azacitidine. # urinary tract infection -status: Acute -abnormal urinalysis on admission demonstrating 3+ leukocyte esterase, no squamous cells, 51-100 wbc's, positive nitrates. Patient does not have symptomatology although he has neuropathy. -ceftriaxone started on admission 11/26/2023. Urine cultures growing coag-negative staph just like prior, pansensitive. on 11/27 switch ceftriaxone to Augmentin for total 7 days abx course. # urinary retention -status: Acute, resolved -multiple etiologies considered. -voiding trial 11/28/2023 completed. -had constipation. Miralax started. had multiple bouts of diarrhea on 11/29. holding miralax. (also restarted his home metformin on 11/29). Chronic Conditions -lgn-nobiibp-qlboyunim diabetes mellitus: glucose monitoring ACHS, LDISS, hypoglycemia protocol. 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 q.a.m. on 11/29 F/E/N: saline lock IV, replace lytes as needed, diabetic diet, dietary supplements with Glucerna GI prophylaxis: Not indicated DVT prophylaxis: Holding heparin due to thrombocytopenia, SCDs, frequent ambulation if possible, with assistance. Lines: Peripheral IV, San catheter inserted on admission, removed on 11/27 for voiding trial Code Status: Patient wishes to be DNR. Dispo: Stable on medical floor Functional status and anticipated needs: Therapy, disposition to acute rehab, being arranged by care coordination Medication reconcil
== END 2023-12-02 14:25 ==
LOC: ANHED 03:52 → ANH3MEDSUR 11-27 14:25
PROVIDERS: General Practice; Admitting Provider Internal Medicine; Emergency Provider Student in an Organized Health Care Education/Training Program; PCP Family Medicine; Visit Provider General Practice
DX: N17.9 Acute kidney failure, unspecified (principal); N39.0 Urinary tract infection, site not specified; N40.1 Benign prostatic hyperplasia with lower urinary tract symptoms; R33.8 Other retention of urine; R53.1 Weakness; Z99.3 Dependence on wheelchair; D46.9 Myelodysplastic syndrome, unspecified; G62.9 Polyneuropathy, unspecified; I12.9 Hypertensive chronic kidney disease with stage 1 through stage 4 chronic kidney disease, or unspecified chronic kidney disease; E11.22 Type 2 diabetes mellitus with diabetic chronic kidney disease; N18.32 Chronic kidney disease, stage 3b; K70.30 Alcoholic cirrhosis of liver without ascites; M48.10 Ankylosing hyperostosis [Forestier], site unspecified; M47.816 Spondylosis without myelopathy or radiculopathy, lumbar region; D61.818 Other pancytopenia; R53.81 Other malaise; M10.9 Gout, unspecified; E78.2 Mixed hyperlipidemia; M35.3 Polymyalgia rheumatica; E11.42 Type 2 diabetes mellitus with diabetic polyneuropathy; K76.6 Portal hypertension; Z11.52 Encounter for screening for COVID-19; Z92.21 Personal history of antineoplastic chemotherapy; Z90.49 Acquired absence of other specified parts of digestive tract; Z85.038 Personal history of other malignant neoplasm of large intestine; Z79.84 Long term (current) use of oral hypoglycemic drugs
CPT/HCPCS: 36415; 70450; 72131; 72148; 80048; 80053; 81001; 82550; 82948; 83735; 84100; 84443; 84484; 85025; 85027; 85055; 87077; 87086; 87088; 87181; 87635; 93005; 96361; 96365; 96372; 97110; 97116; 97162; 97166; 97530; 97535; 99285; A9270; G0378; J0696; J1644; J1815; J7030; J7040

== ENCOUNTER 2023-12-03 16:46 | Inpatient (IN) | payer OTHER, SELFPAY ==
--- NOTE | ~2023-12-03 | MR_ITS ---
EXAMINATION: MR brain/brain stem wo con DATE: 12/10/2023 14:09 INDICATION: Left hemiparesis. TECHNIQUE: Magnetic resonance imaging (MRI) of the brain and brainstem was performed without intraven ous contrast. COMPARISON: Head CT 11/26/2023 FINDINGS: There are scattered areas of nonspecific increased T2-weighted signal intensity in the cere bral white matter, which is within normal limits for the patient's age. There is no intracranial hemo rrhage, acute infarction, or abnormal intracranial mass lesion. The ventricles are normal in size. Th ere is a small left mastoid effusion. There are likely changes of ocular lens replacement surgeries. There is mild mucosal thickening in the paranasal sinuses. IMPRESSION: 1. Normal aging brain. Reviewed, dictated and finalized at location A. IMPRESSION: 1. Normal aging brain.
--- NOTE | ~2023-12-03 | MR_ITS ---
MR cervical spine wo con Ordering provider: Darwin Anthony MD History: 83 years Male with . Left-sided weakness . Comparison: None. Technique: MRI cervical spine without contrast. FINDINGS: CERVICAL SPINAL CORD/CRANIAL CERVICAL JUNCTION: Normal in signal and caliber. CERVICAL VERTEBRAL BODIES: Normal height and alignment. Normal marrow signal. DISK SPACES: Narrowing of the disc C6-C7 C2-C3: No stenosis. C3-C4: No stenosis. Narrowing of the right intervertebral foramen. C4-C5: Moderate spinal canal stenosis secondary to broad based disc bulge. Bilateral narrowing of th e foramina with root compression. C5-C6: Mild spinal canal stenosis secondary to broad based disc bulge. Bilateral narrowing of the fo ramina with root compression. C6-C7: Moderate spinal canal stenosis secondary to broad based disc bulge. Bilateral narrowing of th e foramina with root compression more on the left side. C7-T1: No stenosis. VISUALIZED PARASPINOUS SOFT TISSUES: Normal. IMPRESSION: 1. No acute osseous abnormalities. 2. Multilevel degenerative disc disease with variable degrees of spinal canal stenosis, intervertebr al foraminal narrowing and the root compression. Changes seenw/cranial Reviewed, dictated and finalized at location A. IMPRESSION: 1. No acute osseous abnormalities. 2. Multilevel degenerative disc disease with variable degrees of spinal canal stenosis, intervertebral foraminal narrowing and the root compression. Changes seenw/cranial
--- NOTE | ~2023-12-03 | XR_ITS ---
EXAMINATION: XR chest 1V portable Exam Date/Time: 12/03/2023 19:22 CDT HISTORY: fever Comparison: 07/29/2023. RESULT: Lines, tubes, and devices: None. Lungs and pleura: Clear. Cardiomediastinal silhouette: Stable. Other: No acute osseous or upper abdominal finding. IMPRESSION: No acute cardiopulmonary process. Reviewed, dictated and finalized at location K.
[2023-12-03 16:48] VITALS: BP 104/47; PULSE 95; RESP 16; TEMP 36.9; O2SAT 100
[2023-12-03 18:39] VITALS: BP 124/45; PULSE 83; RESP 20; TEMP 37; O2SAT 98
[2023-12-03 20:22] LABS: Basophils Percent Auto 0.6 % (0.2-1.2); Eosinophils Absolute Auto 0.1 K/mm3 (0-0.3); Hematocrit 26.9 % (42.0-52.0); Hemoglobin 9.2 g/dL (14.0-18.0); Immature Granulocyte Absolute 0.03 K/mm3 (0.00-0.031); Immature Granulocyte Percent A 0.9 % (0-0.5); Immature Platelet Fraction Pct 5.7 % (0.9-11.2); Lymphocytes Absolute Auto 0.45 K/mm3 (0.9-3.2); Mean Corpuscular HGB Conc 34.2 g/dl (32-36); Mean Corpuscular Hemoglobin 39.8 pg (26-34); Mean Corpuscular Volume 116.5 fl (80-100); Mean Platelet Volume 10.8 fl (7.4-10.4); Monocytes Absolute Auto 0.4 K/mm3 (0.1-0.6); Monocytes Percent Auto 11.3 % (2.6-8.5); Neutrophils Absolute Auto 2.5 K/mm3 (1.3-6.7); Neutrophils Percent Auto 72.2 % (45.5-73.1); Platelet Count Result 70 k/mm3 (150-375); Red Blood Count 2.31 M/mm3 (4.6-6.20); Red Cell Distribution Width 14.5 % (11.5-14.5); White Blood Count 3.5 K/mm3 (4.5-10.0)
[2023-12-03 20:27] VITALS: BP 130/53; PULSE 78; RESP 18; O2SAT 99
[2023-12-03 20:30] LABS: Lactic Acid Reflex 1.8 mmol/L (0.7-2.0)
[2023-12-03 20:33] LABS: Alanine Aminotransferase 35 U/L (6-50); Alkaline Phosphatase 99 U/L (38-126); Anion Gap 9 mmol/L (4-12); Aspartate Amino Transferase 50 U/L (17-59); Bilirubin,Total 1.3 mg/dL (0.2-1.3); Blood Urea Nitrogen 27 mg/dL (9-20); Calcium 8.7 mg/dL (8.4-10.2); Carbon Dioxide 22 mmol/L (22-30); Chloride 103 mmol/L (98-107); Estimated CRCL calculation 41 ml/min; Estimated Glomerular Filt Rate 48; Glucose 116 mg/dL (65-110); Potassium 4.1 mmol/L (3.4-5.0); Sodium 134 mmol/L (137-145)
[2023-12-03 21:03] LABS: Anisocytosis 1+; Macrocytosis 1+ (NORMAL); Platelet Estimate Decreased (Adequate); Schistocytes None Seen
[2023-12-03 21:25] LABS: Influenza A QL RT-PCR Negative (Negative); Influenza B QL RT-PCR Negative (Negative); RSV RNA, RT-PCR Negative (Negative); SARS-CoV-2 RNA PCR Positive (Negative)
[2023-12-03 21:42] LABS: Add Urine Microscopic? NO; Appearance Urine Clear (Clear); Bilirubin Urine Negative (Negative); Blood Urine Negative (Negative); Color Urine Yellow (Yellow); Glucose Urine UA Negative (Negative); Ketones Urine Negative (Negative); Leukocyte Esterase Ur Negative LEU/UL (Negative); Nitrate Urine Negative (Negative); Protein Urine Negative (Negative); Specific Grav Ur 1.013 (1.001-1.035); Urobilinogen Urine 0.2 mg/dL (<2.0); pH Urine 5.5 (5.0-9.0)
[2023-12-03 21:49] VITALS: BP 147/59; PULSE 82; RESP 18; O2SAT 100
--- NOTE | 2023-12-03 22:27 | ED.GENADULT ---
HPI - General Adult General Chief complaint: Fever Stated complaint: fever Time Seen by Provider: 12/03/23 19:05 History of Present Illness HPI narrative: Patient mode of emergency department with chief complaint of fever. Patient was recently discharged from hospital after having a urinary tract infection patient today had a temperature at the assisted living facility but states that he is feels a little nauseated denies any other pain reports he feels better at this point. Related Data Home Medications Medication Instructions Recorded Confirmed omega 3-qte-uvz-fish oil 300 1 cap PO DAILY 06/04/23 11/26/23 mg-1,000 mg capsule (Fish Oil) vit A 7,160 unit-vit C 113 mg-vit 1 tablet PO DAILY 06/04/23 11/26/23 E 100 dgop-lbiv-mesxqi tablet vitamin B complex (B 1 tablet PO DAILY 06/04/23 11/26/23 Complex-Vitamin B12 tablet) glimepiride 1 mg tablet 1 mg PO QAM 11/26/23 11/26/23 losartan 25 mg tablet 25 mg PO BID 11/26/23 11/26/23 metformin 1,000 mg tablet 1,000 mg PO BID 11/26/23 11/26/23 Allergies Allergy/AdvReac Type Severity Reaction Status Date / Time EUGENE Inhibitors Allergy Intermediate cough Verified 11/22/23 11:05 shellfish derived Allergy Mild Itching Verified 11/22/23 11:05 AND RASH Review of Systems Review of Systems: A 10 system review of systems was completed on the patient and is negative except for what is stated in the HPI. Nursing and ancillary documentation was reviewed. [facility] Past Medical History Medical History Acute calculous cholecystitis Acute left flank pain Alcohol abuse Alcohol abuse Alcoholic cirrhosis of liver without ascites Arthritis Balanitis Benign reactive hypertension Blood glucose elevated Cholelithiasis NOS Chronic kidney disease, stage 3 (moderate) Chronic kidney disease, stage II (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 Congestive splenomegaly Cough Counseling for living will Cyst of kidney, acquired Dietary counseling and surveillance (08/28/18) DISH (diffuse idiopathic skeletal hyperostosis) DISH (diffuse idiopathic skeletal hyperostosis) Diverticulosis DM type 2 causing CKD stage 3 Elevated lactic acid level Elevated liver enzymes Encounter for other general examination Essential (primary) hypertension Fatty liver Gout, unspecified Hemochromatosis History of colon cancer 2009 s/p right hemicolectomy and chemotherapy History of colon cancer in adulthood Idiopathic chronic gout Leukocytosis (leucocytosis) Macrocytic anemia Malignant (primary) neoplasm, unspecified Mixed hyperlipidemia Neuropathy associated with cancer PMR (polymyalgia rheumatica) Pneumonia Polyneuropathy 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assified elsewhere Portal hypertension Right renal mass Rotator cuff tear arthropathy Sepsis Shoulder arthritis SIRS (systemic inflammatory response syndrome) Thrombocytopenia Ventral hernia without obstruction or gangrene Surgical History Surgical History History of colon resection 2009 Family History Family History Sibling Family history of malignant neoplasm of testis Malignant neoplasm of prostate Family history of arthritis Patient's brother is Hypertension Family history of gout Social History Social History Social History: Single Smoking status: Never smoker Second hand tobacco smoke exposure: No Alcohol intake: never Alcohol use details: 2-3 cans/week Substance use: never Substance use type: does not use Do You Feel Safe in your Home?: Yes Lack of Transportation: No Lack of Food: Never True Current Housing: I Have Housing Concerned About Future Housing: No Difficulty Paying Gas/Elec
--- NOTE | 2023-12-03 22:54 | PC.NURSE ---
This RN attempted to get pt in wheelchair to exit due to discharge. Pt stated he has some neuropathy in his legs and that he was weight . This RN got OLMAN Huber to come help. Us nurses got pt off bed and attempted to get him in wheelchair when we noticed pt was unable to move legs and felt pt slowly going down. So we sat pt on ground before he would fall and got extra set of hands. We got Pauline Mccauley, Pauline Portillo, Pauline English, Dr. Cantu, and Dr. Zazueta to help get pt back in bed with both railings up in lowest position. Dr. Zazueta pt is now going to be admitted due to weakness.
--- NOTE | 2023-12-03 23:30 | PC.NURSE ---
was called into the patient room to assist getting the patient to a wheelchair, patient was already moving himself with his upper body to the edge of the bed. went to assist OLMAN Rosario with movement and patient was unable to move his legs. patient stated that he couldn't move his legs and that is when OLMAN Rosario and myself lowered patient to the ground as he was unable to be moved back to a stable position sitting in the bed. Other staff called in to assist the patient back to bed. patient noted to be unable to move lower limbs even minimally. patient states that this has been getting worse as the night has gone on.
[2023-12-03] MEDS: SODIUM CHLORIDE 0.9% IV 1,000 ML 75 ML IV CONT (23:52)
[2023-12-04] VITALS (8 sets, daily range): BP systolic 123–159; BP diastolic 43–89; PULSE 77–84; RESP 16–18; TEMP 36.9–38.4; O2SAT 96–100; BMI 32.8
--- NOTE | 2023-12-04 00:49 | ADMGEN ---
This patient, Robby Graves, was admitted to Medical Room 347-01. Patient/family oriented to hospital policies and general routines including ID bracelet, bed and alarms, visiting hours, pain management, procedures, bathroom and other care routines, personal items, smoking policy, room service/diet, and visiting hours. Information on how to activate the Rapid Response Team has been discussed. Patient/Family are encouraged to report perceived risks to care and to ask questions if they do not understand what they are told or what they should do.
--- NOTE | 2023-12-04 02:42 | PM.IMHP ---
H&P: HPI History of Present Illness Date/Time: 12/04/23 02:42 Chief Complaint: Generalized weakness Narrative: Patient is an 83-year-old male with past medical history of CKD3B, myelodysplastic syndrome, history of alcohol use disorder, alcohol cirrhosis, central hypertension, chronic lower extremity edema, polymyalgia rheumatica, history of colon cancer, vpo-grpoaib-isvilvwjo diabetes, hyperlipidemia presents to ED with complaints of weakness. Patient was discharged 12/01 after being treated for UTI and debility. At the nursing facility he was found to have a T-max 102?. He was brought to ED for further evaluation. During hospitalization he also had urinary retention which may be associated with constipation. In the ED: In the ED patient was found to have COVID-19 positive which is new compared to recent test during last hospitalization. Patient treated supportive care. With patient being on room air he is not receiving any other treatment for COVID-19. There having significant difficulty with ambulating and will not be able to go back to nursing facility today. Patient being admitted for debility. Review of Systems Review of Systems: Constitutional: He endorses fever and chills, fatigue. No Night Sweats ENT/Mouth: No Hearing Changes, No Ear Pain, No Nasal Congestion, No Sinus Pain, No Hoarseness, No sore throat, No Rhinorrhea, No Swallowing Difficulty Eyes: No Eye Pain, No Redness, No Vision Changes Cardiovascular: No Chest Pain, No Palpitations, No Dyspnea on Exertion, No Orthopnea, No Claudication, No Edema Respiratory: He endorses mild nonproductive cough Gastrointestinal: No Nausea, No Vomiting, No Diarrhea, No Constipation, No Abdominal Pain, No Heartburn, No Hematochezia, No Melena Genitourinary: No Dysuria, No Urinary Frequency, No Hematuria, No Urinary Incontinence, No Urgency Musculoskeletal: No Arthralgias, No Myalgias, No Joint Swelling, No Joint Stiffness, No Back Pain Skin: No Skin Lesions, No Pruritis, No Hair Changes Neuro: Endorses bilateral lower extremity weakness. No Numbness, No Paresthesias, No Loss of Consciousness, No Syncope, No Dizziness, No Headache Psych: No Anxiety/Panic, No Depression, No Insomnia Heme: No Bruising, No Bleeding Lymph: No Adenopathy Endocrine: No Polyuria, No Polydipsia, No Temperature Intolerance [facility] Past Medical History Medical History Acute calculous cholecystitis Acute left flank pain Alcohol abuse Alcohol abuse Alcoholic cirrhosis of liver without ascites Arthritis Balanitis Benign reactive hypertension Blood glucose elevated Cholelithiasis NOS Chronic kidney disease, stage 3 (moderate) Chronic kidney disease, stage II (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 Congestive splenomegaly Cough Counseling for living will Cyst of kidney, acquired Dietary counseling and surveillance (08/28/18) DISH (diffuse idiopathic skeletal hyperostosis) DISH (diffuse idiopathic skeletal hyperostosis) Diverticulosis DM type 2 causing CKD stage 3 Elevated lactic acid level Elevated liver enzymes Encounter for other general examination Essential (primary) hypertension Fatty liver Gout, unspecified Hemochromatosis History of colon cancer 2009 s/p right hemicolectomy and chemotherapy History of colon cancer in adulthood Idiopathic chronic gout Leukocytosis (leucocytosis) Macrocytic anemia Malignant (primary) neoplasm, unspecified Mixed hyperlipidemia Neuropathy associated with cancer PMR (polymyalgia rheumatica) Pneumonia Polyneuropathy 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
[2023-12-04 08:38] LABS: Glucose Point of Care 129 mg/dl (65-105)
[2023-12-04] MEDS: OMEGA 3 POLYUNSAT FATTY ACIDS 1 GM CAP PO (09:23)
[2023-12-04] MEDS: metFORMIN HCL 500 MG TABLET 1000 MG PO ×2 (09:23→17:31)
[2023-12-04] MEDS: OPTI-GEN TAB 1 TABLET PO (09:23)
[2023-12-04] MEDS: GLIMEPIRIDE 1 MG TABLET PO (09:23)
[2023-12-04] MEDS: VITAMIN B COMPLEX CAPSULE 1 CAP PO (09:24)
[2023-12-04] MEDS: TOLNAFTATE 1% POWDER 45 GM BTL 1 APPLIC TOPICAL ×2 (09:24→20:11)
[2023-12-04 12:12] LABS: Glucose Point of Care 170 mg/dl (65-105)
[2023-12-04] MEDS: SODIUM CHLORIDE 0.9% IV 1,000 ML 75 ML IV CONT (12:14)
[2023-12-04 16:58] LABS: Glucose Point of Care 122 mg/dl (65-105)
--- NOTE | 2023-12-04 18:00 | PM.IMPN ---
Progress Note: A&P Assessment and Plan (1) COVID-19: Code(s): U07.1 - COVID-19 Status: Acute Plan # COVID-19 -COVID-19 positive. -discussed the case with ID who agrees with symptomatic management. -continue supportive care, Tylenol for fever -Patient likely acquired COVID-19 during most recent hospitalization -supplement oxygen as needed, goal O2 greater than 90%, currently on room air -chest x-ray no acute finding -recently completed antibiotics for UTI with Rocephin and then Augmentin # debility -acute worsening of weakness likely secondary to COVID-19 -unclear how much worse his debility is after 1 day at [facility] -PT and OT consult # acute kidney injury -creatinine elevated 1.4, baseline 1.0-1.1 -continue normal saline 75 cc/hr, will give fluids overnight -held diuretic, losartan # chronic conditions -wlz-jxcvklq-wgopbwmxp type 2 diabetes: Continue metformin, Amaryl, sliding scale insulin, Accu-Cheks a.c. HS, hypoglycemia protocol -supplements: May continue B complex, opti-gen -intertrigo: Continue tolnaftate BID -myelodysplastic syndrome -chronic pancytopenia -recent urinary retention resolved after voiding trial -history of alcohol cirrhosis, alcohol use disorder: Currently sober Diet: Diabetic diet with Glucerna DVT prophylaxis: SCDs, no chemoprophylaxis with thrombocytopenia Code status: DNR Disposition: Likely back to nursing facility in 1-2 days, patient admitted under observation Date of service 12/04/2023 Subjective Date/time seen: 12/04/23 18:00 Interval history: Patient is currently doing well. no signs of fever or chills or cough or shortness of breath. Review of Systems Review of Systems: Constitutional: He endorses fever and chills, fatigue. No Night Sweats ENT/Mouth: No Hearing Changes, No Ear Pain, No Nasal Congestion, No Sinus Pain, No Hoarseness, No sore throat, No Rhinorrhea, No Swallowing Difficulty Eyes: No Eye Pain, No Redness, No Vision Changes Cardiovascular: No Chest Pain, No Palpitations, No Dyspnea on Exertion, No Orthopnea, No Claudication, No Edema Respiratory: He endorses mild nonproductive cough Gastrointestinal: No Nausea, No Vomiting, No Diarrhea, No Constipation, No Abdominal Pain, No Heartburn, No Hematochezia, No Melena Genitourinary: No Dysuria, No Urinary Frequency, No Hematuria, No Urinary Incontinence, No Urgency Musculoskeletal: No Arthralgias, No Myalgias, No Joint Swelling, No Joint Stiffness, No Back Pain Skin: No Skin Lesions, No Pruritis, No Hair Changes Neuro: Endorses bilateral lower extremity weakness. No Numbness, No Paresthesias, No Loss of Consciousness, No Syncope, No Dizziness, No Headache Psych: No Anxiety/Panic, No Depression, No Insomnia Heme: No Bruising, No Bleeding Lymph: No Adenopathy Endocrine: No Polyuria, No Polydipsia, No Temperature Intolerance Exam Narrative: - GENERAL: Pleasant elderly male in no acute distress. Well-nourished. - EYES: EOMI. Anicteric. - HENT: Moist mucous membranes. - LUNGS: Clear to auscultation bilaterally, no wheezing, rhonchi, or rales. Nonlabored respiration - CARDIOVASCULAR: Regular rate and rhythm. No murmur. No JVD. - ABDOMEN: Soft, non-tender and non-distended. No palpable masses. - EXTREMITIES: No edema. Peripheral pulses 2+. Non-tender. - NEUROLOGIC: No focal neurological deficits. CN II-XII grossly intact. - PSYCHIATRIC: Awake, Alert and oriented x 3. Appropriate mood and affect. - SKIN: No rashes or lesions. Warm. - LYMPH: No cervical lymphadenopathy. Objective Data Vital Signs Vital Signs: Vital Signs - 24 hr 12/03/23 18:39 12/03/23 20:27 12/03/23 21:49 Temperature 98.6 F Pulse Rate 83 78 82 Respiratory Rate 20 18 18 Blood Pressure 124/45 L 130/53 L 147/59 H Pulse Oximetry 98 99 100 Oxygen Delivery 12/04/23 01:19 12/04/23 05:56 12/04/23 08:00 Temperature 98.4 F 98.6 F Pulse Rate 77 79 Respiratory Rate 18 16 Blood Pressure 148/63 H 138/43 L Pulse O
[2023-12-04] MEDS: ACETAMINOPHEN 325 MG TABLET 650 MG PO (20:19)
[2023-12-04 20:29] LABS: Glucose Point of Care 149 mg/dl (65-105)
[2023-12-05] MEDS: SODIUM CHLORIDE 0.9% IV 1,000 ML 75 ML IV CONT ×2 (01:13→17:58)
[2023-12-05 06:00] VITALS: BP 127/47; PULSE 72; RESP 16; TEMP 36.9; O2SAT 96
[2023-12-05 08:00] LABS: Glucose Point of Care 115 mg/dl (65-105)
[2023-12-05 08:55] LABS: Hemoglobin 8.1 g/dL (14.0-18.0); Immature Platelet Fraction Pct 4.2 % (0.9-11.2); Mean Corpuscular HGB Conc 33.8 g/dl (32-36); Mean Corpuscular Hemoglobin 39.5 pg (26-34); Mean Corpuscular Volume 117.1 fl (80-100); Mean Platelet Volume 10.6 fl (7.4-10.4); Platelet Count Result 70 k/mm3 (150-375); Red Blood Count 2.05 M/mm3 (4.6-6.20); Red Cell Distribution Width 14.6 % (11.5-14.5); White Blood Count 2.7 K/mm3 (4.5-10.0)
[2023-12-05 09:03] LABS: Alanine Aminotransferase 30 U/L (6-50); Albumin Level 2.4 g/dL (3.5-5.1); Alkaline Phosphatase 70 U/L (38-126); Anion Gap 8 mmol/L (4-12); Aspartate Amino Transferase 47 U/L (17-59); Bilirubin,Total 1.1 mg/dL (0.2-1.3); Blood Urea Nitrogen 21 mg/dL (9-20); Calcium 8.1 mg/dL (8.4-10.2); Carbon Dioxide 20 mmol/L (22-30); Chloride 105 mmol/L (98-107); Estimated CRCL calculation 51 ml/min; Estimated Glomerular Filt Rate > 60; Glucose 110 mg/dL (65-110); Potassium 4.3 mmol/L (3.4-5.0); Sodium 133 mmol/L (137-145)
[2023-12-05] MEDS: VITAMIN B COMPLEX CAPSULE 1 CAP PO (09:03)
[2023-12-05] MEDS: GLIMEPIRIDE 1 MG TABLET PO (09:03)
[2023-12-05] MEDS: OPTI-GEN TAB 1 TABLET PO (09:03)
[2023-12-05] MEDS: OMEGA 3 POLYUNSAT FATTY ACIDS 1 GM CAP PO (09:03)
[2023-12-05] MEDS: TOLNAFTATE 1% POWDER 45 GM BTL 1 APPLIC TOPICAL ×2 (09:03→21:28)
[2023-12-05] MEDS: metFORMIN HCL 500 MG TABLET 1000 MG PO ×2 (09:04→17:59)
[2023-12-05 12:08] LABS: Glucose Point of Care 148 mg/dl (65-105)
[2023-12-05 14:00] VITALS: BP 148/54; PULSE 75; RESP 18; TEMP 36.6; O2SAT 99
--- NOTE | 2023-12-05 15:52 | PM.IMPN ---
Progress Note: A&P Assessment and Plan (1) COVID-19: Code(s): U07.1 - COVID-19 Status: Acute Plan # COVID-19 -COVID-19 positive. -discussed the case with ID who agrees with symptomatic management. -continue supportive care, Tylenol for fever -Patient likely acquired COVID-19 during most recent hospitalization -supplement oxygen as needed, goal O2 greater than 90%, currently on room air -chest x-ray no acute finding -recently completed antibiotics for UTI with Rocephin and then Augmentin # debility -acute worsening of weakness likely secondary to COVID-19 -unclear how much worse his debility is after 1 day at SNF -PT and OT consult -discussed the case with PT. -patient is functionally declined due to COVID. -patient will benefit from rehab upon discharge. # acute kidney injury -creatinine elevated 1.4, baseline 1.0-1.1 -continue normal saline 75 cc/hr, will give fluids overnight -held diuretic, losartan # chronic conditions -mfl-quwwzcl-zojgyvlue type 2 diabetes: Continue metformin, Amaryl, sliding scale insulin, Accu-Cheks a.c. HS, hypoglycemia protocol -supplements: May continue B complex, opti-gen -intertrigo: Continue tolnaftate BID -myelodysplastic syndrome -chronic pancytopenia -recent urinary retention resolved after voiding trial -history of alcohol cirrhosis, alcohol use disorder: Currently sober Diet: Diabetic diet with Glucerna DVT prophylaxis: SCDs, no chemoprophylaxis with thrombocytopenia Code status: DNR Disposition: Likely back to nursing facility in 1-2 days, patient admitted under observation Date of service 12/04/2023 Subjective Date/time seen: 12/05/23 15:52 Interval history: No acute events overnight. Patient reports of no cough chills or shortness of breath. Physical therapy was present during the evaluation and reports patient is weak to get out of the bed. Patient would definitely benefit from rehab upon discharge.. Review of Systems Review of Systems: Constitutional: He endorses fever and chills, fatigue. No Night Sweats ENT/Mouth: No Hearing Changes, No Ear Pain, No Nasal Congestion, No Sinus Pain, No Hoarseness, No sore throat, No Rhinorrhea, No Swallowing Difficulty Eyes: No Eye Pain, No Redness, No Vision Changes Cardiovascular: No Chest Pain, No Palpitations, No Dyspnea on Exertion, No Orthopnea, No Claudication, No Edema Respiratory: He endorses mild nonproductive cough Gastrointestinal: No Nausea, No Vomiting, No Diarrhea, No Constipation, No Abdominal Pain, No Heartburn, No Hematochezia, No Melena Genitourinary: No Dysuria, No Urinary Frequency, No Hematuria, No Urinary Incontinence, No Urgency Musculoskeletal: No Arthralgias, No Myalgias, No Joint Swelling, No Joint Stiffness, No Back Pain Skin: No Skin Lesions, No Pruritis, No Hair Changes Neuro: Endorses bilateral lower extremity weakness. No Numbness, No Paresthesias, No Loss of Consciousness, No Syncope, No Dizziness, No Headache Psych: No Anxiety/Panic, No Depression, No Insomnia Heme: No Bruising, No Bleeding Lymph: No Adenopathy Endocrine: No Polyuria, No Polydipsia, No Temperature Intolerance Exam Narrative: - GENERAL: Pleasant elderly male in no acute distress. Well-nourished. - EYES: EOMI. Anicteric. - HENT: Moist mucous membranes. - LUNGS: Clear to auscultation bilaterally, no wheezing, rhonchi, or rales. Nonlabored respiration - CARDIOVASCULAR: Regular rate and rhythm. No murmur. No JVD. - ABDOMEN: Soft, non-tender and non-distended. No palpable masses. - EXTREMITIES: No edema. Peripheral pulses 2+. Non-tender. - NEUROLOGIC: No focal neurological deficits. CN II-XII grossly intact. - PSYCHIATRIC: Awake, Alert and oriented x 3. Appropriate mood and affect. - SKIN: No rashes or lesions. Warm. - LYMPH: No cervical lymphadenopathy. Objective Data Vital Signs Vital Signs: Vital Signs - 24 hr 12/04/23 20:19 12/04/23 20:43 12/04/23 21:19 Temperature 101.1 F H 101.1 F H 99.2
[2023-12-05 17:24] LABS: Glucose Point of Care 101 mg/dl (65-105)
[2023-12-05 20:41] LABS: Glucose Point of Care 123 mg/dl (65-105)
[2023-12-05 21:32] VITALS: BP 152/54; PULSE 80; RESP 18; TEMP 37.1; O2SAT 97
[2023-12-06 03:17] LABS: Toxigenic C. Diff POSITIVE (NEGATIVE)
[2023-12-06 05:57] LABS: Hematocrit 26.9 % (42.0-52.0); Hemoglobin 8.9 g/dL (14.0-18.0); Mean Corpuscular HGB Conc 33.1 g/dl (32-36); Mean Corpuscular Hemoglobin 40.5 pg (26-34); Mean Corpuscular Volume 122.3 fl (80-100); Mean Platelet Volume 11.5 fl (7.4-10.4); Platelet Count Result 85 k/mm3 (150-375); Red Cell Distribution Width 14.5 % (11.5-14.5); White Blood Count 2.6 K/mm3 (4.5-10.0)
[2023-12-06 06:00] VITALS: BP 141/55; PULSE 80; RESP 18; TEMP 36.1; O2SAT 97
[2023-12-06 06:07] LABS: Alanine Aminotransferase 30 U/L (6-50); Albumin Level 2.4 g/dL (3.5-5.1); Alkaline Phosphatase 76 U/L (38-126); Anion Gap 6 mmol/L (4-12); Aspartate Amino Transferase 44 U/L (17-59); Blood Urea Nitrogen 19 mg/dL (9-20); Carbon Dioxide 20 mmol/L (22-30); Chloride 107 mmol/L (98-107); Estimated CRCL calculation 56 ml/min; Estimated Glomerular Filt Rate > 60; Glucose 105 mg/dL (65-110); Sodium 133 mmol/L (137-145)
[2023-12-06] MEDS: VANCOMYCIN HCL 125 MG ORAL CAPSULE PO ×3 (06:32→17:38)
[2023-12-06 08:44] LABS: Glucose Point of Care 99 mg/dl (65-105)
[2023-12-06] MEDS: ENOXAPARIN 30 MG/0.3 ML SYRINGE SUB-Q (09:04)
[2023-12-06] MEDS: OMEGA 3 POLYUNSAT FATTY ACIDS 1 GM CAP PO (09:05)
[2023-12-06] MEDS: OPTI-GEN TAB 1 TABLET PO (09:05)
[2023-12-06] MEDS: VITAMIN B COMPLEX CAPSULE 1 CAP PO (09:08)
[2023-12-06] MEDS: TOLNAFTATE 1% POWDER 45 GM BTL 1 APPLIC TOPICAL ×2 (09:09→21:00)
[2023-12-06 09:25] VITALS: RESP 18; O2SAT 97
[2023-12-06] MEDS: SODIUM CHLORIDE 0.9% IV 1,000 ML 75 ML IV CONT (09:48)
[2023-12-06 12:09] LABS: Glucose Point of Care 143 mg/dl (65-105)
--- NOTE | 2023-12-06 14:34 | PM.IMPN ---
Progress Note: A&P Assessment and Plan (1) COVID-19: Code(s): U07.1 - COVID-19 Status: Acute Plan # COVID-19 -COVID-19 positive. -discussed the case with ID who agrees with symptomatic management. -continue supportive care, Tylenol for fever -Patient likely acquired COVID-19 during most recent hospitalization -supplement oxygen as needed, goal O2 greater than 90%, currently on room air -chest x-ray no acute finding -recently completed antibiotics for UTI with Rocephin and then Augmentin # C diff infection: Oral vancomycin # debility -acute worsening of weakness likely secondary to COVID-19 -unclear how much worse his debility is after 1 day at SNF -PT and OT consult -discussed the case with PT. -patient is functionally declined due to COVID. -patient will benefit from rehab upon discharge. # acute kidney injury -creatinine elevated 1.4, baseline 1.0-1.1 -continue normal saline 75 cc/hr, -held diuretic, losartan # opy-btqghsl-hdwsannbz type 2 diabetes: Hold metformin, Amaryl, continue sliding scale insulin, Accu-Cheks a.c. HS, hypoglycemia protocol # intertrigo: Continue tolnaftate BID # myelodysplastic syndrome # chronic pancytopenia # recent urinary retention resolved after voiding trial. Patient required straight catheterization x2 and San has been replaced # history of alcohol cirrhosis, alcohol use disorder: Currently sober Diet: Diabetic diet with Glucerna DVT prophylaxis: SCDs, no chemoprophylaxis with thrombocytopenia Code status: DNR Disposition: From nursing facility which he was recently placed in PT OT to see Subjective Date/time seen: 12/06/23 14:34 Interval history: Feels weak continues to have diarrhea. No shortness of breath or chest pain. Review of Systems Review of Systems: All systems reviewed & are unremarkable except as noted in HPI and below Exam Narrative: - GENERAL: Pleasant elderly male in no acute distress. Well-nourished. Generalized weakness - EYES: EOMI. Anicteric. - HENT: Moist mucous membranes. - LUNGS: Clear to auscultation bilaterally, no wheezing, rhonchi, or rales. Nonlabored respiration - CARDIOVASCULAR: Regular rate and rhythm. No murmur. No JVD. - ABDOMEN: Soft, non-tender and non-distended. No palpable masses. - EXTREMITIES: No edema. Peripheral pulses 2+. Non-tender. - NEUROLOGIC: No focal neurological deficits. CN II-XII grossly intact. - PSYCHIATRIC: Awake, Alert and oriented x 3. Appropriate mood and affect. - SKIN: No rashes or lesions. Warm. - LYMPH: No cervical lymphadenopathy. Objective Data Vital Signs Vital Signs: Vital Signs - 24 hr 12/05/23 20:00 12/05/23 21:32 12/06/23 06:00 Temperature 98.8 F 97.0 F L Pulse Rate 80 80 Respiratory Rate 18 18 Blood Pressure 152/54 H 141/55 H Pulse Oximetry 97 97 Oxygen Delivery Room Air Intake/Output Intake/Output: Intake & Output 12/03/23 12/04/23 12/05/23 12/06/23 23:59 23:59 23:59 23:59 Intake Total 2657.5 3313.7 1720 Output Total 1550 1300 1450 Balance 1107.5 2013.7 270 Meds/Results Medications: Active Medications Generic Name Dose Route Start Last Admin Trade Name Freq PRN Reason Stop Dose Admin Acetaminophen 650 mg 12/03/23 23:00 12/04/23 20:19 Acetaminophen 325 Mg Tablet PO 650 mg Q4H PRN Administration Mild Pain (1-3) or Fever Dextrose 12.5 gm 12/04/23 02:41 Dextrose 50% 25 Gm/50 Ml Syringe IV PUSH PRN PRN Hypoglycemia Protocol Enoxaparin Sodium 30 mg 12/05/23 09:00 12/06/23 09:04 Enoxaparin 30 Mg/0.3 Ml Syringe SUB-Q 30 mg DAILY GOMEZ Administration Fish Oil 1 gm 12/04/23 09:00 12/06/23 09:05 Tofte 3 Polyunsat Fatty Acids 1 Gm Cap PO 1 gm DAILY GOMEZ Administration Glimepiride 1 mg 12/04/23 08:00 12/06/23 09:08 Glimepiride 1 Mg Tablet PO Not Given DAILY@0800 GOMEZ Glucagon 1 mg 12/04/23 02:41 Glucagon For Inj 1 Mg Vial IM PRN PRN Hypoglycemia
[2023-12-06 15:46] VITALS: BP 155/60; PULSE 80; RESP 17; TEMP 36.5; O2SAT 98
[2023-12-06 18:03] LABS: Glucose Point of Care 158 mg/dl (65-105)
[2023-12-06 21:06] LABS: Glucose Point of Care 175 mg/dl (65-105)
[2023-12-06 22:00] VITALS: BP 143/75; PULSE 84; RESP 18; TEMP 37.3; O2SAT 99
[2023-12-07] MEDS: VANCOMYCIN HCL 125 MG ORAL CAPSULE PO ×5 (00:10→23:31)
[2023-12-07 05:35] LABS: Basophils Percent Auto 0.4 % (0.2-1.2); Eosinophils Absolute Auto 0.1 K/mm3 (0-0.3); Eosinophils Percent Auto 6.2 % (0-4.4); Hemoglobin 8.4 g/dL (14.0-18.0); Immature Granulocyte Absolute 0.03 K/mm3 (0.00-0.031); Immature Granulocyte Percent A 1.3 % (0-0.5); Lymphocytes Absolute Auto 0.58 K/mm3 (0.9-3.2); Lymphocytes Percent Auto 25.7 % (18.3-44.2); Mean Corpuscular Hemoglobin 39.6 pg (26-34); Mean Corpuscular Volume 113.2 fl (80-100); Mean Platelet Volume 10.5 fl (7.4-10.4); Monocytes Absolute Auto 0.2 K/mm3 (0.1-0.6); Monocytes Percent Auto 8.8 % (2.6-8.5); Neutrophils Absolute Auto 1.3 K/mm3 (1.3-6.7); Neutrophils Percent Auto 57.6 % (45.5-73.1); Platelet Count Result 90 k/mm3 (150-375); Red Blood Count 2.12 M/mm3 (4.6-6.20); Red Cell Distribution Width 13.9 % (11.5-14.5); White Blood Count 2.3 K/mm3 (4.5-10.0)
[2023-12-07 05:42] LABS: Alanine Aminotransferase 30 U/L (6-50); Albumin Level 2.4 g/dL (3.5-5.1); Alkaline Phosphatase 70 U/L (38-126); Anion Gap 7 mmol/L (4-12); Aspartate Amino Transferase 42 U/L (17-59); Bilirubin,Total 1.2 mg/dL (0.2-1.3); Blood Urea Nitrogen 17 mg/dL (9-20); Calcium 7.8 mg/dL (8.4-10.2); Carbon Dioxide 19 mmol/L (22-30); Chloride 108 mmol/L (98-107); Estimated CRCL calculation 56 ml/min; Estimated Glomerular Filt Rate > 60; Glucose 99 mg/dL (65-110); Magnesium 1.7 mg/dL (1.6-2.3); Sodium 134 mmol/L (137-145)
[2023-12-07 06:00] VITALS: BP 133/51; PULSE 77; RESP 16; TEMP 36.7; O2SAT 97
[2023-12-07] MEDS: SODIUM CHLORIDE 0.9% IV 1,000 ML 75 ML IV CONT ×2 (06:17→20:30)
[2023-12-07 06:22] LABS: Anisocytosis 1+; Macrocytosis 1+ (NORMAL); Platelet Estimate Decreased (Adequate); Schistocytes None Seen
[2023-12-07 08:02] LABS: Glucose Point of Care 100 mg/dl (65-105)
[2023-12-07] MEDS: VITAMIN B COMPLEX CAPSULE 1 CAP PO (10:05)
[2023-12-07] MEDS: OPTI-GEN TAB 1 TABLET PO (10:05)
[2023-12-07] MEDS: OMEGA 3 POLYUNSAT FATTY ACIDS 1 GM CAP PO (10:05)
[2023-12-07] MEDS: TOLNAFTATE 1% POWDER 45 GM BTL 1 APPLIC TOPICAL ×2 (10:05→20:31)
[2023-12-07 10:10] VITALS: O2SAT 97
--- NOTE | 2023-12-07 10:58 | PM.IMPN ---
Progress Note: A&P Assessment and Plan (1) COVID-19: Code(s): U07.1 - COVID-19 Status: Acute Plan # COVID-19 -COVID-19 positive. -discussed the case with ID who agrees with symptomatic management. -continue supportive care, Tylenol for fever -Patient likely acquired COVID-19 during most recent hospitalization -supplement oxygen as needed, goal O2 greater than 90%, currently on room air -chest x-ray no acute finding -recently completed antibiotics for UTI with Rocephin and then Augmentin # C diff infection: Oral vancomycin. diarrhe slowing down. # debility -acute worsening of weakness likely secondary to COVID-19 -unclear how much worse his debility is after 1 day at SNF -PT and OT consult -discussed the case with PT. -patient is functionally declined due to COVID. -patient will benefit from rehab upon discharge. # acute kidney injury -creatinine elevated 1.4, baseline 1.0-1.1 -continue normal saline 75 cc/hr, -held diuretic, losartan # itl-xdzscwy-xxmautxyq type 2 diabetes: Hold metformin, Amaryl, continue sliding scale insulin, Accu-Cheks a.c. HS, hypoglycemia protocol # intertrigo: Continue tolnaftate BID # myelodysplastic syndrome # chronic pancytopenia # recent urinary retention resolved after voiding trial. Patient required straight catheterization x2 and San has been replaced # history of alcohol cirrhosis, alcohol use disorder: Currently sober Diet: Diabetic diet with Glucerna DVT prophylaxis: SCDs, no chemoprophylaxis with thrombocytopenia Code status: DNR Disposition: From nursing facility which he was recently placed in PT OT to see Subjective Date/time seen: 12/07/23 10:58 Interval history: No overnight events. Diarrhea slowed down. No abdominal pain nausea vomiting. No Fever chills. Labs reviewed Review of Systems Review of Systems: All systems reviewed & are unremarkable except as noted in HPI and below Exam Narrative: - GENERAL: Pleasant elderly male in no acute distress. Well-nourished. Generalized weakness - EYES: EOMI. Anicteric. - HENT: Moist mucous membranes. - LUNGS: Clear to auscultation bilaterally, no wheezing, rhonchi, or rales. Nonlabored respiration - CARDIOVASCULAR: Regular rate and rhythm. No murmur. No JVD. - ABDOMEN: Soft, non-tender and non-distended. No palpable masses. - EXTREMITIES: No edema. Peripheral pulses 2+. Non-tender. - NEUROLOGIC: No focal neurological deficits. CN II-XII grossly intact. - PSYCHIATRIC: Awake, Alert and oriented x 3. Appropriate mood and affect. - SKIN: No rashes or lesions. Warm. - LYMPH: No cervical lymphadenopathy. Objective Data Vital Signs Vital Signs: Vital Signs - 24 hr 12/06/23 15:46 12/06/23 22:00 12/07/23 06:00 Temperature 97.7 F 99.1 F 98.1 F Pulse Rate 80 84 77 Respiratory Rate 17 18 16 Blood Pressure 155/60 H 143/75 H 133/51 L Pulse Oximetry 98 99 97 Intake/Output Intake/Output: Intake & Output 12/04/23 12/05/23 12/06/23 12/07/23 23:59 23:59 23:59 23:59 Intake Total 2657.5 3313.7 2920 480 Output Total 1550 1300 2050 900 Balance 1107.5 2013.7 870 -420 Meds/Results Medications: Active Medications Generic Name Dose Route Start Last Admin Trade Name Freq PRN Reason Stop Dose Admin Acetaminophen 650 mg 12/03/23 23:00 12/04/23 20:19 Acetaminophen 325 Mg Tablet PO 650 mg Q4H PRN Administration Mild Pain (1-3) or Fever Dextrose 12.5 gm 12/04/23 02:41 Dextrose 50% 25 Gm/50 Ml Syringe IV PUSH PRN PRN Hypoglycemia Protocol Enoxaparin Sodium 30 mg 12/05/23 09:00 12/07/23 09:58 Enoxaparin 30 Mg/0.3 Ml Syringe SUB-Q Not Given DAILY GOMEZ Fish Oil 1 gm 12/04/23 09:00 12/07/23 10:05 [place] 3 Polyunsat Fatty Acids 1 Gm Cap PO 1 gm DAILY GOMEZ Administration Glimepiride 1 mg 12/04/23 08:00 12/06/23 09:08 Glimepiride 1 Mg Tablet PO Not Given DAILY@0800 GOMEZ Glucagon 1 mg 12/04/23 02:41 Glucagon For Inj
[2023-12-07 12:12] LABS: Glucose Point of Care 152 mg/dl (65-105)
[2023-12-07 17:12] LABS: Glucose Point of Care 154 mg/dl (65-105)
[2023-12-07 17:36] VITALS: BP 124/64; PULSE 79; RESP 18; TEMP 36.8; O2SAT 99
[2023-12-07 20:43] LABS: Glucose Point of Care 153 mg/dl (65-105)
[2023-12-07 21:14] VITALS: BP 132/59; PULSE 80; RESP 18; TEMP 37.3; O2SAT 99
[2023-12-08 05:29] LABS: Basophils Percent Auto 0.9 % (0.2-1.2); Eosinophils Absolute Auto 0.2 K/mm3 (0-0.3); Eosinophils Percent Auto 6.4 % (0-4.4); Hematocrit 25.7 % (42.0-52.0); Hemoglobin 8.7 g/dL (14.0-18.0); Immature Granulocyte Absolute 0.02 K/mm3 (0.00-0.031); Immature Granulocyte Percent A 0.9 % (0-0.5); Immature Platelet Fraction Pct 3.7 % (0.9-11.2); Lymphocytes Absolute Auto 0.56 K/mm3 (0.9-3.2); Mean Corpuscular HGB Conc 33.9 g/dl (32-36); Mean Corpuscular Hemoglobin 38.7 pg (26-34); Mean Corpuscular Volume 114.2 fl (80-100); Mean Platelet Volume 10.2 fl (7.4-10.4); Monocytes Absolute Auto 0.2 K/mm3 (0.1-0.6); Monocytes Percent Auto 8.2 % (2.6-8.5); Neutrophils Absolute Auto 1.4 K/mm3 (1.3-6.7); Neutrophils Percent Auto 59.6 % (45.5-73.1); Platelet Count Result 106 k/mm3 (150-375); Red Blood Count 2.25 M/mm3 (4.6-6.20); Red Cell Distribution Width 13.7 % (11.5-14.5); White Blood Count 2.3 K/mm3 (4.5-10.0)
[2023-12-08 05:42] LABS: Alanine Aminotransferase 30 U/L (6-50); Albumin Level 2.4 g/dL (3.5-5.1); Alkaline Phosphatase 70 U/L (38-126); Anion Gap 5 mmol/L (4-12); Aspartate Amino Transferase 44 U/L (17-59); Bilirubin,Total 1.3 mg/dL (0.2-1.3); Blood Urea Nitrogen 18 mg/dL (9-20); Calcium 7.6 mg/dL (8.4-10.2); Carbon Dioxide 20 mmol/L (22-30); Chloride 107 mmol/L (98-107); Estimated CRCL calculation 62 ml/min; Estimated Glomerular Filt Rate > 60; Glucose 107 mg/dL (65-110); Magnesium 1.8 mg/dL (1.6-2.3); Potassium 4.2 mmol/L (3.4-5.0); Sodium 132 mmol/L (137-145)
[2023-12-08 06:00] VITALS: BP 156/68; PULSE 78; RESP 20; TEMP 36.9; O2SAT 99
[2023-12-08 06:02] LABS: Anisocytosis 1+; Band Neutrophils Percent 4 % (0-6); Eosinophils Absolute Manual 0.04 K/mm3 (0.02-0.50); Eosinophils Percent Manual 2 % (0-4); Hypochromasia 1+; Lymphocytes Absolute Manual 0.23 K/mm3 (1.1-4.5); Neutrophils Absolute Manual 2.02 K/mm3 (1.3-6.7); Neutrophils Percent Manual 84 % (46-73); Platelet Estimate Decreased (Adequate); Schistocytes None Seen; Smudge Cells PRESENT; Total Cells Counted 50
[2023-12-08] MEDS: VANCOMYCIN HCL 125 MG ORAL CAPSULE PO ×3 (06:20→17:24)
[2023-12-08] MEDS: SODIUM CHLORIDE 0.9% IV 1,000 ML 75 ML IV CONT ×2 (06:20→10:10)
[2023-12-08 08:36] LABS: Glucose Point of Care 106 mg/dl (65-105)
[2023-12-08 09:00] VITALS: O2SAT 100
[2023-12-08] MEDS: OPTI-GEN TAB 1 TABLET PO (09:16)
[2023-12-08] MEDS: VITAMIN B COMPLEX CAPSULE 1 CAP PO (09:16)
[2023-12-08] MEDS: OMEGA 3 POLYUNSAT FATTY ACIDS 1 GM CAP PO (09:16)
[2023-12-08] MEDS: ENOXAPARIN 40 MG/0.4 ML SYRINGE SUB-Q (09:17)
[2023-12-08] MEDS: TOLNAFTATE 1% POWDER 45 GM BTL 1 APPLIC TOPICAL ×2 (09:17→20:25)
--- NOTE | 2023-12-08 12:10 | PM.IMPN ---
Progress Note: A&P Assessment and Plan (1) COVID-19: Code(s): U07.1 - COVID-19 Status: Acute Plan # COVID-19 -COVID-19 positive. -discussed the case with ID who agrees with symptomatic management. -continue supportive care, Tylenol for fever -Patient likely acquired COVID-19 during most recent hospitalization -supplement oxygen as needed, goal O2 greater than 90%, currently on room air -chest x-ray no acute finding -recently completed antibiotics for UTI with Rocephin and then Augmentin # C diff infection: Oral vancomycin. diarrhea slowing down. Continue on oral vancomycin # debility with polyneuropathy lumbar spondylosis -acute worsening of weakness likely secondary to COVID-19 -unclear how much worse his debility is after 1 day at [facility] -PT and OT consult -discussed the case with PT. -patient is functionally declined due to COVID. -patient will benefit from rehab upon discharge. # acute kidney injury -creatinine elevated 1.4, baseline 1.0-1.1 -continue normal saline 75 cc/hr, -held diuretic, losartan # bmv-alrdhdg-abvxikvsn type 2 diabetes: Hold metformin, Amaryl, continue sliding scale insulin, Accu-Cheks a.c. HS, hypoglycemia protocol # intertrigo: Continue tolnaftate BID # myelodysplastic syndrome follows with Dr. Mendosa # chronic pancytopenia stable counts # recent urinary retention resolved after voiding trial. Patient required straight catheterization x2 and San has been replaced # history of alcohol cirrhosis, alcohol use disorder: Currently sober Diet: Diabetic diet with Glucerna DVT prophylaxis: SCDs, X Code status: DNR Disposition: From nursing facility which he was recently placed in PT OT to see Subjective Date/time seen: 12/08/23 12:10 Interval history: Diarrhea is slowing down. He is feeling better. Still weak Review of Systems Review of Systems: All systems reviewed & are unremarkable except as noted in HPI and below Exam Narrative: - GENERAL: Pleasant elderly male in no acute distress. Well-nourished. Generalized weakness - EYES: EOMI. Anicteric. - HENT: Moist mucous membranes. - LUNGS: Clear to auscultation bilaterally, no wheezing, rhonchi, or rales. Nonlabored respiration - CARDIOVASCULAR: Regular rate and rhythm. No murmur. No JVD. - ABDOMEN: Soft, non-tender and non-distended. No palpable masses. - EXTREMITIES: No edema. Peripheral pulses 2+. Non-tender. - NEUROLOGIC: No focal neurological deficits. CN II-XII grossly intact. - PSYCHIATRIC: Awake, Alert and oriented x 3. Appropriate mood and affect. - SKIN: No rashes or lesions. Warm. - LYMPH: No cervical lymphadenopathy. Objective Data Vital Signs Vital Signs: Vital Signs - 24 hr 12/07/23 17:36 12/07/23 21:14 12/07/23 20:00 Temperature 98.2 F 99.1 F Pulse Rate 79 80 Respiratory Rate 18 18 Blood Pressure 124/64 132/59 L Pulse Oximetry 99 99 Oxygen Delivery Room Air 12/08/23 06:00 Temperature 98.4 F Pulse Rate 78 Respiratory Rate 20 Blood Pressure 156/68 H Pulse Oximetry 99 Oxygen Delivery Intake/Output Intake/Output: Intake & Output 12/05/23 12/06/23 12/07/23 12/08/23 23:59 23:59 23:59 23:59 Intake Total 3313.7 2920 2290 1645.0 Output Total 1300 2050 1950 1200 Balance 2013.7 870 340 445.0 Meds/Results Medications: Active Medications Generic Name Dose Route Start Last Admin Trade Name Freq PRN Reason Stop Dose Admin Acetaminophen 650 mg 12/03/23 23:00 12/04/23 20:19 Acetaminophen 325 Mg Tablet PO 650 mg Q4H PRN Administration Mild Pain (1-3) or Fever Dextrose 12.5 gm 12/04/23 02:41 Dextrose 50% 25 Gm/50 Ml Syringe IV PUSH PRN PRN Hypoglycemia Protocol Enoxaparin Sodium 40 mg 12/08/23 09:00 12/08/23 09:17 Enoxaparin 40 Mg/0.4 Ml Syringe SUB-Q 40 mg DAILY GOMEZ Administration Fish Oil 1 gm 12/04/23 09:00 12/08/23 09:16 [place] 3 Polyunsat Fatty Acids 1 Gm Cap PO 1 gm DAILY GOMEZ Administrati
[2023-12-08 12:19] LABS: Glucose Point of Care 175 mg/dl (65-105)
[2023-12-08 14:00] VITALS: BP 139/53; PULSE 73; RESP 16; TEMP 36.8; O2SAT 100
[2023-12-08 17:06] LABS: Glucose Point of Care 153 mg/dl (65-105)
[2023-12-08 20:10] LABS: Glucose Point of Care 168 mg/dl (65-105)
[2023-12-08 20:38] VITALS: BP 148/61; PULSE 73; RESP 18; TEMP 37.7; O2SAT 99
[2023-12-09] MEDS: VANCOMYCIN HCL 125 MG ORAL CAPSULE PO ×4 (00:22→17:34)
[2023-12-09 05:13] VITALS: BP 151/53; PULSE 78; RESP 20; TEMP 36.4; O2SAT 94
[2023-12-09 08:40] LABS: Glucose Point of Care 124 mg/dl (65-105)
[2023-12-09] MEDS: VITAMIN B COMPLEX CAPSULE 1 CAP PO (09:08)
[2023-12-09] MEDS: TOLNAFTATE 1% POWDER 45 GM BTL 1 APPLIC TOPICAL (09:08)
[2023-12-09] MEDS: OMEGA 3 POLYUNSAT FATTY ACIDS 1 GM CAP PO (09:08)
[2023-12-09] MEDS: OPTI-GEN TAB 1 TABLET PO (09:08)
[2023-12-09 09:10] VITALS: O2SAT 94
--- NOTE | 2023-12-09 10:59 | PC.NURSE ---
Lovenox 40 mg not administered, no current labs available, patient has a history of low platelets, provider notified.
[2023-12-09] MEDS: ENOXAPARIN 40 MG/0.4 ML SYRINGE SUB-Q (11:49)
--- NOTE | 2023-12-09 12:14 | PC.NURSE ---
Lovenox administered at 1200, ok to administer without current platelet count per verbal confirmation from hospitalist.
[2023-12-09 12:31] LABS: Glucose Point of Care 143 mg/dl (65-105)
--- NOTE | 2023-12-09 13:08 | PM.IMPN ---
Progress Note: A&P Assessment and Plan (1) COVID-19: Code(s): U07.1 - COVID-19 Status: Acute Plan # COVID-19 -COVID-19 positive. -discussed the case with ID who agrees with symptomatic management. -continue supportive care, Tylenol for fever -Patient likely acquired COVID-19 during most recent hospitalization -supplement oxygen as needed, goal O2 greater than 90%, currently on room air -chest x-ray no acute finding -recently completed antibiotics for UTI with Rocephin and then Augmentin # C diff infection: Oral vancomycin. diarrhea slowing down. Continue on oral vancomycin # debility with polyneuropathy lumbar spondylosis -acute worsening of weakness likely secondary to COVID-19 -unclear how much worse his debility is after 1 day at [facility] -PT and OT consult -discussed the case with PT. -patient is functionally declined due to COVID. -patient will benefit from rehab upon discharge. # acute kidney injury -creatinine elevated 1.4, baseline 1.0-1.1 -continue normal saline 75 cc/hr, -held diuretic, losartan # rka-gjwhekn-kttxynzha type 2 diabetes: Hold metformin, Amaryl, continue sliding scale insulin, Accu-Cheks a.c. HS, hypoglycemia protocol # intertrigo: Continue tolnaftate BID # myelodysplastic syndrome follows with Dr. Mendosa # chronic pancytopenia stable counts # recent urinary retention resolved after voiding trial. Patient required straight catheterization x2 and San has been replaced # history of alcohol cirrhosis, alcohol use disorder: Currently sober Diet: Diabetic diet with Glucerna DVT prophylaxis: SCDs, X Code status: DNR Disposition: From nursing facility which he was recently placed in PT OT to see the to go to SNF Subjective Date/time seen: 12/09/23 13:08 Interval history: Solid stool today. Weakness is improving working with therapy Review of Systems Review of Systems: All systems reviewed & are unremarkable except as noted in HPI and below Exam Narrative: - GENERAL: Pleasant elderly male in no acute distress. Well-nourished. Generalized weakness - EYES: EOMI. Anicteric. - HENT: Moist mucous membranes. - LUNGS: Clear to auscultation bilaterally, no wheezing, rhonchi, or rales. Nonlabored respiration - CARDIOVASCULAR: Regular rate and rhythm. No murmur. No JVD. - ABDOMEN: Soft, non-tender and non-distended. No palpable masses. - EXTREMITIES: No edema. Peripheral pulses 2+. Non-tender. - NEUROLOGIC: No focal neurological deficits. CN II-XII grossly intact. - PSYCHIATRIC: Awake, Alert and oriented x 3. Appropriate mood and affect. - SKIN: No rashes or lesions. Warm. - LYMPH: No cervical lymphadenopathy. Objective Data Vital Signs Vital Signs: Vital Signs - 24 hr 12/08/23 14:00 12/08/23 20:38 12/08/23 20:00 Temperature 98.2 F 99.9 F H Pulse Rate 73 73 Respiratory Rate 16 18 Blood Pressure 139/53 L 148/61 H Pulse Oximetry 100 99 Oxygen Delivery Room Air 12/09/23 05:13 Temperature 97.5 F L Pulse Rate 78 Respiratory Rate 20 Blood Pressure 151/53 H Pulse Oximetry 94 Oxygen Delivery Intake/Output Intake/Output: Intake & Output 12/06/23 12/07/23 12/08/23 12/09/23 23:59 23:59 23:59 23:59 Intake Total 2920 2290 2125.0 480 Output Total 2050 1950 2300 1200 Balance 870 340 -175.0 -720 Meds/Results Medications: Active Medications Generic Name Dose Route Start Last Admin Trade Name Freq PRN Reason Stop Dose Admin Acetaminophen 650 mg 12/03/23 23:00 12/04/23 20:19 Acetaminophen 325 Mg Tablet PO 650 mg Q4H PRN Administration Mild Pain (1-3) or Fever Dextrose 12.5 gm 12/04/23 02:41 Dextrose 50% 25 Gm/50 Ml Syringe IV PUSH PRN PRN Hypoglycemia Protocol Enoxaparin Sodium 40 mg 12/08/23 09:00 12/09/23 11:49 Enoxaparin 40 Mg/0.4 Ml Syringe SUB-Q 40 mg DAILY GOMEZ Administration Fish Oil 1 gm 12/04/23 09:00 12/09/23 09:08 [place] 3 Polyunsat Fatty Acids 1 Gm Cap PO 1 gm DA
[2023-12-09 15:49] VITALS: O2SAT 95
[2023-12-09 16:12] VITALS: BP 137/47; PULSE 75; RESP 18; TEMP 36.1; O2SAT 100
[2023-12-09 17:19] LABS: Glucose Point of Care 178 mg/dl (65-105)
--- NOTE | 2023-12-09 18:48 | PDONCCN ---
HPI - Date of Consult Date/Time: 12/09/23 18:48 Requesting Physician: Cirilo Perea DO Primary Care Provider: Sneha Garcia MD - Consult Narrative Reason for consult: Myelodysplastic syndrome Narrative: Robby Graves is a 83 year old male with history of low-grade myelodysplastic syndrome currently on chemotherapy with white is a. Patient had last chemotherapy on November 21. Patient also has a history of alcohol induced liver cirrhosis, hypertension and polymyalgia rheumatica along with history of colon cancer in remission came into the hospital with generalized weakness. Patient was discharged from hospital on December 01 after being treated for UTI. He was found to have COVID-19 positive when he came into the ER. His recent labs showed pancytopenia with WBC count of 2.3 and hemoglobin of 8.7. He is feeling slightly stronger and getting better. It kidney function has improved and now normal with creatinine of 0.9. Review of Systems - Review of Systems All systems reviewed & are unremarkable except as noted in HPI and [facility] Medical History: Medical History (Last Reviewed 12/04/23 @ 02:55 by Charis Perea DO) Acute calculous cholecystitis Acute left flank pain Alcohol abuse Alcohol abuse Alcoholic cirrhosis of liver without ascites Arthritis Balanitis Benign reactive hypertension Blood glucose elevated Cholelithiasis NOS Chronic kidney disease, stage 3 (moderate) Chronic kidney disease, stage II (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 Congestive splenomegaly Cough Counseling for living will Cyst of kidney, acquired Dietary counseling and surveillance Onset Date: 08/28/18 DISH (diffuse idiopathic skeletal hyperostosis) DISH (diffuse idiopathic skeletal hyperostosis) Diverticulosis DM type 2 causing CKD stage 3 Elevated lactic acid level Elevated liver enzymes Encounter for other general examination Essential (primary) hypertension Fatty liver Gout, unspecified Hemochromatosis History of colon cancer 2009 s/p right hemicolectomy and chemotherapy History of colon cancer in adulthood Idiopathic chronic gout Leukocytosis (leucocytosis) Macrocytic anemia Malignant (primary) neoplasm, unspecified Mixed hyperlipidemia Neuropathy associated with cancer PMR (polymyalgia rheumatica) Pneumonia Polyneuropathy 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assified elsewhere Portal hypertension Right renal mass Rotator cuff tear arthropathy Sepsis Shoulder arthritis SIRS (systemic inflammatory response syndrome) Thrombocytopenia Ventral hernia without obstruction or gangrene Surgical History: Surgical History (Last Reviewed 12/04/23 @ 02:55 by Charis Perea DO) History of colon resection 2009 Family History: Family History (Last Reviewed 12/04/23 @ 02:55 by Charis Perea DO) Sibling Family history of malignant neoplasm of testis Malignant neoplasm of prostate Family history of arthritis Patient's brother is Hypertension Family history of gout - Social History Social History: Social History (Last Reviewed 12/04/23 @ 02:55 by Charis Perea DO) Gender Identity: Gender identity (if verbalized by the patient): Male Sexual Orientation: Sexual Orientation (if Verbalized by the Patient): Straight or Heterosexual Alcohol Use: Alcohol intake: former Alcohol use details: 2-3 cans/week Substance Use: Substance use: never Substance use type: does not use Others: Spiritual care concerns: No Living Arrangements: Living arrangements: alone Oppucation/Education: Occupation/Education: retired Smoking Status: Smoking status: Never smoker Second hand tobacco smoke exposure: No Social Determinants of Health: Do You Feel Safe in your Home?: Yes Has the Lack of Transportation Kept You From Medical Appointments
[2023-12-09 20:29] VITALS: BP 138/48; PULSE 73; RESP 18; TEMP 36.8; O2SAT 100
[2023-12-09 20:35] LABS: Glucose Point of Care 164 mg/dl (65-105)
[2023-12-09 22:34] LABS: Iron 25 ug/dL (49-181)
[2023-12-09 22:44] LABS: Percent Iron Saturation 14 % (20-50)
[2023-12-09 23:39] LABS: Vitamin B12 > 1000.0 pg/mL (239-931)
[2023-12-10] MEDS: TOLNAFTATE 1% POWDER 45 GM BTL 1 APPLIC TOPICAL ×3 (00:34→23:02)
[2023-12-10] MEDS: VANCOMYCIN HCL 125 MG ORAL CAPSULE PO ×5 (00:34→23:01)
[2023-12-10 05:56] VITALS: BP 138/52; PULSE 75; RESP 18; TEMP 36.4; O2SAT 99
[2023-12-10 06:17] LABS: Basophils Percent Auto 0.7 % (0.2-1.2); Eosinophils Absolute Auto 0.1 K/mm3 (0-0.3); Eosinophils Percent Auto 5.1 % (0-4.4); Hematocrit 25.6 % (42.0-52.0); Hemoglobin 8.5 g/dL (14.0-18.0); Immature Granulocyte Absolute 0.01 K/mm3 (0.00-0.031); Immature Granulocyte Percent A 0.4 % (0-0.5); Immature Platelet Fraction Pct 4.1 % (0.9-11.2); Lymphocytes Percent Auto 29.3 % (18.3-44.2); Mean Corpuscular HGB Conc 33.2 g/dl (32-36); Mean Corpuscular Hemoglobin 37.6 pg (26-34); Mean Corpuscular Volume 113.3 fl (80-100); Mean Platelet Volume 10.4 fl (7.4-10.4); Monocytes Absolute Auto 0.3 K/mm3 (0.1-0.6); Monocytes Percent Auto 10.6 % (2.6-8.5); Neutrophils Absolute Auto 1.5 K/mm3 (1.3-6.7); Neutrophils Percent Auto 53.9 % (45.5-73.1); Platelet Count Result 145 k/mm3 (150-375); Red Blood Count 2.26 M/mm3 (4.6-6.20); Red Cell Distribution Width 13.7 % (11.5-14.5); White Blood Count 2.7 K/mm3 (4.5-10.0)
[2023-12-10 06:22] LABS: Alanine Aminotransferase 33 U/L (6-50); Albumin Level 2.4 g/dL (3.5-5.1); Alkaline Phosphatase 79 U/L (38-126); Anion Gap 7 mmol/L (4-12); Aspartate Amino Transferase 46 U/L (17-59); Bilirubin,Total 1.2 mg/dL (0.2-1.3); Blood Urea Nitrogen 14 mg/dL (9-20); Calcium 8.1 mg/dL (8.4-10.2); Carbon Dioxide 20 mmol/L (22-30); Chloride 106 mmol/L (98-107); Estimated CRCL calculation 62 ml/min; Estimated Glomerular Filt Rate > 60; Glucose 111 mg/dL (65-110); Magnesium 1.8 mg/dL (1.6-2.3); Sodium 133 mmol/L (137-145)
[2023-12-10 07:25] LABS: Macrocytosis 1+ (NORMAL); Platelet Estimate Adequate (Adequate)
[2023-12-10 07:26] LABS: Schistocytes None Seen
[2023-12-10 07:37] LABS: Glucose Point of Care 116 mg/dl (65-105)
[2023-12-10] MEDS: OMEGA 3 POLYUNSAT FATTY ACIDS 1 GM CAP PO (09:21)
[2023-12-10] MEDS: ENOXAPARIN 40 MG/0.4 ML SYRINGE SUB-Q (09:21)
[2023-12-10] MEDS: VITAMIN B COMPLEX CAPSULE 1 CAP PO (09:21)
[2023-12-10] MEDS: OPTI-GEN TAB 1 TABLET PO (09:21)
[2023-12-10 11:34] LABS: Glucose Point of Care 217 mg/dl (65-105)
[2023-12-10] MEDS: INSULIN ASPART (*BKC) 100 UNITS/ML SUB-Q (12:25)
--- NOTE | 2023-12-10 12:37 | PM.IMPN ---
Progress Note: A&P Assessment and Plan (1) COVID-19: Code(s): U07.1 - COVID-19 Status: Acute Plan # COVID-19 -COVID-19 positive. -discussed the case with ID who agrees with symptomatic management. -continue supportive care, Tylenol for fever -Patient likely acquired COVID-19 during most recent hospitalization -supplement oxygen as needed, goal O2 greater than 90%, currently on room air -chest x-ray no acute finding -recently completed antibiotics for UTI with Rocephin and then Augmentin # C diff infection: Oral vancomycin. diarrhea slowing down. Continue on oral vancomycin # debility with polyneuropathy lumbar spondylosis -acute worsening of weakness likely secondary to COVID-19 -unclear how much worse his debility is after 1 day at SNF -PT and OT consult -discussed the case with PT. -patient is functionally declined due to COVID. -patient will benefit from rehab upon discharge. Left-sided weakness as reported by Physical therapy. He does have L3/L4 left moderate neuroforaminal stenosis. Will order brain MRI and cervical MRI for completion. Recent head CT was without any abnormality # acute kidney injury -creatinine elevated 1.4, baseline 1.0-1.1 -continue normal saline 75 cc/hr, -held diuretic, losartan # rpl-fzlopxs-rvfluqdca type 2 diabetes: Hold metformin, Amaryl, continue sliding scale insulin, Accu-Cheks a.c. HS, hypoglycemia protocol # intertrigo: Continue tolnaftate BID # myelodysplastic syndrome follows with Dr. Mendosa. Appreciate consultation. His plan to start chemotherapy cycle 3 may need to be delayed # chronic pancytopenia stable counts # recent urinary retention resolved after voiding trial. Patient required straight catheterization x2 and San has been replaced # history of alcohol cirrhosis, alcohol use disorder: Currently sober Diet: Diabetic diet with Glucerna DVT prophylaxis: SCDs, X Code status: DNR Disposition: From nursing facility which he was recently placed in PT OT to see the to go to SNF. Await placement Subjective Date/time seen: 12/10/23 12:37 Interval history: Still weak. Physical therapy mentions is weaker on the left side. Diarrhea has resolved. Overall feels better Review of Systems Review of Systems: All systems reviewed & are unremarkable except as noted in HPI and below Exam Narrative: - GENERAL: Pleasant elderly male in no acute distress. Well-nourished. Generalized weakness - EYES: EOMI. Anicteric. - HENT: Moist mucous membranes. - LUNGS: Clear to auscultation bilaterally, no wheezing, rhonchi, or rales. Nonlabored respiration - CARDIOVASCULAR: Regular rate and rhythm. No murmur. No JVD. - ABDOMEN: Soft, non-tender and non-distended. No palpable masses. - EXTREMITIES: No edema. Peripheral pulses 2+. Non-tender. - NEUROLOGIC: No focal neurological deficits. CN II-XII grossly intact. - PSYCHIATRIC: Awake, Alert and oriented x 3. Appropriate mood and affect. - SKIN: No rashes or lesions. Warm. - LYMPH: No cervical lymphadenopathy. Objective Data Vital Signs Vital Signs: Vital Signs - 24 hr 12/09/23 16:12 12/09/23 15:49 12/09/23 20:29 Temperature 97.0 F L 98.2 F Pulse Rate 75 73 Respiratory Rate 18 18 Blood Pressure 137/47 L 138/48 L Pulse Oximetry 100 95 100 Oxygen Delivery Room Air 12/09/23 20:00 12/10/23 05:56 12/10/23 08:50 Temperature 97.5 F L Pulse Rate 75 Respiratory Rate 18 Blood Pressure 138/52 L Pulse Oximetry 99 Oxygen Delivery Room Air Room Air Intake/Output Intake/Output: Intake & Output 12/07/23 12/08/23 12/09/23 12/10/23 23:59 23:59 23:59 23:59 Intake Total 2290 2125.0 1760 886 Output Total 1950 2300 2175 2150 Balance 340 -175.0 -055 -1264 Meds/Results Medications: Active Medications Generic Name Dose Route Start Last Admin Trade Name Freq PRN Reason Stop Dose Admin Acetaminophen 650 mg 12/03/23 23:00 12/04/23 20:19 Acetaminophen 325 Mg Tablet PO 65
[2023-12-10 14:00] VITALS: BP 133/56; PULSE 75; RESP 20; TEMP 36.7; O2SAT 100
[2023-12-10 17:05] LABS: Glucose Point of Care 127 mg/dl (65-105)
[2023-12-10 22:00] VITALS: BP 138/58; PULSE 75; RESP 20; TEMP 37.7; O2SAT 99
[2023-12-11 05:42] LABS: Glucose Point of Care 176 mg/dl (65-105)
[2023-12-11] MEDS: VANCOMYCIN HCL 125 MG ORAL CAPSULE PO ×3 (05:56→18:17)
[2023-12-11 06:00] VITALS: BP 150/55; PULSE 75; RESP 16; TEMP 37.2; O2SAT 99
[2023-12-11 08:00] VITALS: O2SAT 99
[2023-12-11 08:11] LABS: Glucose Point of Care 114 mg/dl (65-105)
[2023-12-11] MEDS: VITAMIN B COMPLEX CAPSULE 1 CAP PO (09:50)
[2023-12-11] MEDS: ENOXAPARIN 40 MG/0.4 ML SYRINGE SUB-Q (09:50)
[2023-12-11] MEDS: OPTI-GEN TAB 1 TABLET PO (09:50)
[2023-12-11] MEDS: OMEGA 3 POLYUNSAT FATTY ACIDS 1 GM CAP PO (09:50)
[2023-12-11] MEDS: TOLNAFTATE 1% POWDER 45 GM BTL 1 APPLIC TOPICAL (09:50)
[2023-12-11 12:02] LABS: Glucose Point of Care 168 mg/dl (65-105)
--- NOTE | 2023-12-11 13:52 | PM.DS ---
DS: Admitting Diagnosis Discharge Date December 11, 2023 Admitting Diagnosis Fever DS: Discharge Diagnosis Discharge Diagnosis (1) COVID-19: Code(s): U07.1 - COVID-19 Status: Acute (2) TRINIDAD (acute kidney injury): Code(s): N17.9 - Acute kidney failure, unspecified Status: Acute (3) BPH loc w urin obs/LUTS: Code(s): N40.1 - Benign prostatic hyperplasia with lower urinary tract symptoms Status: Acute (4) Acute urinary retention: Code(s): R33.8 - Other retention of urine Status: Acute (5) Clostridium difficile colitis: Code(s): A04.72 - Enterocolitis due to Clostridium difficile, not specified as recurrent Status: Acute DS: Summary Hospital Course Hospital Course: H&P and plan via Charis Perea DO on 12/04/23 Patient is an 83-year-old male with past medical history of CKD3B, myelodysplastic syndrome, history of alcohol use disorder, alcohol cirrhosis, central hypertension, chronic lower extremity edema, polymyalgia rheumatica, history of colon cancer, gxi-esezkuo-koykczucg diabetes, hyperlipidemia presents to ED with complaints of weakness. Patient was discharged 12/01 after being treated for UTI and debility. At the nursing facility he was found to have a T-max 102?. He was brought to ED for further evaluation. During hospitalization he also had urinary retention which may be associated with constipation. In the ED: In the ED patient was found to have COVID-19 positive which is new compared to recent test during last hospitalization. Patient treated supportive care. With patient being on room air he is not receiving any other treatment for COVID-19. There having significant difficulty with ambulating and will not be able to go back to nursing facility today. Patient being admitted for debility. --- Plan # COVID-19 -patient had T-max 102?, COVID-19 positive. Patient likely acquired COVID-19 during most recent hospitalization -no respiratory symptoms, holding off on steroids in any COVID-19 treatment -continue supportive care, Tylenol for fever -supplement oxygen as needed, goal O2 greater than 90%, currently on room air -chest x-ray no acute finding -recently completed antibiotics for UTI with Rocephin and then Augmentin # debility -acute worsening of weakness likely secondary to COVID-19 -unclear how much worse his debility is after 1 day at [facility] -PT and OT consult # acute kidney injury -creatinine elevated 1.4, baseline 1.0-1.1 -continue normal saline 75 cc/hr, will give fluids overnight -held diuretic, losartan # chronic conditions -azx-rzsbljn-hzxhenikk type 2 diabetes: Continue metformin, Amaryl, sliding scale insulin, Accu-Cheks a.c. HS, hypoglycemia protocol -supplements: May continue B complex, opti-gen -intertrigo: Continue tolnaftate BID -myelodysplastic syndrome -chronic pancytopenia -recent urinary retention resolved after voiding trial -history of alcohol cirrhosis, alcohol use disorder: Currently sober ----- On 12/11/2023 the patient is stable for discharge back to [facility] for subacute rehab. His weakness has improved. He has 1 bowel movement per day now which is formed. He will continue vancomycin 125 mg p.o. q.6 hours to end on 12/15/2023. Due to a fever of 102 patient was tested for COVID which resulted positive. Now afebrile. He did not have any shortness of breath or low oxygen via pulse oximetry. No treatment was administered for this. TRINIDAD resolved. Advised to follow up with urology for urinary retention. Advised to follow up with neurosurgery for continued monitoring and mgmt of moderate/severe degenerative disc disease. Advised to follow up with oncology for continued treatment of low grade myelodysplastic syndrome. He was DNR during this admission. All of his concerns were answered to satisfaction, risks and benefits of medications discussed. Time Spent with Patient Time attestation: Total time spent providing an
[2023-12-11 14:00] VITALS: BP 144/60; PULSE 70; RESP 18; TEMP 36.8; O2SAT 99
[2023-12-11 17:45] LABS: Glucose Point of Care 166 mg/dl (65-105)
== END 2023-12-11 19:40 | DRG 178 ==
LOC: ANHED 22:29 → ANH3MED 12-04 00:07
PROVIDERS: General Practice; Internal Medicine; Internal Medicine Hematology & Oncology; Admitting Provider Student in an Organized Health Care Education/Training Program; Emergency Provider Emergency Medicine; PCP Family Medicine; Visit Provider General Practice
DX: U07.1 COVID-19 (principal); A04.72 Enterocolitis due to Clostridium difficile, not specified as recurrent; N17.9 Acute kidney failure, unspecified; D61.818 Other pancytopenia; K76.6 Portal hypertension; K70.30 Alcoholic cirrhosis of liver without ascites; I12.9 Hypertensive chronic kidney disease with stage 1 through stage 4 chronic kidney disease, or unspecified chronic kidney disease; N18.32 Chronic kidney disease, stage 3b; E11.42 Type 2 diabetes mellitus with diabetic polyneuropathy; E11.22 Type 2 diabetes mellitus with diabetic chronic kidney disease; E78.2 Mixed hyperlipidemia; E83.119 Hemochromatosis, unspecified; D46.20 Refractory anemia with excess of blasts, unspecified; D73.2 Chronic congestive splenomegaly; N40.1 Benign prostatic hyperplasia with lower urinary tract symptoms; R33.8 Other retention of urine; R53.81 Other malaise; L30.4 Erythema intertrigo; K57.30 Diverticulosis of large intestine without perforation or abscess without bleeding; K43.9 Ventral hernia without obstruction or gangrene; M47.816 Spondylosis without myelopathy or radiculopathy, lumbar region; M10.9 Gout, unspecified; M35.3 Polymyalgia rheumatica; M48.10 Ankylosing hyperostosis [Forestier], site unspecified; F10.10 Alcohol abuse, uncomplicated; Z85.038 Personal history of other malignant neoplasm of large intestine
CPT/HCPCS: 36415; 70551; 71045; 72141; 80053; 81003; 82607; 82728; 82948; 83540; 83550; 83605; 83735; 85025; 85027; 85055; 87493; 87637; 96361; 97110; 97162; 97166; 97530; 97535; 99285; A9270; G0378; J1650; J1815; J7030